=== PATIENT | female | born 1935 | race Caucasian/White ===

== ENCOUNTER → 2016-09-05 | Outpatient (REF) | payer MEDICARE, OTHER, MEDICAID ==
[~2016-09-05] MED LIST: ALPR0.25 PO; ATEN25TA PO; ATIV1TAB10 PO; ATIV1TAB7 PO; BETA0.12 EX; CARD360C PO; CENTTAB PO; DILT60TA PO; DULC10SU2 PR; HYDR25TAB PO; LANO0.1211 PO; LASI40TA PO; MICR10CA PO; OMEP10CASR PO; PRAD150C PO; SERT-141 PO; TYLE325T5 PO; ZOLO100T PO; [UNRECOGNIZED DRUG - OTHER] PO; mylicon PO
[2016-09-05 09:28] LABS: BASO % 0.7 % (0.0-1.0); EOS # 0.2 K/mm3 (0.0-0.50); EOS % 3.5 % (0.0-3.0); LARGE UNSTAINED CELL # 0.1 K/mm3 (0.0-0.4); LARGE UNSTAINED CELL % 2.1 % (0.0-4.0); LYMPH # 1.3 K/mm3 (1.5-4.5); LYMPH % 22.4 % (24.0-44.0); MEAN CORPUSCULAR HEMOGLOBIN 30.4 pg (27.0-33.0); MEAN CORPUSCULAR HGB CONC 32.5 g/dl (32.0-36.5); MEAN CORPUSCULAR VOLUME 93.6 fl (80.0-96.0); MONO # 0.4 K/mm3 (0.0-0.8); MONO % 7.1 % (0.0-5.0); NEUTROPHILS # 3.8 K/mm3 (1.8-7.7); NEUTROPHILS % 64.1 % (36.0-66.0); PLATELET COUNT, AUTOMATED 238 k/mm3 (150-450); RED CELL DISTRIBUTION WIDTH 12.3 % (11.5-14.5); WHITE BLOOD COUNT 5.8 K/mm3 (4.0-10.0)
[2016-09-05 09:51] LABS: ANION GAP 8 MEQ/L (8-16); BLOOD UREA NITROGEN 23 MG/DL (7-18); CALCIUM LEVEL 8.9 MG/DL (8.8-10.2); CARBON DIOXIDE LEVEL 31 MEQ/L (21-32); CHLORIDE LEVEL 95 MEQ/L (98-107); CREATININE FOR GFR 0.84 MG/DL (0.55-1.02); GLOMERULAR FILTRATION RATE > 60.0 (>32); GLUCOSE, FASTING 123 MG/DL (83-110); POTASSIUM SERUM 4.1 MEQ/L (3.5-5.1); SODIUM LEVEL 134 MEQ/L (136-145)
--- NOTE | 2016-09-05 17:06 | REP ---
Clinical: Shortness of breath . Comparison: 09/07/2014 . Findings: The mediastinum and cardiac silhouette are stable and within normal limits for portable technique. The lung beach are clear without acute consolidation, effusion, or pneumothorax. Incidental note is made of azygos fissure. Skeletal structures are intact. Impression: No acute cardiopulmonary process. Signed by Brennan Logan MD 09/05/2016 04:53 P
== END ==
LOC: SKLAB8 08:00
PROVIDERS: ATTEND Family Medicine
DX: R06.02 Shortness of breath (principal)

== ENCOUNTER → 2016-11-19 | Outpatient (CLI) | payer MEDICARE, OTHER, MEDICAID ==
[~2016-11-19] MED LIST changes: -SERT-141 PO; +SERT50TA PO
--- NOTE | 2016-11-19 15:40 | PFTRPT ---
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 The patient was unable to maintain a pant frequency of 60 breaths per minute during the lung volume measurements. The patient was unable to maintain a pant frequency of 60 to 90 breaths per minute during the airway resistance measurement; therefore, maneuvers were not reported. Several attempts were made. The patient was unable to perform DLCO maneuvers, as well. Unable to keep seal on mouthpiece for DLCO maneuver. The patient was given two puffs of albuterol for postbronchodilator. ORDERING PROVIDER: Cl Sorto M.D. DATE OF SERVICE: 11/19/16 The patient was unable to do the box maneuvers or diffusion capacity measurement. SPIROMETRY: Pre and post bronchodilator study of excellent technical quality. The forced vital capacity is severely reduced. The FEV1 is out of proportion. The obstructive index is, therefore, reduced. FLOW VOLUME LOOP: The expiratory limb of the flow volume loop is consistent with significant flow rate reductions. Very favorable bronchodilator response is identified. LUNG VOLUMES: The slow vital capacity is generally in proportion. DIFFUSION CAPACITY: As noted above, the patient was unable to perform maneuvers necessary for measurement of diffusion capacity. AIRWAY MECHANICS: Airways resistance and conductance were unable to be measured. IMPRESSION: Significant underlying obstructive ventilatory defect with a significant bronchodilator response. Air trapping is suspected. A full study had been recommended, but the patient was unable to perform the required maneuvers. Clinical correlation will be necessary. MTDD
== END ==
LOC: M CARPUL 14:46
PROVIDERS: ATTEND Family Medicine
DX: R06.2 Wheezing (principal)

== ENCOUNTER → 2017-04-30 | Outpatient (REF) | payer MEDICARE, OTHER, MEDICAID ==
[2017-04-30 09:28] LABS: BASO % 0.5 % (0.0-1.0); EOS # 0.3 10^3/uL (0.0-0.50); EOS % 5.3 % (0.0-3.0); IMMATURE GRANULOCYTE % 0.2 % (0-0); LYMPH # 1.4 10^3/uL (1.5-4.5); LYMPH % 24.1 % (24.0-44.0); MEAN CORPUSCULAR HGB CONC 32.3 g/dl (32.0-36.5); MEAN CORPUSCULAR VOLUME 95.8 fl (80.0-96.0); MONO # 0.5 10^3/uL (0.0-0.8); NEUTROPHILS # 3.4 10^3/uL (1.8-7.7); NEUTROPHILS % 60.9 % (36.0-66.0); PLATELET COUNT, AUTOMATED 224 10^3/uL (150-450); RED CELL DISTRIBUTION WIDTH 12.1 % (11.5-14.5); WHITE BLOOD COUNT 5.7 10^3/uL (4.0-10.0)
[2017-04-30 10:16] LABS: ALBUMIN 3.4 GM/DL (3.2-5.2); ALBUMIN/GLOBULIN RATIO 0.87 (1.00-1.93); ALKALINE PHOSPHATASE 145 U/L (45-117); ALT/SGPT 18 U/L (12-78); ANION GAP 6 MEQ/L (8-16); AST/SGOT 13 U/L (15-37); BILIRUBIN,TOTAL 0.6 MG/DL (0.2-1.0); BLOOD UREA NITROGEN 26 MG/DL (7-18); CALCIUM LEVEL 8.8 MG/DL (8.8-10.2); CARBON DIOXIDE LEVEL 32 MEQ/L (21-32); CHLORIDE LEVEL 99 MEQ/L (98-107); GLOMERULAR FILTRATION RATE > 60.0 (>32); GLUCOSE, FASTING 118 MG/DL (83-110); POTASSIUM SERUM 4.2 MEQ/L (3.5-5.1); SODIUM LEVEL 137 MEQ/L (136-145); TOTAL PROTEIN 7.3 GM/DL (6.4-8.2)
== END ==
LOC: SKLAB7 07:00
PROVIDERS: ATTEND Family Medicine
DX: R60.9 Edema, unspecified (principal); F32.9 Major depressive disorder, single episode, unspecified

== ENCOUNTER → 2017-06-10 | Outpatient (REF) | payer MEDICARE, OTHER, MEDICAID ==
--- NOTE | 2017-06-10 10:15 | REP ---
Clinical: Pain. Fall. Technique: AP, lateral, bilateral oblique and sunrise views of the left knee. Comparison: 02/03/2013. Findings: Advanced tricompartmental osteoarthritic degenerative changes are again noted. Prepatellar soft tissue swelling is suggested. A small suprapatellar effusion cannot be excluded. No acute fracture or dislocation. Impression: Swelling and advanced tricompartmental osteoarthritic degenerative changes. No acute fracture or dislocation. Signed by Brennan Logan MD 06/10/2017 10:06 A
== END ==
LOC: SKLAB7 08:34
PROVIDERS: ATTEND Family Medicine
DX: M25.562 Pain in left knee (principal); W19.XXXA Unspecified fall, initial encounter; X58.XXXA Exposure to other specified factors, initial encounter; Y93.9 Activity, unspecified; Y92.9 Unspecified place or not applicable; Y99.8 Other external cause status

== ENCOUNTER → 2017-07-23 | Outpatient (REF) | payer MEDICARE, OTHER, MEDICAID ==
[2017-07-23 14:00] LABS: BASO % 0.3 % (0.0-1.0); EOS % 0.1 % (0.0-3.0); HEMATOCRIT 41.7 % (36.0-47.0); HEMOGLOBIN 13.4 g/dl (12.0-16.0); IMMATURE GRANULOCYTE # 0.1 10^3/uL (0-0); IMMATURE GRANULOCYTE % 0.5 % (0-0); LYMPH # 1.1 10^3/uL (1.5-4.5); LYMPH % 10.8 % (24.0-44.0); MEAN CORPUSCULAR HGB CONC 32.1 g/dl (32.0-36.5); MEAN CORPUSCULAR VOLUME 96.5 fl (80.0-96.0); MONO # 0.8 10^3/uL (0.0-0.8); MONO % 7.7 % (0.0-5.0); NEUTROPHILS # 8.3 10^3/uL (1.8-7.7); NEUTROPHILS % 80.6 % (36.0-66.0); PLATELET COUNT, AUTOMATED 221 10^3/uL (150-450); RED BLOOD COUNT 4.32 10^6/uL (4.00-5.40); WHITE BLOOD COUNT 10.3 10^3/uL (4.0-10.0)
[2017-07-23 14:20] LABS: ANION GAP 8 MEQ/L (8-16); BLOOD UREA NITROGEN 28 MG/DL (7-18); CARBON DIOXIDE LEVEL 31 MEQ/L (21-32); CHLORIDE LEVEL 97 MEQ/L (98-107); CREATININE FOR GFR 0.86 MG/DL (0.55-1.02); GLOMERULAR FILTRATION RATE > 60.0 (>32); GLUCOSE, FASTING 170 MG/DL (83-110); POTASSIUM SERUM 3.8 MEQ/L (3.5-5.1); SODIUM LEVEL 136 MEQ/L (136-145)
== END ==
LOC: SKLAB7 13:24
DX: R05 Cough (principal)
CPT/HCPCS: 71046

== ENCOUNTER → 2017-07-29 | Outpatient (REF) | payer MEDICARE, OTHER, MEDICAID | LOC: SKLAB7 11:07 | DX: R05 Cough (principal); R09.89 Other specified symptoms and signs involving the circulatory and respiratory systems | CPT/HCPCS: 87205 ==

== ENCOUNTER → 2017-10-29 | Outpatient (REF) | payer MEDICARE, OTHER, MEDICAID | LOC: SKLAB7 15:13 | DX: E03.9 Hypothyroidism, unspecified (principal) | CPT/HCPCS: 84443 ==

== ENCOUNTER → 2017-11-25 | Outpatient (REF) | payer MEDICARE, OTHER, MEDICAID | LOC: SKLAB7 11:13 | DX: M19.012 Primary osteoarthritis, left shoulder (principal) | CPT/HCPCS: 73030 ==

== ENCOUNTER 2018-01-20 08:00 | Outpatient (REF) | payer MEDICARE, OTHER, MEDICAID ==
[2018-01-22 08:06] LABS: HEMATOCRIT 43.2 % (36.0-47.0); HEMOGLOBIN 14.3 g/dl (12.0-15.5); MEAN CORPUSCULAR HEMOGLOBIN 31.3 pg (27.0-33.0); MEAN CORPUSCULAR HGB CONC 33.1 g/dl (32.0-36.5); MEAN CORPUSCULAR VOLUME 94.5 fl (80.0-96.0); PLATELET COUNT, AUTOMATED 186 10^3/uL (150-450); RED BLOOD COUNT 4.57 10^6/uL (4.00-5.40); RED CELL DISTRIBUTION WIDTH 12.2 % (11.5-14.5); WHITE BLOOD COUNT 9.7 10^3/uL (4.0-10.0)
== END 2018-01-22 ==
LOC: SKLAB7 08:00
DX: Z01.818 Encounter for other preprocedural examination (principal)
CPT/HCPCS: 36415

== ENCOUNTER → 2018-01-20 | Outpatient (REF) | payer MEDICARE, OTHER, MEDICAID ==
[2018-01-20 08:07] LABS: BASO % 0.3 % (0.0-1.0); EOS # 0.1 10^3/uL (0.0-0.50); EOS % 1.2 % (0.0-3.0); HEMATOCRIT 49.7 % (36.0-47.0); HEMOGLOBIN 16.4 g/dl (12.0-15.5); IMMATURE GRANULOCYTE % 0.5 % (0-3.0); LYMPH # 1.5 10^3/uL (1.5-4.5); LYMPH % 14.4 % (24.0-44.0); MEAN CORPUSCULAR HEMOGLOBIN 30.9 pg (27.0-33.0); MEAN CORPUSCULAR VOLUME 93.8 fl (80.0-96.0); MONO # 0.9 10^3/uL (0.0-0.8); MONO % 8.8 % (0.0-5.0); NEUTROPHILS # 7.8 10^3/uL (1.8-7.7); NEUTROPHILS % 74.8 % (36.0-66.0); PLATELET COUNT, AUTOMATED 236 10^3/uL (150-450); RED CELL DISTRIBUTION WIDTH 12.1 % (11.5-14.5); WHITE BLOOD COUNT 10.5 10^3/uL (4.0-10.0)
[2018-01-20 08:33] LABS: ALBUMIN 3.5 GM/DL (3.2-5.2); ALKALINE PHOSPHATASE 122 U/L (45-117); ALT/SGPT 23 U/L (12-78); ANION GAP 5 MEQ/L (8-16); AST/SGOT 13 U/L (7-37); BILIRUBIN,TOTAL 0.7 MG/DL (0.2-1.0); BLOOD UREA NITROGEN 30 MG/DL (7-18); CARBON DIOXIDE LEVEL 34 MEQ/L (21-32); CHLORIDE LEVEL 100 MEQ/L (98-107); CREATININE FOR GFR 0.85 MG/DL (0.55-1.30); GLOMERULAR FILTRATION RATE > 60.0 (>32); GLUCOSE, FASTING 90 MG/DL (70-100); POTASSIUM SERUM 4.2 MEQ/L (3.5-5.1); SODIUM LEVEL 139 MEQ/L (136-145); TOTAL PROTEIN 7.4 GM/DL (6.4-8.2)
== END ==
LOC: SKLAB7 08:00
DX: Z01.812 Encounter for preprocedural laboratory examination (principal); H26.9 Unspecified cataract; Z79.899 Other long term (current) drug therapy
CPT/HCPCS: 84443

== ENCOUNTER 2018-01-28 07:17 | Day surgery (SDC) | payer MEDICARE, OTHER, MEDICAID ==
[2018-01-28] MEDS: PHENYLEPHRINE 2.5% OPHTH SOL 2ML OS (07:58)
[2018-01-28] MEDS: TROPICAMIDE 1% OPHTH SOLN 2ML OS (07:58)
[2018-01-28] MEDS: PROPARACAINE 0.5% OPHTH SOL 15ML OS (07:58)
[2018-01-28] MEDS ORDERED: MIDAZOLAM INJ 2 MG/2 ML VIAL (J2250) As Ordered (08:28)
[2018-01-28] MEDS ORDERED: fentaNYL 100 MCG/2 ML INJECTION (J3010) As Ordered (08:28)
[2018-01-28] MEDS ORDERED: LABETALOL HCL 100 MG/20 ML VIAL As Ordered (09:00)
[2018-01-28] MEDS: DUOVISC (0.50ML VISCOAT/0.55ML PROVISC) OPHTH KIT As Ordered (09:03)
[2018-01-28] MEDS: BALANCED SALT IRRIGATION SOLUTION 500ML BAG (FOR OR EYE MACHINE) As Ordered (09:03)
[2018-01-28] MEDS: POVIDONE-IODINE 5% OPHTH PREP SOL 30ML As Ordered (09:03)
[2018-01-28] MEDS: LIDOCAINE 0.75%/EPINEPHRINE 0.025% IN BSS 1ML SYR INTRACAMERAL (OR ONLY) As Ordered (09:04)
[2018-01-28] MEDS: CEFUROXIME 1MG/0.1ML INTRACAMERAL INJ As Ordered (09:04)
== END 2018-01-28 10:13 | disposition home or self-care (01) ==
LOC: M SDC 07:17
DX: H25.12 Age-related nuclear cataract, left eye (principal); I48.2 Chronic atrial fibrillation; I25.10 Atherosclerotic heart disease of native coronary artery without angina pectoris; I10 Essential (primary) hypertension; R60.0 Localized edema; K21.9 Gastro-esophageal reflux disease without esophagitis; M15.9 Polyosteoarthritis, unspecified; F41.9 Anxiety disorder, unspecified; F32.9 Major depressive disorder, single episode, unspecified; F03.90 Unspecified dementia, unspecified severity, without behavioral disturbance, psychotic disturbance, mood disturbance, and anxiety; J44.9 Chronic obstructive pulmonary disease, unspecified; R06.02 Shortness of breath; Z88.1 Allergy status to other antibiotic agents; Z88.8 Allergy status to other drugs, medicaments and biological substances; Z79.899 Other long term (current) drug therapy; Z79.82 Long term (current) use of aspirin; Z86.12 Personal history of poliomyelitis; Z87.891 Personal history of nicotine dependence
CPT/HCPCS: 66984

== ENCOUNTER 2018-02-04 08:16 | Day surgery (SDC) | payer MEDICARE, OTHER, MEDICAID ==
[~2018-02-04 08:16] MED LIST changes: -ALPR0.25 PO; -ATEN25TA PO; -ATIV1TAB10 PO; -ATIV1TAB7 PO; -BETA0.12 EX; -CARD360C PO; -CENTTAB PO; -DILT60TA PO; -DULC10SU2 PR; -HYDR25TAB PO; -LANO0.1211 PO; -LASI40TA PO; -MICR10CA PO; +MIDAZOLAM INJ 2 MG/2 ML VIAL (J2250) As Ordered; -OMEP10CASR PO; -PRAD150C PO; -SERT50TA PO; -TYLE325T5 PO; -ZOLO100T PO; -[UNRECOGNIZED DRUG - OTHER] PO; +fentaNYL 100 MCG/2 ML INJECTION (J3010) As Ordered; -mylicon PO
[2018-02-04] MEDS: PHENYLEPHRINE 2.5% OPHTH SOL 2ML OD (09:05)
[2018-02-04] MEDS: TROPICAMIDE 1% OPHTH SOLN 2ML OD (09:05)
[2018-02-04] MEDS: PROPARACAINE 0.5% OPHTH SOL 15ML OD (09:11)
[2018-02-04] MEDS: OFLOXACIN 0.3 % (OCUFLOX) OPTH SOL 5ML OD (09:35)
[2018-02-04] MEDS: DUOVISC (0.50ML VISCOAT/0.55ML PROVISC) OPHTH KIT As Ordered (10:42)
[2018-02-04] MEDS: LIDOCAINE 0.75%/EPINEPHRINE 0.025% IN BSS 1ML SYR INTRACAMERAL (OR ONLY) As Ordered (10:42)
[2018-02-04] MEDS: POVIDONE-IODINE 5% OPHTH PREP SOL 30ML As Ordered (10:42)
[2018-02-04] MEDS: CEFUROXIME 1MG/0.1ML INTRACAMERAL INJ As Ordered (10:42)
[2018-02-04] MEDS: BALANCED SALT IRRIGATION SOLUTION 500ML BAG (FOR OR EYE MACHINE) As Ordered (10:42)
== END 2018-02-04 11:40 | disposition home or self-care (01) ==
LOC: M SDC 08:16
DX: H25.11 Age-related nuclear cataract, right eye (principal); J44.9 Chronic obstructive pulmonary disease, unspecified; I10 Essential (primary) hypertension; I25.10 Atherosclerotic heart disease of native coronary artery without angina pectoris; F32.9 Major depressive disorder, single episode, unspecified; F41.9 Anxiety disorder, unspecified; K21.9 Gastro-esophageal reflux disease without esophagitis; Z87.891 Personal history of nicotine dependence; Z79.82 Long term (current) use of aspirin; Z79.899 Other long term (current) drug therapy; Z79.52 Long term (current) use of systemic steroids
CPT/HCPCS: 66984

== ENCOUNTER → 2018-02-16 | Outpatient (REF) | payer MEDICARE, OTHER, MEDICAID ==
[2018-02-16 12:26] LABS: ANION GAP 8 MEQ/L (8-16); BLOOD UREA NITROGEN 19 MG/DL (7-18); CALCIUM LEVEL 8.7 MG/DL (8.8-10.2); CARBON DIOXIDE LEVEL 35 MEQ/L (21-32); CHLORIDE LEVEL 97 MEQ/L (98-107); CREATININE FOR GFR 0.65 MG/DL (0.55-1.30); GLOMERULAR FILTRATION RATE > 60.0 (>32); GLUCOSE, FASTING 97 MG/DL (70-100); NT-PRO BNP 1725 PG/ML (<450); POTASSIUM SERUM 3.8 MEQ/L (3.5-5.1); SODIUM LEVEL 140 MEQ/L (136-145)
== END ==
LOC: SKLAB7 07:00
DX: R60.9 Edema, unspecified (principal)
CPT/HCPCS: 80048

== ENCOUNTER → 2018-02-24 | Outpatient (REF) | payer MEDICARE, OTHER, MEDICAID ==
[2018-02-24 07:33] LABS: ANION GAP 3 MEQ/L (8-16); BLOOD UREA NITROGEN 22 MG/DL (7-18); CALCIUM LEVEL 8.4 MG/DL (8.8-10.2); CARBON DIOXIDE LEVEL 41 MEQ/L (21-32); CHLORIDE LEVEL 97 MEQ/L (98-107); CREATININE FOR GFR 0.75 MG/DL (0.55-1.30); GLOMERULAR FILTRATION RATE > 60.0 (>32); GLUCOSE, FASTING 83 MG/DL (70-100); SODIUM LEVEL 141 MEQ/L (136-145)
== END ==
LOC: SKLAB7 12:39
DX: R60.9 Edema, unspecified (principal)
CPT/HCPCS: 80048

== ENCOUNTER → 2018-03-25 | Outpatient (REF) | payer MEDICARE, OTHER, MEDICAID | LOC: SKLAB7 23:47 | DX: H10.9 Unspecified conjunctivitis (principal) | CPT/HCPCS: 87070 ==

== ENCOUNTER → 2018-04-29 | Outpatient (REF) | payer MEDICARE, OTHER, MEDICAID | LOC: SKLAB7 14:34 | DX: R60.9 Edema, unspecified (principal); I25.10 Atherosclerotic heart disease of native coronary artery without angina pectoris | CPT/HCPCS: 84443 ==

== ENCOUNTER 2018-06-05 08:22 | Inpatient (IN) | payer MEDICARE, OTHER, MEDICAID ==
[2018-06-05] MEDS: FUROSEMIDE 80 MG TAB PO (09:00)
[2018-06-05] MEDS: predniSONE 2.5 MG TAB PO (09:00)
[2018-06-05] MEDS: ASPIRIN 81 MG ENTERIC TAB PO (09:00)
[2018-06-05] MEDS: NS 500 ML IV (09:54)
[2018-06-05 09:55] LABS: BASO % 0.3 % (0.0-1.0); EOS # 0.2 10^3/uL (0.0-0.50); EOS % 2.5 % (0.0-3.0); HEMATOCRIT 39.9 % (36.0-47.0); HEMOGLOBIN 13.1 g/dl (12.0-15.5); IMMATURE GRANULOCYTE % 0.2 % (0-3.0); LYMPH # 1.1 10^3/uL (1.5-4.5); LYMPH % 12.1 % (24.0-44.0); MEAN CORPUSCULAR HEMOGLOBIN 31.6 pg (27.0-33.0); MEAN CORPUSCULAR HGB CONC 32.8 g/dl (32.0-36.5); MEAN CORPUSCULAR VOLUME 96.4 fl (80.0-96.0); MONO # 0.9 10^3/uL (0.0-0.8); MONO % 10.2 % (0.0-5.0); NEUTROPHILS # 6.7 10^3/uL (1.8-7.7); NEUTROPHILS % 74.7 % (36.0-66.0); PLATELET COUNT, AUTOMATED 190 10^3/uL (150-450); RED BLOOD COUNT 4.14 10^6/uL (4.00-5.40); RED CELL DISTRIBUTION WIDTH 12.1 % (11.5-14.5); WHITE BLOOD COUNT 8.9 10^3/uL (4.0-10.0)
[2018-06-05 10:25] LABS: ANION GAP 5 MEQ/L (8-16); BLOOD UREA NITROGEN 23 MG/DL (7-18); CALCIUM LEVEL 8.6 MG/DL (8.8-10.2); CARBON DIOXIDE LEVEL 35 MEQ/L (21-32); CHLORIDE LEVEL 103 MEQ/L (98-107); CK-MB VALUE MASS < 1.0 NG/ML (<3.6); CPK CREATINE PHOSPHOKINASE 26 U/L (26-192); CREATININE FOR GFR 0.82 MG/DL (0.55-1.30); GLOMERULAR FILTRATION RATE > 60.0 (>32); GLUCOSE, FASTING 93 MG/DL (70-100); MB/CK RELATIVE INDEX 3.85 (< OR =4); POTASSIUM SERUM 3.3 MEQ/L (3.5-5.1); SODIUM LEVEL 143 MEQ/L (136-145); TROPONIN I < 0.02 NG/ML (< 0.10)
[2018-06-05 10:59] LABS: AMORPHOUS SEDIMENT RFX SMALL (NEGATIVE); KETONE, URINE AUTO RFX NEGATIVE (NEGATIVE); MUCUS, URINE RFX SMALL (NEGATIVE); NITRITE, URINE AUTO RFX NEGATIVE (NEGATIVE); RBC, URINE AUTO RFX 48 /HPF (0-3); SPECIFIC GRAVITY UR AUTO RFX 1.016 (1.002-1.035); SQUAM EPITHELIAL CELL UR AURFX 0 /HPF (0-6)
[2018-06-05 11:04] LABS: LEUKOCYTE ESTERASE UR AUTO RFX 3+ (NEGATIVE); WBC, URINE AUTO RFX TNTC /HPF (0-3)
[2018-06-05] MEDS: diltiaZEM **CD** 180 MG CAP PO ×2 (11:48→20:35)
[2018-06-05] MEDS ORDERED: BISACODYL 10 MG SUPP PR (16:15)
[2018-06-05] MEDS ORDERED: IPRATROPIUM 0.5MG/ALBUTEROL 2.5MG INH SOL UD 3ML (DUONEB)(J7620) INH (16:15)
[2018-06-05] MEDS ORDERED: SIMETHICONE 80 MG CHEW TAB PO (16:15)
[2018-06-05] MEDS: METOPROLOL 5 MG/5 ML VIAL IV (16:22)
[2018-06-05] MEDS: POTASSIUM CHLORIDE 10 MEQ SR TABLET PO (16:22)
[2018-06-05] MEDS: FOSFOMYCIN TROMETHAMINE 3 GM POWDER PACKET (MONUROL) PO (16:22)
[2018-06-05] MEDS: IPRATROPIUM 0.5MG/ALBUTEROL 2.5MG INH SOL UD 3ML (DUONEB)(J7620) NEB (20:01)
[2018-06-05] MEDS: LORazepam 0.5 MG TAB PO (20:35)
[2018-06-05] MEDS: QUEtiapine FUMARATE 25 MG TAB PO (20:35)
[2018-06-05] MEDS: ACETAMINOPHEN TAB 650MG DOSE (2X325MG) PO (20:36)
[2018-06-06 05:10] LABS: BASO % 0.5 % (0.0-1.0); EOS # 0.3 10^3/uL (0.0-0.50); HEMATOCRIT 38.7 % (36.0-47.0); HEMOGLOBIN 12.8 g/dl (12.0-15.5); IMMATURE GRANULOCYTE % 0.3 % (0-3.0); LYMPH # 1.6 10^3/uL (1.5-4.5); LYMPH % 25.6 % (24.0-44.0); MEAN CORPUSCULAR HEMOGLOBIN 31.2 pg (27.0-33.0); MEAN CORPUSCULAR HGB CONC 33.1 g/dl (32.0-36.5); MEAN CORPUSCULAR VOLUME 94.4 fl (80.0-96.0); MONO # 0.8 10^3/uL (0.0-0.8); MONO % 12.4 % (0.0-5.0); NEUTROPHILS # 3.6 10^3/uL (1.8-7.7); NEUTROPHILS % 56.2 % (36.0-66.0); PLATELET COUNT, AUTOMATED 186 10^3/uL (150-450); RED CELL DISTRIBUTION WIDTH 12.1 % (11.5-14.5); WHITE BLOOD COUNT 6.4 10^3/uL (4.0-10.0)
[2018-06-06 05:30] LABS: ALBUMIN 2.9 GM/DL (3.2-5.2); ANION GAP 6 MEQ/L (8-16); BLOOD UREA NITROGEN 24 MG/DL (7-18); CALCIUM LEVEL 8.8 MG/DL (8.8-10.2); CARBON DIOXIDE LEVEL 31 MEQ/L (21-32); CHLORIDE LEVEL 104 MEQ/L (98-107); CREATININE FOR GFR 0.72 MG/DL (0.55-1.30); GLOMERULAR FILTRATION RATE > 60.0 (>32); GLUCOSE, FASTING 80 MG/DL (70-100); MAGNESIUM LEVEL 2.2 MG/DL (1.8-2.4); PHOSPHORUS LEVEL 3.3 MG/DL (2.5-4.9); POTASSIUM SERUM 3.8 MEQ/L (3.5-5.1); SODIUM LEVEL 141 MEQ/L (136-145)
[2018-06-06] MEDS: IPRATROPIUM 0.5MG/ALBUTEROL 2.5MG INH SOL UD 3ML (DUONEB)(J7620) NEB ×2 (08:15→19:41)
[2018-06-06] MEDS: predniSONE 2.5 MG TAB PO (09:33)
[2018-06-06] MEDS: SERTRALINE HCL 50 MG TAB PO (09:33)
[2018-06-06] MEDS: FAMOTIDINE 20 MG TAB PO (09:33)
[2018-06-06] MEDS: diltiaZEM **CD** 180 MG CAP PO (09:33)
[2018-06-06] MEDS: ASPIRIN 81 MG ENTERIC TAB PO (09:33)
[2018-06-06] MEDS: ENOXAPARIN 40 MG/0.4 ML SYRINGE (J1650) SC (09:33)
[2018-06-06] MEDS: FUROSEMIDE 80 MG TAB PO (09:33)
[2018-06-06] MEDS: ACETAMINOPHEN TAB 650MG DOSE (2X325MG) PO ×2 (09:34→20:00)
[2018-06-06] MEDS: QUEtiapine FUMARATE 25 MG TAB PO (20:00)
[2018-06-06] MEDS: LORazepam 0.5 MG TAB PO (20:00)
[2018-06-06] MEDS: METOPROLOL TART 12.5 MG PER 1/2 TAB PO (22:59)
[2018-06-07 05:30] LABS: BASO % 0.5 % (0.0-1.0); EOS # 0.3 10^3/uL (0.0-0.50); EOS % 5.2 % (0.0-3.0); HEMATOCRIT 36.2 % (36.0-47.0); HEMOGLOBIN 11.9 g/dl (12.0-15.5); IMMATURE GRANULOCYTE % 0.2 % (0-3.0); LYMPH # 1.7 10^3/uL (1.5-4.5); LYMPH % 30.4 % (24.0-44.0); MEAN CORPUSCULAR HEMOGLOBIN 31.1 pg (27.0-33.0); MEAN CORPUSCULAR HGB CONC 32.9 g/dl (32.0-36.5); MEAN CORPUSCULAR VOLUME 94.5 fl (80.0-96.0); MONO # 0.6 10^3/uL (0.0-0.8); NEUTROPHILS % 52.7 % (36.0-66.0); PLATELET COUNT, AUTOMATED 189 10^3/uL (150-450); RED BLOOD COUNT 3.83 10^6/uL (4.00-5.40); RED CELL DISTRIBUTION WIDTH 12.2 % (11.5-14.5); WHITE BLOOD COUNT 5.6 10^3/uL (4.0-10.0)
[2018-06-07 05:52] LABS: ALBUMIN 2.6 GM/DL (3.2-5.2); ANION GAP 6 MEQ/L (8-16); BLOOD UREA NITROGEN 30 MG/DL (7-18); CALCIUM LEVEL 8.3 MG/DL (8.8-10.2); CARBON DIOXIDE LEVEL 31 MEQ/L (21-32); CHLORIDE LEVEL 105 MEQ/L (98-107); CREATININE FOR GFR 0.92 MG/DL (0.55-1.30); GLOMERULAR FILTRATION RATE > 60.0 (>32); GLUCOSE, FASTING 94 MG/DL (70-100); PHOSPHORUS LEVEL 4.2 MG/DL (2.5-4.9); POTASSIUM SERUM 3.6 MEQ/L (3.5-5.1); SODIUM LEVEL 142 MEQ/L (136-145)
[2018-06-07] MEDS: IPRATROPIUM 0.5MG/ALBUTEROL 2.5MG INH SOL UD 3ML (DUONEB)(J7620) NEB ×2 (08:08→20:21)
[2018-06-07] MEDS: ENOXAPARIN 40 MG/0.4 ML SYRINGE (J1650) SC (08:52)
[2018-06-07] MEDS: predniSONE 2.5 MG TAB PO (08:52)
[2018-06-07] MEDS: ASPIRIN 81 MG ENTERIC TAB PO (08:53)
[2018-06-07] MEDS: ACETAMINOPHEN TAB 650MG DOSE (2X325MG) PO ×2 (08:53→20:05)
[2018-06-07] MEDS: SERTRALINE HCL 50 MG TAB PO (08:53)
[2018-06-07] MEDS: FUROSEMIDE 80 MG TAB PO (08:53)
[2018-06-07] MEDS: FAMOTIDINE 20 MG TAB PO (08:53)
[2018-06-07] MEDS ORDERED: SLF 3 ML SYR IV (11:45)
[2018-06-07] MEDS: SLF 3 ML SYR IV ×2 (14:32→20:05)
[2018-06-07] MEDS: LORazepam 0.5 MG TAB PO (20:05)
[2018-06-07] MEDS: QUEtiapine FUMARATE 25 MG TAB PO (20:05)
[2018-06-08] MEDS: SLF 3 ML SYR IV ×3 (05:46→20:43)
[2018-06-08 05:57] LABS: BASO % 0.6 % (0.0-1.0); EOS # 0.4 10^3/uL (0.0-0.50); EOS % 6.6 % (0.0-3.0); HEMATOCRIT 34.3 % (36.0-47.0); HEMOGLOBIN 11.4 g/dl (12.0-15.5); IMMATURE GRANULOCYTE % 0.3 % (0-3.0); LYMPH # 1.8 10^3/uL (1.5-4.5); LYMPH % 29.1 % (24.0-44.0); MEAN CORPUSCULAR HEMOGLOBIN 31.4 pg (27.0-33.0); MEAN CORPUSCULAR HGB CONC 33.2 g/dl (32.0-36.5); MEAN CORPUSCULAR VOLUME 94.5 fl (80.0-96.0); MONO # 0.7 10^3/uL (0.0-0.8); NEUTROPHILS # 3.3 10^3/uL (1.8-7.7); NEUTROPHILS % 52.4 % (36.0-66.0); PLATELET COUNT, AUTOMATED 191 10^3/uL (150-450); RED BLOOD COUNT 3.63 10^6/uL (4.00-5.40); RED CELL DISTRIBUTION WIDTH 12.2 % (11.5-14.5); WHITE BLOOD COUNT 6.2 10^3/uL (4.0-10.0)
[2018-06-08 06:24] LABS: ALBUMIN 2.6 GM/DL (3.2-5.2); ANION GAP 7 MEQ/L (8-16); BLOOD UREA NITROGEN 30 MG/DL (7-18); CALCIUM LEVEL 8.2 MG/DL (8.8-10.2); CARBON DIOXIDE LEVEL 30 MEQ/L (21-32); CHLORIDE LEVEL 104 MEQ/L (98-107); CREATININE FOR GFR 0.83 MG/DL (0.55-1.30); GLOMERULAR FILTRATION RATE > 60.0 (>32); GLUCOSE, FASTING 89 MG/DL (70-100); PHOSPHORUS LEVEL 3.9 MG/DL (2.5-4.9); SODIUM LEVEL 141 MEQ/L (136-145)
[2018-06-08] MEDS: FAMOTIDINE 20 MG TAB PO (07:59)
[2018-06-08] MEDS: IPRATROPIUM 0.5MG/ALBUTEROL 2.5MG INH SOL UD 3ML (DUONEB)(J7620) NEB ×2 (08:13→20:00)
[2018-06-08] MEDS: FUROSEMIDE 80 MG TAB PO (08:29)
[2018-06-08] MEDS: SERTRALINE HCL 50 MG TAB PO (08:29)
[2018-06-08] MEDS: ASPIRIN 81 MG ENTERIC TAB PO (08:30)
[2018-06-08] MEDS: ACETAMINOPHEN TAB 650MG DOSE (2X325MG) PO ×3 (08:32→20:43)
[2018-06-08] MEDS: predniSONE 2.5 MG TAB PO (08:32)
[2018-06-08] MEDS: ENOXAPARIN 40 MG/0.4 ML SYRINGE (J1650) SC (08:33)
[2018-06-08] MEDS: QUEtiapine FUMARATE 25 MG TAB PO (20:43)
[2018-06-08] MEDS: LORazepam 0.5 MG TAB PO (20:43)
[2018-06-09] MEDS: SLF 3 ML SYR IV ×3 (05:06→20:37)
[2018-06-09 06:36] LABS: BASO % 0.7 % (0.0-1.0); EOS # 0.5 10^3/uL (0.0-0.50); EOS % 8.6 % (0.0-3.0); HEMATOCRIT 37.3 % (36.0-47.0); HEMOGLOBIN 12.4 g/dl (12.0-15.5); IMMATURE GRANULOCYTE % 0.2 % (0-3.0); LYMPH # 1.7 10^3/uL (1.5-4.5); LYMPH % 28.8 % (24.0-44.0); MEAN CORPUSCULAR HEMOGLOBIN 31.5 pg (27.0-33.0); MEAN CORPUSCULAR HGB CONC 33.2 g/dl (32.0-36.5); MEAN CORPUSCULAR VOLUME 94.7 fl (80.0-96.0); MONO # 0.6 10^3/uL (0.0-0.8); MONO % 10.1 % (0.0-5.0); NEUTROPHILS % 51.6 % (36.0-66.0); PLATELET COUNT, AUTOMATED 210 10^3/uL (150-450); RED BLOOD COUNT 3.94 10^6/uL (4.00-5.40); WHITE BLOOD COUNT 5.8 10^3/uL (4.0-10.0)
[2018-06-09 07:00] LABS: ALBUMIN 2.8 GM/DL (3.2-5.2); ANION GAP 6 MEQ/L (8-16); BLOOD UREA NITROGEN 31 MG/DL (7-18); CALCIUM LEVEL 8.8 MG/DL (8.8-10.2); CARBON DIOXIDE LEVEL 31 MEQ/L (21-32); CHLORIDE LEVEL 102 MEQ/L (98-107); CREATININE FOR GFR 0.74 MG/DL (0.55-1.30); GLOMERULAR FILTRATION RATE > 60.0 (>32); GLUCOSE, FASTING 91 MG/DL (70-100); MAGNESIUM LEVEL 2.3 MG/DL (1.8-2.4); PHOSPHORUS LEVEL 3.6 MG/DL (2.5-4.9); POTASSIUM SERUM 3.8 MEQ/L (3.5-5.1); SODIUM LEVEL 139 MEQ/L (136-145)
[2018-06-09] MEDS: ENOXAPARIN 40 MG/0.4 ML SYRINGE (J1650) SC (08:09)
[2018-06-09] MEDS: SERTRALINE HCL 50 MG TAB PO (08:09)
[2018-06-09] MEDS: FAMOTIDINE 20 MG TAB PO (08:09)
[2018-06-09] MEDS: ACETAMINOPHEN TAB 650MG DOSE (2X325MG) PO ×2 (08:10→20:36)
[2018-06-09] MEDS: FUROSEMIDE 80 MG TAB PO (08:10)
[2018-06-09] MEDS: predniSONE 2.5 MG TAB PO (08:10)
[2018-06-09] MEDS: ASPIRIN 81 MG ENTERIC TAB PO (08:10)
[2018-06-09] MEDS: IPRATROPIUM 0.5MG/ALBUTEROL 2.5MG INH SOL UD 3ML (DUONEB)(J7620) NEB ×2 (08:33→20:40)
[2018-06-09] MEDS: DIGOXIN 0.125 MG TAB PO (11:41)
[2018-06-09] MEDS: CEPHALEXIN 500 MG CAP PO ×2 (11:42→20:37)
[2018-06-09] MEDS: QUEtiapine FUMARATE 25 MG TAB PO (20:36)
[2018-06-09] MEDS: LORazepam 0.5 MG TAB PO (20:37)
[2018-06-10] MEDS: SLF 3 ML SYR IV (05:22)
[2018-06-10 06:11] LABS: BASO % 0.5 % (0.0-1.0); EOS # 0.4 10^3/uL (0.0-0.50); EOS % 6.1 % (0.0-3.0); HEMATOCRIT 36.3 % (36.0-47.0); HEMOGLOBIN 11.9 g/dl (12.0-15.5); IMMATURE GRANULOCYTE % 0.2 % (0-3.0); LYMPH # 1.3 10^3/uL (1.5-4.5); LYMPH % 19.8 % (24.0-44.0); MEAN CORPUSCULAR HEMOGLOBIN 31.2 pg (27.0-33.0); MEAN CORPUSCULAR HGB CONC 32.8 g/dl (32.0-36.5); MEAN CORPUSCULAR VOLUME 95.3 fl (80.0-96.0); MONO # 0.8 10^3/uL (0.0-0.8); MONO % 12.1 % (0.0-5.0); NEUTROPHILS % 61.3 % (36.0-66.0); PLATELET COUNT, AUTOMATED 185 10^3/uL (150-450); RED BLOOD COUNT 3.81 10^6/uL (4.00-5.40); WHITE BLOOD COUNT 6.6 10^3/uL (4.0-10.0)
[2018-06-10 06:44] LABS: ALBUMIN 2.7 GM/DL (3.2-5.2); ANION GAP 7 MEQ/L (8-16); BLOOD UREA NITROGEN 38 MG/DL (7-18); CALCIUM LEVEL 8.4 MG/DL (8.8-10.2); CARBON DIOXIDE LEVEL 29 MEQ/L (21-32); CHLORIDE LEVEL 102 MEQ/L (98-107); CREATININE FOR GFR 0.86 MG/DL (0.55-1.30); GLOMERULAR FILTRATION RATE > 60.0 (>32); GLUCOSE, FASTING 91 MG/DL (70-100); MAGNESIUM LEVEL 2.3 MG/DL (1.8-2.4); PHOSPHORUS LEVEL 3.7 MG/DL (2.5-4.9); POTASSIUM SERUM 4.2 MEQ/L (3.5-5.1); SODIUM LEVEL 138 MEQ/L (136-145)
[2018-06-10] MEDS: IPRATROPIUM 0.5MG/ALBUTEROL 2.5MG INH SOL UD 3ML (DUONEB)(J7620) NEB (07:10)
[2018-06-10] MEDS: CEPHALEXIN 500 MG CAP PO (08:45)
[2018-06-10] MEDS: ENOXAPARIN 40 MG/0.4 ML SYRINGE (J1650) SC (08:45)
[2018-06-10] MEDS: FAMOTIDINE 20 MG TAB PO (08:45)
[2018-06-10] MEDS: predniSONE 2.5 MG TAB PO (08:45)
[2018-06-10] MEDS: FUROSEMIDE 80 MG TAB PO (08:46)
[2018-06-10] MEDS: SERTRALINE HCL 50 MG TAB PO (08:46)
[2018-06-10] MEDS: ASPIRIN 81 MG ENTERIC TAB PO (08:46)
[2018-06-10] MEDS: DIGOXIN 0.125 MG TAB PO (08:46)
[2018-06-10] MEDS: ACETAMINOPHEN TAB 650MG DOSE (2X325MG) PO (08:47)
== END 2018-06-10 12:16 | DRG 309 ==
LOC: M ED 08:22 → M ED INP 15:50 → M PCU 17:09
DX: I48.2 Chronic atrial fibrillation (principal); N39.0 Urinary tract infection, site not specified; F03.90 Unspecified dementia, unspecified severity, without behavioral disturbance, psychotic disturbance, mood disturbance, and anxiety; I11.0 Hypertensive heart disease with heart failure; I50.9 Heart failure, unspecified; F32.9 Major depressive disorder, single episode, unspecified; E78.5 Hyperlipidemia, unspecified; M19.90 Unspecified osteoarthritis, unspecified site; K21.9 Gastro-esophageal reflux disease without esophagitis; M25.512 Pain in left shoulder; J44.9 Chronic obstructive pulmonary disease, unspecified; Z88.8 Allergy status to other drugs, medicaments and biological substances; Z79.82 Long term (current) use of aspirin; Z79.52 Long term (current) use of systemic steroids; Z79.899 Other long term (current) drug therapy; Z88.1 Allergy status to other antibiotic agents; B96.4 Proteus (mirabilis) (morganii) as the cause of diseases classified elsewhere; S05.12XA Contusion of eyeball and orbital tissues, left eye, initial encounter; W18.11XA Fall from or off toilet without subsequent striking against object, initial encounter; Y92.121 Bathroom in nursing home as the place of occurrence of the external cause

== ENCOUNTER → 2018-06-11 | Outpatient (REF) | payer MEDICARE, OTHER, MEDICAID | LOC: SKLAB7 09:38 | DX: S99.912A Unspecified injury of left ankle, initial encounter (principal); W19.XXXA Unspecified fall, initial encounter; Y92.129 Unspecified place in nursing home as the place of occurrence of the external cause; Y93.9 Activity, unspecified; Y99.9 Unspecified external cause status | CPT/HCPCS: 73610 ==

== ENCOUNTER → 2018-06-17 | Outpatient (REF) | payer MEDICAID, MEDICARE, OTHER ==
[~2018-06-17] MED LIST changes: +ALPR0.25 PO; +ASPI1TAB PO; +ASPI81TA24 PO; +ATEN25TA PO; +ATIV1TAB10 PO; +ATIV1TAB7 PO; +BETA0.12 EX; +CARD120C3 PO; +CARD360C PO; +CENTTAB PO; +CEPH500C PO; +DIGO0.12 PO; +DILT180C74 PO; +DILT60TA PO; +DULC10SU2 PR; +FAMO20TA PO; +FEVE650S3 PR; +FLEEENE4 PR; +FURO80TA2 PO; +HYDR25TAB PO; +IPRA0.00 INH; +IPRA0.00 NEB; +LANO0.1211 PO; +LASI40TA9 PO; +LORA0.5T11 PO; +MICR10CA PO; -MIDAZOLAM INJ 2 MG/2 ML VIAL (J2250) As Ordered; +OMEP10CASR PO; +PRAD150C PO; +PRED25TA PO; +PRED5PAK2 PO; +SERO1TAB3 PO; +SERT50TA PO; +SIME80TA PO; +TYLE325T5 PO; +WAL-100S PO; +ZOLO100T PO; +[UNRECOGNIZED DRUG - OTHER] PO; -fentaNYL 100 MCG/2 ML INJECTION (J3010) As Ordered; +mylicon PO
== END ==
LOC: SKLAB7 08:00
PROVIDERS: ATTEND Family Medicine
DX: I48.91 Unspecified atrial fibrillation (principal); Z79.899 Other long term (current) drug therapy

== ENCOUNTER → 2018-06-24 | Outpatient (REF) | payer MEDICAID, MEDICARE, OTHER | LOC: SKLAB7 08:47 | PROVIDERS: ATTEND Family Medicine | DX: I48.91 Unspecified atrial fibrillation (principal); Z79.899 Other long term (current) drug therapy ==

== ENCOUNTER → 2018-07-14 | Outpatient (REF) | payer MEDICARE, MEDICAID, OTHER ==
--- NOTE | 2018-07-14 15:21 | REP ---
Chest one-view HISTORY: Cough Comparison: 07/23/2017 The lungs are clear. The heart is normal in size. The pulmonary vasculature is normal in appearance. Impression: No acute disease. Electronically Signed by Noe Romero MD 07/14/2018 03:13 P
[2018-07-14 17:07] LABS: BLOOD UREA NITROGEN 21 MG/DL (7-18); CALCIUM LEVEL 8.8 MG/DL (8.8-10.2); CARBON DIOXIDE LEVEL 33 MEQ/L (21-32); CHLORIDE LEVEL 99 MEQ/L (98-107); CREATININE FOR GFR 0.89 MG/DL (0.55-1.30); GLOMERULAR FILTRATION RATE > 60.0 (>32); GLUCOSE, FASTING 106 MG/DL (70-100); NT-PRO BNP 1850 PG/ML (<450); POTASSIUM SERUM 4.6 MEQ/L (3.5-5.1); SODIUM LEVEL 138 MEQ/L (136-145)
[2018-07-14 17:34] LABS: HEMATOCRIT 39.6 % (36.0-47.0); HEMOGLOBIN 13.1 g/dl (12.0-15.5); MEAN CORPUSCULAR HEMOGLOBIN 31.3 pg (27.0-33.0); MEAN CORPUSCULAR HGB CONC 33.1 g/dl (32.0-36.5); MEAN CORPUSCULAR VOLUME 94.7 fl (80.0-96.0); PLATELET COUNT, AUTOMATED 203 10^3/uL (150-450); RED BLOOD COUNT 4.18 10^6/uL (4.00-5.40); WHITE BLOOD COUNT 6.2 10^3/uL (4.0-10.0)
== END ==
LOC: SKLAB7 14:22
PROVIDERS: ATTEND Family Medicine
DX: I50.9 Heart failure, unspecified (principal); R05 Cough; R06.02 Shortness of breath

== ENCOUNTER → 2018-07-22 | Outpatient (REF) | payer MEDICAID, MEDICARE, OTHER ==
[2018-07-22 08:22] LABS: BLOOD UREA NITROGEN 29 MG/DL (7-18); CARBON DIOXIDE LEVEL 33 MEQ/L (21-32); CHLORIDE LEVEL 98 MEQ/L (98-107); CREATININE FOR GFR 0.89 MG/DL (0.55-1.30); GLOMERULAR FILTRATION RATE > 60.0 (>32); GLUCOSE, FASTING 89 MG/DL (70-100); NT-PRO BNP 1987 PG/ML (<450); POTASSIUM SERUM 3.4 MEQ/L (3.5-5.1); SODIUM LEVEL 138 MEQ/L (136-145)
== END ==
LOC: SKLAB7 08:00
PROVIDERS: ATTEND Family Medicine
DX: I50.9 Heart failure, unspecified (principal)

== ENCOUNTER → 2018-08-05 | Outpatient (REF) | payer MEDICARE, OTHER, MEDICAID ==
[2018-08-05 08:53] LABS: BLOOD UREA NITROGEN 25 MG/DL (7-18); CALCIUM LEVEL 8.8 MG/DL (8.8-10.2); CARBON DIOXIDE LEVEL 32 MEQ/L (21-32); CHLORIDE LEVEL 98 MEQ/L (98-107); CREATININE FOR GFR 0.86 MG/DL (0.55-1.30); GLOMERULAR FILTRATION RATE > 60.0 (>32); GLUCOSE, FASTING 109 MG/DL (70-100); POTASSIUM SERUM 3.7 MEQ/L (3.5-5.1); SODIUM LEVEL 139 MEQ/L (136-145)
== END ==
LOC: SKLAB7 08:00
PROVIDERS: ATTEND Family Medicine
DX: I50.9 Heart failure, unspecified (principal)

== ENCOUNTER → 2018-08-19 | Outpatient (REF) | payer MEDICARE, OTHER, MEDICAID ==
[2018-08-19 08:37] LABS: CREATININE FOR GFR 0.98 MG/DL (0.55-1.30)
[2018-08-19 08:38] LABS: CALCIUM LEVEL 9.1 MG/DL (8.8-10.2); GLOMERULAR FILTRATION RATE 57.7 (>32); POTASSIUM SERUM 3.8 MEQ/L (3.5-5.1)
== END ==
LOC: SKLAB7 07:00
PROVIDERS: ATTEND Family Medicine
DX: I50.9 Heart failure, unspecified (principal)

== ENCOUNTER → 2018-09-30 | Outpatient (REF) | payer MEDICARE, OTHER, MEDICAID | LOC: SKLAB7 08:41 | PROVIDERS: ATTEND Family Medicine | DX: I48.91 Unspecified atrial fibrillation (principal); Z51.81 Encounter for therapeutic drug level monitoring; Z79.899 Other long term (current) drug therapy ==

== ENCOUNTER → 2018-10-20 | Outpatient (REF) | payer MEDICARE, OTHER, MEDICAID ==
[~2018-10-20] MED LIST changes: -ASPI1TAB PO; +ASPI81TA26 PO; -DILT180C74 PO; +DILT1CAP3 PO; +HYDR-2541 PO; -HYDR25TAB PO; +LANO0.12 PO; -LANO0.1211 PO; -PRAD150C PO; +PRAD150C6 PO; +SERT-141 PO; -SERT50TA PO
== END ==
LOC: SKLAB7 08:36
PROVIDERS: ATTEND Family Medicine
DX: R05 Cough (principal); Z20.828 Contact with and (suspected) exposure to other viral communicable diseases

== ENCOUNTER → 2018-11-25 | Outpatient (REF) | payer MEDICARE, OTHER, MEDICAID ==
[2018-11-25 07:59] LABS: BASO # 0.1 10^3/uL (0.0-0.2); BASO % 0.6 % (0.0-1.0); EOS # 0.3 10^3/uL (0.0-0.50); EOS % 3.3 % (0.0-3.0); HEMATOCRIT 39.4 % (36.0-47.0); HEMOGLOBIN 12.8 g/dl (12.0-15.5); LYMPH # 1.8 10^3/uL (1.5-4.5); LYMPH % 20.2 % (24.0-44.0); MEAN CORPUSCULAR HEMOGLOBIN 31.6 pg (27.0-33.0); MEAN CORPUSCULAR HGB CONC 32.5 g/dl (32.0-36.5); MEAN CORPUSCULAR VOLUME 97.3 fl (80.0-96.0); MONO # 0.8 10^3/uL (0.0-0.8); MONO % 9.5 % (0.0-5.0); NEUTROPHILS # 5.9 10^3/uL (1.8-7.7); NEUTROPHILS % 66.2 % (36.0-66.0); PLATELET COUNT, AUTOMATED 205 10^3/uL (150-450); RED BLOOD COUNT 4.05 10^6/uL (4.00-5.40); WHITE BLOOD COUNT 8.9 10^3/uL (4.0-10.0)
== END ==
LOC: SKLAB7 08:19
PROVIDERS: ATTEND Family Medicine
DX: I48.91 Unspecified atrial fibrillation (principal); I10 Essential (primary) hypertension

== ENCOUNTER → 2018-12-13 | Outpatient (REF) | payer MEDICARE, OTHER, MEDICAID ==
--- NOTE | 2018-12-13 13:58 | REP ---
REASON: History of COPD with exacerbation. COMPARISON: Multiple, the latest 07/14/2018, also portable. CHEST PORTABLE: FINDINGS: The technique utilized in obtaining the radiograph has magnified the cardiac silhouette and accentuated the interstitial markings. The superior mediastinal structures are midline. The cardiac silhouette is unremarkable in size, shape, and position. The diaphragmatic surfaces of the lungs are regular, and the costophrenic angles are clear. The pulmonary beach are clear. The imaged osseous structures are intact. IMPRESSION: There is no acute cardiopulmonary disease. No change from the prior exam. Electronically Signed by Luc Rodriguez DO 12/13/2018 02:00 P
== END ==
LOC: SKLAB7 11:32
PROVIDERS: ATTEND Family Medicine
DX: J44.1 Chronic obstructive pulmonary disease with (acute) exacerbation (principal)

== ENCOUNTER → 2018-12-19 | Outpatient (REF) | payer MEDICARE, OTHER, MEDICAID | LOC: SKLAB7 12:38 | PROVIDERS: ATTEND Family Medicine | DX: R05 Cough (principal) ==

== ENCOUNTER → 2019-02-09 | Outpatient (REF) | payer MEDICARE, OTHER, MEDICAID ==
--- NOTE | 2019-02-09 11:15 | REP ---
Clinical: Cough and COPD. Technique: PA and lateral. Comparison: 12/13/2018. Findings: Lateral view best demonstrates right middle lobe and right lower lobe infiltrates with possible small pleural reaction/effusion. Left hemithorax is clear. The cardiac silhouette is stable and mild cardiomegaly is again suggested. No pneumothorax. Skeletal structures are intact. Impression: Right middle lobe/right lower lobe infiltrates and small associated pleural effusion/reaction. Electronically Signed by Brennan Logan MD 02/09/2019 11:06 A
[2019-02-09 13:22] LABS: CALCIUM LEVEL 9.1 MG/DL (8.8-10.2); CREATININE FOR GFR 1.07 MG/DL (0.55-1.30); GLOMERULAR FILTRATION RATE 52.1 (>32); POTASSIUM SERUM 3.2 MEQ/L (3.5-5.1)
== END ==
LOC: SKLAB7 10:39
PROVIDERS: ATTEND Family Medicine
DX: I50.9 Heart failure, unspecified (principal); R05 Cough; J44.9 Chronic obstructive pulmonary disease, unspecified

== ENCOUNTER → 2019-02-14 | Outpatient (REF) | payer MEDICARE, OTHER, MEDICAID ==
[2019-02-14 06:47] LABS: CALCIUM LEVEL 9.1 MG/DL (8.8-10.2); CREATININE FOR GFR 1.07 MG/DL (0.55-1.30); GLOMERULAR FILTRATION RATE 52.1 (>32)
== END ==
LOC: SKLAB7 07:00
PROVIDERS: ATTEND Family Medicine
DX: I50.9 Heart failure, unspecified (principal)

== ENCOUNTER → 2019-03-03 | Outpatient (REF) | payer MEDICARE, OTHER, MEDICAID ==
[2019-03-03 08:39] LABS: BLOOD UREA NITROGEN 26 MG/DL (7-18); CALCIUM LEVEL 8.4 MG/DL (8.8-10.2); CARBON DIOXIDE LEVEL 31 MEQ/L (21-32); CHLORIDE LEVEL 104 MEQ/L (98-107); CREATININE FOR GFR 0.86 MG/DL (0.55-1.30); GLOMERULAR FILTRATION RATE > 60.0 (>32); GLUCOSE, FASTING 79 MG/DL (70-100); POTASSIUM SERUM 3.6 MEQ/L (3.5-5.1); SODIUM LEVEL 142 MEQ/L (136-145)
== END ==
LOC: SKLAB7 07:00
PROVIDERS: ATTEND Family Medicine
DX: I50.9 Heart failure, unspecified (principal)

== ENCOUNTER → 2019-03-17 | Outpatient (REF) | payer MEDICARE, OTHER, MEDICAID ==
[~2019-03-17] MED LIST changes: +ACET1TAB55 PO; +ALBU83IN NEB; +BENZ200C70 PO; +BREO1INH INH; +CARD240C5 PO; -DIGO0.12 PO; +DIGO0.123 PO; +DILT30TA PO; +ENEMENE PR; +FURO40TA2 PO; -LORA0.5T11 PO; +LORA0.5T5 PO; +METO1TAB87 PO; +MILKSUS3 PO; +MULTCAP PO; +POTA10TA16 PO; +PRED10TA2 PO; +XARE15TA PO
[2019-03-17 09:23] LABS: CREATININE FOR GFR 1.05 MG/DL (0.55-1.30); GLOMERULAR FILTRATION RATE 53.3 (>32); POTASSIUM SERUM 3.7 MEQ/L (3.5-5.1)
== END ==
LOC: SKLAB7 14:30
PROVIDERS: ATTEND Family Medicine
DX: I50.9 Heart failure, unspecified (principal)

== ENCOUNTER → 2019-03-31 | Outpatient (REF) | payer MEDICARE, OTHER, MEDICAID | LOC: SKLAB7 07:00 | PROVIDERS: ATTEND Family Medicine | DX: I48.91 Unspecified atrial fibrillation (principal) ==

== ENCOUNTER → 2019-06-11 | Outpatient (CLI) | payer MEDICARE, OTHER, MEDICAID ==
[~2019-06-11] MED LIST changes: -ACET1TAB55 PO; -ALBU83IN NEB; -BENZ200C70 PO; -BREO1INH INH; -CARD240C5 PO; +DIGO0.12 PO; -DIGO0.123 PO; -DILT30TA PO; -ENEMENE PR; -FURO40TA2 PO; +LORA0.5T11 PO; -LORA0.5T5 PO; -METO1TAB87 PO; -MILKSUS3 PO; -MULTCAP PO; -POTA10TA16 PO; -PRED10TA2 PO; -XARE15TA PO
--- NOTE | 2019-06-11 18:15 | REP ---
Clinical: Cough. Comparison: 02/09/2019. Findings: Right lower lobe opacity suggests moderate consolidation and moderate effusion. Left hemithorax is relatively clear. Cardiomegaly suggested. No pneumothorax. Skeletal structures stable. Impression: Moderate right pleural effusion and right lower lobe consolidation Electronically Signed by Brennan Logan MD 06/11/2019 06:07 P
== END ==
LOC: SKLAB7 17:06
PROVIDERS: ATTEND Family Medicine
DX: J18.1 Lobar pneumonia, unspecified organism (principal); J90 Pleural effusion, not elsewhere classified

== ENCOUNTER 2019-06-25 23:02 | Inpatient (IN) | payer MEDICARE, OTHER, MEDICAID ==
[~2019-06-25] VITALS: Ht 152.4 cm; Wt 77.0 kg
[~2019-06-25 23:02] MED LIST changes: -ACET1TAB55 PO; -ALBU83IN NEB; -BENZ200C70 PO; -BREO1INH INH; -CARD240C5 PO; -ENEMENE PR; -FURO40TA2 PO; -MILKSUS3 PO; -MULTCAP PO; -POTA10TA16 PO; -PRED10TA2 PO
[2019-06-25] MEDS ORDERED: NS 500 ML IV ONE (23:30)
[2019-06-26] VITALS (20 sets, daily range): BP systolic 86–126; BP diastolic 47–69
[2019-06-26 00:09] LABS: ALBUMIN 2.5 GM/DL (3.2-5.2); ALT/SGPT 21 U/L (12-78); BILIRUBIN,TOTAL 0.7 MG/DL (0.2-1.0); BLOOD UREA NITROGEN 58 MG/DL (7-18); CALCIUM LEVEL 8.8 MG/DL (8.8-10.2); CARBON DIOXIDE LEVEL 28 MEQ/L (21-32); CHLORIDE LEVEL 99 MEQ/L (98-107); CK-MB VALUE MASS < 1.0 NG/ML (<3.6); CPK CREATINE PHOSPHOKINASE 18 U/L (26-192); CREATININE FOR GFR 2.23 MG/DL (0.55-1.30); GLOMERULAR FILTRATION RATE 22.3 (>32); GLUCOSE, FASTING 175 MG/DL (70-100); MB/CK RELATIVE INDEX 5.56 (< OR =4); POTASSIUM SERUM 4.6 MEQ/L (3.5-5.1); SODIUM LEVEL 137 MEQ/L (136-145); TOTAL PROTEIN 6.1 GM/DL (6.4-8.2); TROPONIN I < 0.02 NG/ML (< 0.10)
--- NOTE | 2019-06-26 00:09 | REPVR ---
PROCEDURE INFORMATION: Exam: CT Head Without Contrast Exam date and time: 06/25/2019 11:34 PM Age: 83 years old Clinical history: Injury or trauma; Fall; Initial encounter; Blunt trauma (contusions or hematomas); Additional info: Fall/trauma TECHNIQUE: Imaging protocol: Computed tomography of the head without contrast. Radiation optimization: All CT scans at this facility use at least one of these dose optimization techniques: automated exposure control; mA and/or kV adjustment per patient size (includes targeted exams where dose is matched to clinical indication); or iterative reconstruction. COMPARISON: CT Head without contrast 06/05/2018 9:24 AM FINDINGS: Brain: There is diffuse cortical atrophy and hypoattenuation of the deep white matter. No acute hemorrhage. Ventricles: Unremarkable. No ventriculomegaly. Bones/joints: Unremarkable. No acute fracture. Sinuses: Unremarkable as visualized. No acute sinusitis. Mastoid air cells: Unremarkable as visualized. No mastoid effusion. Soft tissues: Unremarkable. IMPRESSION: No acute intracranial process. Diffuse cortical atrophy and chronic deep white matter small vessel disease. Electronically signed by: Jarred Short On 06/26/2019 00:08:53 AM
--- NOTE | 2019-06-26 00:11 | REPVR ---
PROCEDURE INFORMATION: Exam: CT Cervical Spine Without Contrast Exam date and time: 06/25/2019 11:34 PM Age: 83 years old Clinical history: Injury or trauma; Fall; Initial encounter; Blunt trauma; Additional info: Fall/trauma TECHNIQUE: Imaging protocol: Computed tomography images of the cervical spine without contrast. Radiation optimization: All CT scans at this facility use at least one of these dose optimization techniques: automated exposure control; mA and/or kV adjustment per patient size (includes targeted exams where dose is matched to clinical indication); or iterative reconstruction. COMPARISON: CT Spine,cervical w/o contrast 06/05/2018 9:24 AM FINDINGS: Vertebrae: There is spondyloarthropathy. There is no acute fracture or dislocation. Discs/Spinal canal/Neural foramina: There are degenerative disc changes. Soft tissues: Unremarkable. Lungs: The lung apices are without an acute process or mass. IMPRESSION: No acute process or fracture. There is spondyloarthropathy and degenerative disc disease. Electronically signed by: Jarred Short On 06/26/2019 00:11:28 AM
[2019-06-26] MEDS ORDERED: METOPROLOL 5 MG/5 ML VIAL IV STA (00:12)
[2019-06-26 00:14] LABS: MEAN CORPUSCULAR HEMOGLOBIN 30.4 pg (27.0-33.0); MEAN CORPUSCULAR HGB CONC 32.5 g/dl (32.0-36.5); MEAN CORPUSCULAR VOLUME 93.7 fl (80.0-96.0); PLATELET COUNT, AUTOMATED 106 10^3/uL (150-450); RED BLOOD COUNT 4.27 10^6/uL (4.00-5.40); WHITE BLOOD COUNT 21.3 10^3/uL (4.0-10.0)
--- NOTE | 2019-06-26 00:17 | REPVR ---
PROCEDURE INFORMATION: Exam: CT Chest Without Contrast Exam date and time: 06/25/2019 11:34 PM Age: 83 years old Clinical history: Injury or trauma; Fall; Initial encounter; Blunt trauma (contusions or hematomas); Additional info: Fall/trauma TECHNIQUE: Imaging protocol: Computed tomography of the chest without contrast. 3D rendering: MIP reconstructed images were created and reviewed. Radiation optimization: All CT scans at this facility use at least one of these dose optimization techniques: automated exposure control; mA and/or kV adjustment per patient size (includes targeted exams where dose is matched to clinical indication); or iterative reconstruction. COMPARISON: CT Chest without contrast 09/07/2014 9:59 PM FINDINGS: Lungs: There is atelectasis involving the medial basilar segment of the right upper lobe No masses. Pleural space: No pneumothorax. No pleural effusion. Heart: No cardiomegaly. No pericardial effusion. Aorta: No aortic aneurysm. Lymph nodes: No enlarged lymph nodes. Bones/joints: No acute fracture or dislocation. Soft tissues: Unremarkable. IMPRESSION: 1. There is discoid atelectasis involving the right upper lobe medial basal segment. Consider clinical correlation to exclude superimposed infiltrate. 2. There is otherwise no evidence of thoracic trauma or an acute cardiopulmonary process. Electronically signed by: Jarred hSort On 06/26/2019 00:17:00 AM
[2019-06-26] MEDS ORDERED: cefTRIAXone SOD 1 GM in D5W MINI-BAG PLUS 50 ML IV ONE (00:30)
[2019-06-26] MEDS ORDERED: NS 500 ML IV ONE ×2 (00:30→05:00)
--- NOTE | 2019-06-26 00:35 | HPEPDOC ---
[facility] [place] Medical History & Physical Date of Admission Jun 26, 2019 Date of Service: Jun 26, 2019 Primary Care Physician: Cl Sorto M.D. Attending Physician: Preston Flor MD History and Physical TIME OF SERVICE: 1250 CHIEF COMPLAINT: Confused HISTORY OF PRESENT ILLNESS: This is an 83-year-old female was sent from [facility] because she was noted to be confused; she had a fall twice yesterday and at around 2100, she was noted to be confused and rambling. Currently, the patient is complaining of feeling very tired, remembers falling and hitting her head, but she denies having any pain. REVIEW OF SYSTEMS: 12 point review of systems negative except as listed in HPI PAST MEDICAL/ SURGICAL HISTORY: Dementia Depression Chronic atrial fibrillation Chronic diastolic congestive heart failure Chronic HTN Osteoarthritis GERD COPD History of B12 deficiency Status post cataract surgery SOCIAL HISTORY: Lives at [facility] FAMILY HISTORY: n/a ALLERGIES: Please see below HOME MEDICATIONS: Please see below. PHYSICAL EXAMINATION: VITAL SIGNS: Please see below GEN: well nourished / well developed/ appears ill INTEGUMENT: not flushed/ not jaundice HEENT: normocephalic / atraumatic / lips acyanotic /mucus membranes dry CVS: RRR/NMRG/ radial and dorsalis pedis pulses intact LUNGS: lungs are clear to auscultation bilaterally on room air ABDOMEN: bowel sounds are present / the abdomen is tympanic on percussion, soft & not tender with palpation NEURO: CN 2-12 are grossly intact / speech is not dysarthric PSYCH: keeps falling asleep during the history, but she is alert and oriented to person place and time & and is able to name the city's where several of her family members live LABORATORY DATA: See below. IMAGING: CT head " IMPRESSION: No acute intracranial process. Diffuse cortical atrophy and chronic deep white matter small vessel disease. " CT cervical spine "IMPRESSION: No acute process or fracture. There is spondyloarthropathy and degenerative disc disease. " CT chest " IMPRESSION: 1. There is discoid atelectasis involving the right upper lobe medial basal segment. Consider clinical correlation to exclude superimposed infiltrate. 2. There is otherwise no evidence of thoracic trauma or an acute cardiopulmonary process." MICROBIOLOGY: Please see below. ASSESSMENT: Ms. Moe is an 83-year-old with a past with history of atrial fibrillation, chronic hypertension, chronic diastolic congestive heart failure, depression, dementia, & COPD who will be admitted for management of Sepsis, rapid A. fib likely secondary to pneumonia and SHERRY. PLAN: 1. Atrial Fibrillation With RVR Rapid A. fib was likely triggered by pneumonia Echo Report from 2015 was reviewed. There were no mentions of mitral v alvulopathy Trop, TSH, K, Ca are within normal limits. CT is negative for PE Plan: ICU / telemetry / her rate is not better controlled despite receiving metoprolol & her BP is trending down therefore will give a loading dose of digoxin /resume home doses of digoxin and Cardizem in the morning / dc ASA and start Heparin drip for AC (can't start a NOAC now bc of impaired renal function) / f/u BNP 2. Sepsis secondary to Community acquired right sided Pneumonia She appears acutely ill/toxic SIRS criteria include Temp >101 / HR >90 / WBC >12 She also has nondiabetic hyperglycemia. Per Sepsis protocol she received Rocephin & IVF in the ER; the lactic acid is within normal limits CURB 65 score to determine if pt should be admitted = 3 points = severe risk = 14% 30 day mortality appropriate for in pt admission w possible ICU Shorr Score to identify pts at risk for MRSA PNA = medium risk for MRSA Plan: continuous pulse ox & supplemental O2/ f/u sputum cx, MRSA, legionella & blood cx / continue with ceftriaxone and add azithromycin and vancomycin / IVF / Tessalon pearls / Acetaminophen PRN for fever / target MAP 65 to 70 / f/u Is and Os with target UOP of at least 0.5 ml/kg/H / target serum glucose 140-180 while acutely ill / code status is DNR, DNI 3. Multifactorial encephalopathy Likely 2/2 Pneumonia and hypoperfusion of the brain in the setting of rapid A FIB She also has pre-existing dementia, which puts her at risk for delirium when she has an acute infection Plan: Frequent neuro checks / hold famotidine, lorazepam, Seroquel 4. SHERRY Likely due to prerenal azotemia (dehydration) Baseline Cr 1.05 --> current Cr 2.23 UA did not show hyaline casts CK was within normal limits Plan: Is/Os, / f/u ulytes for FENa or FEUrea, IVF / if renal function does not improve, the daytime team may consider ordering a renal ultrasound 5. Asymptomatic UTI The patient denied having abdominal pain and was not tender with palpation of the abdomen. UA was reviewed Plan: Follow up urine culture/is ready and antibiotics for pneumonia, which would cover any organisms growing in her bladder 6. Chronic diastolic congestive heart failure 2/2 Chronic HTN She is clinically euvolemic. Plan: will resume Diltia some, but hold Lasix because of the SHERRY and her blood pressure trending downwards 7. COPD Stable. She is not wheezing. Plan: Continue home meds which include DuoNeb's 3 times a day, Breo Ellipta, with albuterol when necessary and prednisone 8. Depression. Plan: Continue sertraline She doesn't need DVT prophylaxis because we'll start Xarelto for A. fib. Disposition will likely return back to [facility] after more than 2 midnight stay Vital Signs Vital Signs Date Time Temp Pulse Resp B/P (MAP) Pulse Ox O2 Delivery O2 Flow Rate FiO2 06/26/19 00:16 128 142/58 Laboratory Data Labs 24H Laboratory Tests 2 06/25/19 23:31: Nucleated Red Blood Cells % (auto) 0.0, Anion Gap 10, Glomerular Filtration Rate 22.3L, Calcium Level 8.8, Total Bilirubin 0.7, Aspartate Amino Transf (AST/SGOT) 16, Alanine Aminotransferase (ALT/SGPT) 21, Alkaline Phosphatase 108, Total Creatine Kinase 18L, Creatine Kinase MB < 1.0, Creatine Kinase MB Relative Index 5.56H, Troponin I < 0.02, Total Protein 6.1L, Albumin 2.5L, Albumin/Globulin Ratio 0.69L, Thyroid Stimulating Hormone (TSH) 1.440 06/25/19 23:32: Lactic Acid Level 2.0 06/25/19 23:50: Urine Color YELLOW, Urine Appearance HAZY, Urine pH 5.0, Urine Specific [place] 1.010, Urine Protein 1+H, Urine Glucose (UA) NEGATIVE, Urine Ketones NEGATIVE, Urine Blood 2+H, Urine Nitrite POSITIVEH, Urine Bilirubin NEGATIVE, Urine Urobilinogen 0.2, Urine Leukocyte Esterase 3+H, Urine WBC (Auto) 139H, Urine RBC (Auto) 29H, Urine Hyaline Casts (Auto) 0, Urine Bacteria (Auto) 1+H, Urine Squamous Epithelial Cells 0, Urine Sperm (Auto) CBC/BMP Laboratory Tests 06/25/19 23:31 Microbiology Microbiology 06/25/19 Urine Culture, Received Pending 06/25/19 Blood Culture, Received Pending Home Medications Scheduled Aspirin (Aspirin EC) 81 Mg Tab, 81 MG PO DAILY Digoxin (Digoxin) 125 Mcg Tablet, 125 MCG PO Q2D Diltiazem Hcl (Cardizem Cd) 240 Mg Cap.er.24h, 240 MG PO DAILY Famotidine (Famotidine) 20 Mg Tab, 20 MG PO DAILY Fluticasone/Vilanterol (Breo Ellipta 100-25 Mcg INH) 1 Each Blst.w.dev, 1 PUFF INH DAILY Furosemide (Furosemide) 80 Mg Tab, 80 MG PO DAILY Furosemide (Furosemide) 40 Mg Tablet, 40 MG PO DAILY 1400 Ipratropium/Albuterol Sulfate (Iprat-Albut 0.5-3(2.5) mg/3 ml) 1 Shayna Shayna, 1 VIAL NEB QID Lorazepam (Lorazepam) 0.5 Mg Tab, 0.5 MG PO BID Multivitamin (Multivitamins) 1 Each Capsule, 1 CAP PO DAILY Potassium Chloride (Potassium Chloride) 10 Meq Tab.er.prt, 40 MEQ PO DAILY Prednisone (Prednisone) 10 Mg Tablet, 10 MG PO DAILY Quetiapine Fumarate (Seroquel) 25 Mg Tab, 12.5 MG PO QHS Sertraline Hcl (Zoloft) 100 Mg Tab, 150 MG PO DAILY Scheduled PRN Acetaminophen (Feverall) 650 Mg Sup, 650 MG IN Q4H PRN for PAIN / FEVER Acetaminophen (Acetaminophen) 325 Mg Tablet, 650 MG PO Q4H PRN for PAIN / FEVER Albuterol Sulf (Albuterol Sulfate) 2.5 Mg/3 Ml Vial.neb, 1 VIAL NEB Q4H PRN for SOB/WHEEZING Benzonatate (Benzonatate) 200 Mg Capsule, 200 MG PO Q6H PRN for COUGH Bisacodyl (Dulcolax) 10 Mg Sup, 10 MG IN DAILY PRN for CONSTIPATION Guaifenesin (Adult Wal-Tussin) 100 Mg/5 Ml Syp, 10 ML PO Q6H PRN for COUGH Magnesium Hydroxide (Milk of Magnesia) 400 Mg/5 Ml Oral.susp, 10 ML PO DAILY PRN for CONSTIPATION Simethicone (Simethicone) 80 Mg Chew, 40 MG PO QID PRN for GAS PAIN Sodium Phosphate,Estill-Dibasic (Enema) 133 Ml Enema, 1 DEBBIE IN DAILY PRN for CONSTIPATION Allergies Coded Allergies: ciprofloxacin (Verified Allergy, Unknown, UNKNOWN, 06/25/19) haloperidol (Verified Allergy, Unknown, UNKNOWN, 06/25/19) propoxyphene (Verified Allergy, Unknown, UNKNOWN, 06/25/19) A-FIB/CHADSVASC A-FIB History Current/History of A-Fib/PAF?: Yes Current PO Anticoag Therapy: Yes Age/Risk Factor Scoring CHADSVASC: CHADSVASC Response (Comments) Value Age Risk Factor Age >/= 75 years old 2 Gender Risk Factor Female 1 Hx of CHF Yes 1 Hx of HTN Yes 1 Hx of Stroke/TIA/or VTE No 0 Hx of Diabetes No 0 Total 5 BRAIN TY MD Jun 26, 2019 00:35
[2019-06-26 00:39] LABS: LYMPHOCYTES 3 % (16-44); NEUTROPHILS 93 % (28-66); PLATELET ESTIMATE NORMAL (NORMAL)
[2019-06-26] MEDS ORDERED: MOM 30ML SUSPENSION UDC PO PRN (00:45)
[2019-06-26] MEDS ORDERED: MAALOX 30 ML SUSP *UDC PO PRN (00:45)
[2019-06-26 01:13] LABS: MAGNESIUM LEVEL 2.5 MG/DL (1.8-2.4); PHOSPHORUS LEVEL 3.5 MG/DL (2.5-4.9)
[2019-06-26] MEDS ORDERED: ALBU83IN NEB (02:05)
[2019-06-26] MEDS ORDERED: DIGO0.123 PO (02:05)
[2019-06-26] MEDS ORDERED: BENZ200C70 PO (02:05)
[2019-06-26] MEDS ORDERED: POTA10TA16 PO (02:05)
[2019-06-26] MEDS ORDERED: PRED10TA2 PO (02:05)
[2019-06-26] MEDS ORDERED: ACET1TAB55 PO (02:05)
[2019-06-26] MEDS ORDERED: MULTCAP PO (02:05)
[2019-06-26] MEDS ORDERED: ENEMENE PR (02:05)
[2019-06-26] MEDS ORDERED: FURO40TA2 PO (02:05)
[2019-06-26] MEDS ORDERED: CARD240C5 PO (02:05)
[2019-06-26] MEDS ORDERED: BREO1INH INH (02:05)
[2019-06-26] MEDS ORDERED: MILKSUS3 PO (02:05)
[2019-06-26] MEDS: ACETAMINOPHEN TAB 650MG DOSE (2X325MG) PO PRN ×2 (02:44→20:05)
[2019-06-26] MEDS ORDERED: VANCOMYCIN HCL 1,000 MG, VIAL MATE ADAPTER 1 EACH in D5W 250 ML IV SCH (02:45)
[2019-06-26] MEDS ORDERED: DIGOXIN INJ 0.5 MG/2 ML AMP (J1160) IV ONE (02:45)
[2019-06-26] MEDS ORDERED: BISACODYL 10 MG SUPP PR PRN (03:00)
[2019-06-26] MEDS ORDERED: ALBUTEROL SULFATE 2.5 MG/0.5 ML INH NEB SOLN NEB PRN (03:00)
[2019-06-26 03:11] LABS: NT-PRO BNP 3506 PG/ML (<450)
[2019-06-26] MEDS: NS 1,000 ML IV SCH ×2 (03:27→20:06)
[2019-06-26] MEDS ORDERED: VANCOMYCIN HCL 1,000 MG, VIAL MATE ADAPTER 1 EACH in D5W 250 ML IV ONE (03:30)
[2019-06-26] MEDS ORDERED: HEPARIN DRIP 25,000 UNITS in IV 1 EA IV SCH (04:42)
[2019-06-26] MEDS ORDERED: HEPARIN SOD (PORCINE) 5000 UNITS/ML VIAL IV PRN (04:45)
[2019-06-26] MEDS ORDERED: VANCOMYCIN INTERMITTENT/PULSE DOSING BY CLINICAL PHARMACIST PER DOSING PROTOCOL XX SCH (04:45)
[2019-06-26] MEDS ORDERED: AZITHROMYCIN INJ 500 MG, VIAL MATE ADAPTER 1 EACH in D5W 250 ML IV SCH (05:00)
[2019-06-26 05:06] LABS: HEMOGLOBIN 11.7 g/dl (12.0-15.5); MEAN CORPUSCULAR HEMOGLOBIN 30.3 pg (27.0-33.0); MEAN CORPUSCULAR HGB CONC 32.5 g/dl (32.0-36.5); MEAN CORPUSCULAR VOLUME 93.3 fl (80.0-96.0); RED BLOOD COUNT 3.86 10^6/uL (4.00-5.40)
[2019-06-26 05:22] LABS: PLATELET COUNT, AUTOMATED 91 10^3/uL (150-450)
[2019-06-26 05:26] LABS: CALCIUM LEVEL 8.5 MG/DL (8.8-10.2); CREATININE FOR GFR 2.02 MG/DL (0.55-1.30); MAGNESIUM LEVEL 2.2 MG/DL (1.8-2.4); POTASSIUM SERUM 4.6 MEQ/L (3.5-5.1)
[2019-06-26 06:13] LABS: INR 1.37; PROTHROMBIN TIME 16.6 SECONDS (11.8-14.0)
[2019-06-26 06:14] LABS: PARTIAL THROMBOPLASTIN TIME 34.3 SECONDS (25.0-38.4)
--- NOTE | 2019-06-26 06:41 | PHACANCOPD ---
PHARMACY VANCOMYCIN DOSING Pt Demographics Demographics Patient Age:83 , Weight:81.300 , Gender: female Adjusted Body Weight Date: 06/26/19, Adjusted Body Weight: [60.2] Kg Vancomycin Vancomycin indication: CAP Vancomycin Target Ranges: 15-20 mcg/ml Vancomycin Load Y/N: No Load Dose Date Time Vancomycin Load Dose: Date: Time: Vancomycin Dose Date: 06/26/19. Current Vancomycin Dose: [1GM@0330] Intermittent Dosing?: Yes Labs Micro Microbiology 06/26/19 Blood Culture, Received Pending 06/25/19 Urine Culture, Received Pending 06/25/19 Blood Culture, Received Pending Creatinine Clearance Date:06/26/19. Creatinine Clearance: [~16]. Assessment and Plan Maintaining Current Dose?: Yes Reason for dose change: No Dose Change Pharmacist Note Pharmacist Note Date: 06/26/19. Pharmacist note:[id number] ,ASYMPTOMATIC UTI,CAP/SEPSIS,SCR=2.23,CRCL=16,MRSA PCR ORDERED,TX WITH AZITHROMYCIN 500MG IV Q24H,CEFTRIAXONE1 GM Q12H,AND PHARMACY DOSED VANCOMYCIN. UNTIL RENAL FUNCTION IMPPROVES, WE WILL DOSE VANCOMYCIN INTERMITTENTLY WITH DAILY RANDOM LEVELS TO ASSESS THERAPEUTIC LEVELS. Vancomycin 1 gm administered in ED@0330, then will draw random 06/27@0500.,and will appraise random level and MRSA PCR-will continue to follow and will make changes as needed MARII FARAH PHARMACY Jun 26, 2019 06:41
[2019-06-26] MEDS: IPRATROPIUM 0.5MG/ALBUTEROL 2.5MG INH SOL UD 3ML (DUONEB)(J7620) NEB SCH ×4 (07:47→20:26)
[2019-06-26] MEDS: SERTRALINE HCL 50 MG TAB PO SCH (08:27)
[2019-06-26] MEDS: POTASSIUM CHLORIDE 10 MEQ SR TABLET PO SCH (08:28)
[2019-06-26] MEDS: DOCUSATE SODIUM 100 MG CAP PO SCH ×2 (08:28→20:06)
[2019-06-26] MEDS: predniSONE 10 MG TAB PO SCH (08:28)
[2019-06-26] MEDS ORDERED: FUROSEMIDE 40 MG TAB PO SCH (09:00)
[2019-06-26] MEDS: ASPIRIN 81 MG ENTERIC TAB PO SCH (09:00)
[2019-06-26] MEDS ORDERED: FUROSEMIDE 80 MG TAB PO SCH (09:00)
--- NOTE | 2019-06-26 10:15 | REP ---
Portable chest x-ray: Single view. History: Pneumonia. Comparison study: June 11 2019. February 09, 2019 prior radiograph is also reviewed. Findings: An azygos lobe is again noted. Monitoring electrodes and oxygen delivery tubing is seen. Heart is mildly enlarged unchanged. There is slight blunting of the right lateral pleural angle. Right hemidiaphragm is less elevated than on the most recent prior study. No new infiltrate is seen. Pulmonary vasculature is somewhat cephalized. Impression: No infiltrate seen. Very slight pleural angle blunting on the right. Azygos lobe. Electronically Signed by Fransico Ovalle MD 06/26/2019 10:06 A
[2019-06-26] MEDS: CEFEPIME HCL 1 GM in D5W MINI-BAG PLUS 50 ML IV SCH ×2 (11:30→21:37)
[2019-06-26] MEDS ORDERED: cefTRIAXone SOD 1 GM in D5W MINI-BAG PLUS 50 ML IV SCH (12:00)
[2019-06-26] MEDS: RIVAROXABAN 15 MG TAB (XARELTO) PO SCH (17:22)
[2019-06-26] MEDS ORDERED: RIVAROXABAN 20 MG TAB (XARELTO) PO SCH (18:00)
--- NOTE | 2019-06-26 19:43 | ECGEPIP ---
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
[2019-06-26] MEDS ORDERED: ANALGESIC BALM CRM 120 GM TOP PRN (22:00)
[2019-06-27] VITALS (11 sets, daily range): BP systolic 104–149; BP diastolic 55–96
[2019-06-27 04:29] LABS: HEMATOCRIT 35.1 % (36.0-47.0); HEMOGLOBIN 11.1 g/dl (12.0-15.5); MEAN CORPUSCULAR HEMOGLOBIN 30.3 pg (27.0-33.0); MEAN CORPUSCULAR HGB CONC 31.6 g/dl (32.0-36.5); MEAN CORPUSCULAR VOLUME 95.9 fl (80.0-96.0); RED BLOOD COUNT 3.66 10^6/uL (4.00-5.40); WHITE BLOOD COUNT 13.2 10^3/uL (4.0-10.0)
[2019-06-27 04:30] LABS: PLATELET COUNT, AUTOMATED 75 10^3/uL (150-450)
[2019-06-27 04:52] LABS: CALCIUM LEVEL 8.4 MG/DL (8.8-10.2); CREATININE FOR GFR 1.6 MG/DL (0.55-1.30); GLOMERULAR FILTRATION RATE 32.8 (>32); MAGNESIUM LEVEL 2.2 MG/DL (1.8-2.4); POTASSIUM SERUM 4.2 MEQ/L (3.5-5.1); VANCOMYCIN RANDOM 9.5 UG/ML
--- NOTE | 2019-06-27 05:44 | PHACANCOPD ---
PHARMACY VANCOMYCIN DOSING Pt Demographics Demographics Patient Age:83 , Weight:81.300 , Gender: female Adjusted Body Weight Date: 06/26/19, Adjusted Body Weight: [60.2] Kg Vancomycin Vancomycin indication: CAP Vancomycin Target Ranges: 15-20 mcg/ml Vancomycin Load Y/N: No Load Dose Date Time Vancomycin Load Dose: Date: Time: Vancomycin Dose Date: 06/26/19. Current Vancomycin Dose: [1GM@0330] Intermittent Dosing?: No Labs Micro Microbiology 06/26/19 Blood Culture - Preliminary, Resulted 06/25/19 Urine Culture, Received Pending 06/25/19 Blood Culture - Preliminary, Resulted Creatinine Clearance Date:06/27/19. Creatinine Clearance: [25.2].CALCULATED Date:06/26/19. Creatinine Clearance: [~16]. Assessment and Plan Maintaining Current Dose?: No Reason for dose change: Trough too low Pharmacist Note Pharmacist Note Date: 06/27/19. Pharmacist note:MRSA PCR SCREEN -cancelled by ,random Vancomycin this AM=9.5,scr is improved-1.6 this am CRCL=25.2-Will d/c intermittent Vanco dosing and change to scheduled regimen of 750mg IV Q24H@08- will schedule trough level for tomorrow am Date: 06/26/19. Pharmacist note:[id number] ,ASYMPTOMATIC UTI,CAP/SEPSIS,SCR=2.23,CRCL=16,MRSA PCR ORDERED,TX WITH AZITHROMYCIN 500MG IV Q24H,CEFTRIAXONE1 GM Q12H,AND PHARMACY DOSED VANCOMYCIN. UNTIL RENAL FUNCTION IMPPROVES, WE WILL DOSE VANCOMYCIN INTERMITTENTLY WITH DAILY RANDOM LEVELS TO ASSESS THERAPEUTIC LEVELS. Vancomycin 1 gm administered in ED@0330, then will draw random 06/27@0500.,and will appraise random level and MRSA PCR-will continue to follow and will make changes as needed MARII FARAH PHARMACY Jun 27, 2019 05:44
[2019-06-27] MEDS: IPRATROPIUM 0.5MG/ALBUTEROL 2.5MG INH SOL UD 3ML (DUONEB)(J7620) NEB SCH ×4 (07:42→19:42)
[2019-06-27] MEDS ORDERED: VANCOMYCIN HCL 750 MG, VIAL MATE ADAPTER 1 EACH in D5W 250 ML IV SCH (08:00)
[2019-06-27] MEDS: SERTRALINE HCL 50 MG TAB PO SCH (08:25)
[2019-06-27] MEDS: POTASSIUM CHLORIDE 10 MEQ SR TABLET PO SCH (08:25)
[2019-06-27] MEDS: ASPIRIN 81 MG ENTERIC TAB PO SCH (08:25)
[2019-06-27] MEDS: predniSONE 10 MG TAB PO SCH (08:26)
[2019-06-27] MEDS: ANALGESIC BALM CRM 120 GM TOP SCH ×4 (08:26→20:03)
[2019-06-27] MEDS: DOCUSATE SODIUM 100 MG CAP PO SCH (08:26)
[2019-06-27] MEDS ORDERED: DIGOXIN 0.125 MG TAB PO SCH (09:00)
[2019-06-27] MEDS: CEFEPIME HCL 1 GM in D5W MINI-BAG PLUS 50 ML IV SCH ×2 (09:52→21:09)
[2019-06-27 15:06] LABS: ABG BASE EXCESS -1.9 (-2.0-2.0); ABG HCO3 21.6 MEQ/L (22.0-26.0); ABG O2 SATURATION 96.5 % (95.0-99.0); ABG PARTIAL PRESSURE CO2 33.1 mmHg (35.0-45.0); ABG PARTIAL PRESSURE O2 81.1 mmHg (75.0-100.0); ABG STANDARD HCO3 22.9 MEQ/L (22.0-26.0); ABG TOTAL CO2 22.6 MEQ/L (23.0-31.0); ABG pH (ARTERIAL) 7.433 UNITS (7.350-7.450)
[2019-06-27 15:31] LABS: ALBUMIN 1.9 GM/DL (3.2-5.2); ALT/SGPT 27 U/L (12-78); BLOOD UREA NITROGEN 44 MG/DL (7-18); CALCIUM LEVEL 8.9 MG/DL (8.8-10.2); CARBON DIOXIDE LEVEL 26 MEQ/L (21-32); CHLORIDE LEVEL 105 MEQ/L (98-107); CK-MB VALUE MASS < 1.0 NG/ML (<3.6); CPK CREATINE PHOSPHOKINASE 51 U/L (26-192); CREATININE FOR GFR 1.49 MG/DL (0.55-1.30); GLOMERULAR FILTRATION RATE 35.6 (>32); GLUCOSE, FASTING 139 MG/DL (70-100); MB/CK RELATIVE INDEX 1.96 (< OR =4); POTASSIUM SERUM 5.4 MEQ/L (3.5-5.1); SODIUM LEVEL 136 MEQ/L (136-145); TOTAL PROTEIN 6.8 GM/DL (6.4-8.2); TROPONIN I < 0.02 NG/ML (< 0.10)
[2019-06-27] MEDS ORDERED: SOD POLYSTYRENE SULFONATE SUSP 15 GM/60 ML UD PO ONE (16:15)
--- NOTE | 2019-06-27 18:55 | IPNPDOC ---
Date Seen The patient was seen on 06/27/19. Progress Note Addendum to progress note: Acute encephalopathy due to pneumonia / Acute delirium: -pt was found to be hallucinating, and asking for her "mommy" and "daddy", disoriented and thinking she is at home, unable to eat on her own. -repeat workup included normal arterial blood gas with no evidence of hypercarbia, respiratory acidosis, and normal ammonia level. -she is optimized on iv abx for treatment of pneumonia, and on chronic ac for afib making cva unlikely. -avoid sedatives, opioids. VS, I&O, 24H, Fishbone Vital Signs/I&O Vital Signs Date Time Temp Pulse Resp B/P (MAP) Pulse Ox O2 Delivery O2 Flow Rate FiO2 06/27/19 16:01 98.0 97 20 111/58 (75) 94 Room Air 06/26/19 08:00 1.0 I&O- Last 24 Hours up to 6 AM 06/27/19 06:00 Intake Total 4435 ml Output Total 1870 ml Balance 2565 ml Laboratory Data 24H LABS Laboratory Tests 2 06/27/19 04:10: Nucleated Red Blood Cells % (auto) 0.0, Anion Gap 6L, Glomerular Filtration Rate 32.8, Calcium Level 8.4L, Magnesium Level 2.2, Random Vancomycin Level 9.5 06/27/19 09:55: Methicillin-Resist S.aureus DNA PCR DETECTEDH 06/27/19 14:52: Anion Gap 5L, Glomerular Filtration Rate 35.6, Calcium Level 8.9, Total Bilirubin 1.0, Aspartate Amino Transf (AST/SGOT) 36, Alanine Aminotransferase (ALT/SGPT) 27, Alkaline Phosphatase 87, Ammonia 28, Total Creatine Kinase 51#, Creatine Kinase MB < 1.0, Creatine Kinase MB Relative Index 1.96, Troponin I < 0.02, Total Protein 6.8, Albumin 1.9#L, Albumin/Globulin Ratio 0.39L 06/27/19 14:55: Blood Gas Bicarbonate Standard 22.9, Arterial Blood pH 7.433, Arterial Blood Partial Pressure CO2 33.1L, Arterial Blood Partial Pressure O2 81.1, Arterial Blood Total CO2 22.6L, Arterial Blood HCO3 21.6L, Arterial Blood Base Excess - 1.9, Arterial Blood Oxygen Saturation 96.5 CBC/BMP Laboratory Tests 06/27/19 04:10 06/27/19 14:52 Microbiology Microbiology 06/26/19 Blood Culture - Preliminary, Resulted 06/25/19 Urine Culture, Received Pending 06/25/19 Blood Culture - Preliminary, Resulted ANNIE PIRES MD Jun 27, 2019 18:55
--- NOTE | 2019-06-27 19:09 | REPVR ---
PROCEDURE INFORMATION: Exam: MR Head Without Contrast Exam date and time: 06/27/2019 6:42 PM Age: 83 years old Clinical history: Altered mental status/memory loss; Confusion or disorientation; Additional info: AMS afib R/O CVA TECHNIQUE: Imaging protocol: MR of the head without contrast. COMPARISON: MRI-Brain without Contrast 10/21/2014 11:29 AM FINDINGS: Limitations: Motion artifact degrades the images. Brain: No acute infarct. Bilateral cataract surgery. Mild chronic microvascular ischemic changes. Ventricles: Normal. No ventriculomegaly. Bones/joints: Unremarkable. Soft tissues: Unremarkable. Sinuses: Normal as visualized. No acute sinusitis. Mastoid air cells: Normal as visualized. No mastoid effusion. Orbits: See Brain Finding. Other findings: No hemorrhage. IMPRESSION: No acute intracranial abnormality. Mild chronic microvascular ischemic changes. Electronically signed by: Pasquale Gibson On 06/27/2019 19:09:08 PM
[2019-06-27] MEDS: RIVAROXABAN 15 MG TAB (XARELTO) PO SCH (20:02)
[2019-06-27 23:54] LABS: CALCIUM LEVEL 7.9 MG/DL (8.8-10.2); CREATININE FOR GFR 1.38 MG/DL (0.55-1.30); GLOMERULAR FILTRATION RATE 38.9 (>32); POTASSIUM SERUM 4.5 MEQ/L (3.5-5.1)
[2019-06-28] VITALS (12 sets, daily range): BP systolic 130–150; BP diastolic 69–93
[2019-06-28] MEDS: NYSTATIN 100,000 UNITS/GM TOPICAL PWD 15 GM TOP SCH ×3 (02:12→21:09)
[2019-06-28 05:40] LABS: HEMATOCRIT 37.3 % (36.0-47.0); HEMOGLOBIN 12.3 g/dl (12.0-15.5); MEAN CORPUSCULAR HEMOGLOBIN 30.7 pg (27.0-33.0); PLATELET COUNT, AUTOMATED 121 10^3/uL (150-450); RED BLOOD COUNT 4.01 10^6/uL (4.00-5.40); WHITE BLOOD COUNT 15.8 10^3/uL (4.0-10.0)
[2019-06-28 06:12] LABS: CALCIUM LEVEL 8.6 MG/DL (8.8-10.2); CREATININE FOR GFR 1.31 MG/DL (0.55-1.30); GLOMERULAR FILTRATION RATE 41.3 (>32); MAGNESIUM LEVEL 2.3 MG/DL (1.8-2.4); POTASSIUM SERUM 3.8 MEQ/L (3.5-5.1)
[2019-06-28] MEDS: IPRATROPIUM 0.5MG/ALBUTEROL 2.5MG INH SOL UD 3ML (DUONEB)(J7620) NEB SCH ×4 (07:52→19:52)
[2019-06-28] MEDS: POTASSIUM CHLORIDE 10 MEQ SR TABLET PO SCH (08:40)
[2019-06-28] MEDS: ASPIRIN 81 MG ENTERIC TAB PO SCH (09:00)
[2019-06-28] MEDS: SERTRALINE HCL 50 MG TAB PO SCH (09:00)
[2019-06-28] MEDS: DIGOXIN 0.125 MG TAB PO SCH (09:00)
[2019-06-28] MEDS: predniSONE 10 MG TAB PO SCH (09:00)
[2019-06-28] MEDS: BREO ELLIPTA INH SCH (09:00)
--- NOTE | 2019-06-28 09:53 | IPN ---
DATE: 06/28/2019 Sheree was seen in PCU. She is agitated taking swings at the nursing staff. They are concerned she is not taking her by mouth meds today. She denies any chest pain. She does feel shortness of breath and generally "weak" VITAL SIGNS: 135/78, pulse 112, 140 atrial fib when I saw her, afebrile at 98.2. GENERAL APPEARANCE: Frail, elderly primarily mumbling. HEENT: Unremarkable. LUNGS: Essentially clear. HEART: Regular rate and rhythm tachycardiac. ABDOMEN: Soft and nontender. No peripheral edema. LABS: White count 15, hemoglobin 12, platelets 121, sodium 142, potassium 3.8, BUN 41, creatinine 1.3, potassium 5.4, blood cultures suggest gram negative rods, and blood cultures are , urine culture grew out e-coli. IMPRESSION: 1. Metabolic encephalopathy. Probably from urinary tract infections, suspected bacteremia. She does have some baseline dementia. 2. Atrial fibrillation. Rapid ventricular response. I will increase the dose of diltiazem. We will increase the Digoxin to a daily dose and get a Dig level in a few days. 3. Hyperkalemia. We will stop her supplemental potassium. 4.Atrial fibrillation. Rapid ventricular response of chronic tropin agents suggested as above. Continue her Xarelto. 5. Dementia. Continue her Zoloft 150 mg daily. 6. ? Pneumonia. No convincing evidence of this on CT or chest x-ray. 7. E-coli UTI. Change her antibiotics from cefepime to Rocephin 2 grams IV daily.
[2019-06-28] MEDS ORDERED: DIGOXIN INJ 0.5 MG/2 ML AMP (J1160) IV STA (10:17)
[2019-06-28] MEDS: cefTRIAXone SOD 2 GM in D5W MINI-BAG PLUS 50 ML IV SCH (10:26)
[2019-06-28] MEDS: ANALGESIC BALM CRM 120 GM TOP SCH ×4 (10:27→21:09)
--- NOTE | 2019-06-28 16:05 | IPN ---
DATE: 06/27/2019 This morning, the patient complains of left leg pain since she had fallen. CT of the head and cervical spine was negative. Rates this as 4 out of 10 while lying supine and worse when she tries to ambulate. Shortness of breath is improved, still with cough productive of white sputum. Afebrile. No chills at home. Telemetry shows a rate of 107 to 116. PHYSICAL EXAMINATION: VITAL SIGNS: Temperature 99, pulse 116, respiratory rate 18, blood pressure 115/72 on room air. GENERAL: Awake, alert, oriented times three. Answering questions appropriately. No icterus. No jaundice. Dry mucous membranes. HEART: S1, S2. Irregularly irregular. LUNGS: Diminished but clear to auscultation. ABDOMEN: Soft, nontender, nondistended. Positive bowel sounds. EXTREMITIES: No cyanosis, clubbing. Skin is pink in color and warm to touch. LABORATORY DATA: White count 13.2, hemoglobin 11, hematocrit 35, platelet count 75, previous platelet count of 106 on admission. IMAGING STUDIES: Chest CT on 06/25/2019 showed atelectasis right upper lobe, cannot exclude superimposed infiltrate, no evidence of thoracic trauma or acute cardiopulmonary process. CURRENT MEDICATIONS: - digoxin - vancomycin - Xarelto - cefepime - Colace - aspirin - potassium - prednisone - sertraline - Breo Ellipta - diltiazem - Combivent - albuterol - Dulcolax - acetaminophen - milk of magnesia - Mylanta ASSESSMENT AND PLAN: This is an 83-year-old female who has a history of dementia, depression, chronic atrial fibrillation, diastolic dysfunction, hypertension, osteoarthritis, reflux, chronic obstructive pulmonary disease (COPD), B12 deficiency, who presented to the emergency room with complaints of fall and confusion. CT of the head was negative. The patient is currently being treated for the following issues: 1. Atrial fibrillation with rapid ventricular response. Most likely triggered by respiratory infection. CT of the head was negative for acute bleed. She is continued on rate control medications, Cardizem and digoxin. 2. Right upper lobe pneumonia versus atelectasis. Currently on vancomycin and Zosyn with decrease in white count from 21,000 to 13,000, afebrile, still complains of cough productive of white sputum. Blood culture shows gram negative rods. Await final results. Induce sputum if possible. 3. Acute encephalopathy secondary to pneumonia and renal failure. The patient is currently on aspirin and Xarelto. Intravenous fluids. The patient has improvement in renal function currently. 4. Acute on chronic renal failure, status post IV fluids, which were discontinued. 5. Chronic obstructive pulmonary disease (COPD). On chronic prednisone. 6. Chronic diastolic failure. Currently with 2+ pitting edema of the lower extremities. Status post IV fluid resuscitation for sepsis due to pneumonia and renal failure. Monitor for now. DISPOSITION: May transfer to medical/surgical floor.
[2019-06-28] MEDS: RIVAROXABAN 15 MG TAB (XARELTO) PO SCH (17:22)
[2019-06-29] VITALS: BP 130/70
[2019-06-29 04:00] VITALS: BP 138/72
[2019-06-29 05:43] LABS: HEMATOCRIT 41.2 % (36.0-47.0); HEMOGLOBIN 12.9 g/dl (12.0-15.5); MEAN CORPUSCULAR HEMOGLOBIN 30.1 pg (27.0-33.0); MEAN CORPUSCULAR HGB CONC 31.3 g/dl (32.0-36.5); PLATELET COUNT, AUTOMATED 140 10^3/uL (150-450); RED BLOOD COUNT 4.29 10^6/uL (4.00-5.40); WHITE BLOOD COUNT 14.3 10^3/uL (4.0-10.0)
[2019-06-29 05:57] LABS: CALCIUM LEVEL 8.4 MG/DL (8.8-10.2); CREATININE FOR GFR 1.26 MG/DL (0.55-1.30); GLOMERULAR FILTRATION RATE 43.2 (>32); MAGNESIUM LEVEL 2.3 MG/DL (1.8-2.4); POTASSIUM SERUM 3.2 MEQ/L (3.5-5.1)
[2019-06-29] MEDS: BREO ELLIPTA INH SCH (07:21)
[2019-06-29] MEDS: IPRATROPIUM 0.5MG/ALBUTEROL 2.5MG INH SOL UD 3ML (DUONEB)(J7620) NEB SCH ×6 (07:23→20:20)
[2019-06-29 08:00] VITALS: BP 123/72
[2019-06-29] MEDS: SERTRALINE HCL 50 MG TAB PO SCH (08:35)
[2019-06-29] MEDS: predniSONE 10 MG TAB PO SCH (08:35)
[2019-06-29] MEDS: ASPIRIN 81 MG ENTERIC TAB PO SCH (08:35)
[2019-06-29] MEDS: DIGOXIN 0.125 MG TAB PO SCH (08:35)
[2019-06-29] MEDS: NYSTATIN 100,000 UNITS/GM TOPICAL PWD 15 GM TOP SCH ×2 (08:47→21:54)
[2019-06-29] MEDS: ANALGESIC BALM CRM 120 GM TOP SCH ×4 (08:48→21:52)
[2019-06-29] MEDS: cefTRIAXone SOD 2 GM in D5W MINI-BAG PLUS 50 ML IV SCH (10:03)
[2019-06-29] MEDS ORDERED: POTASSIUM CHLORIDE 10 MEQ SR TABLET PO ONE (10:30)
--- NOTE | 2019-06-29 11:11 | IPN ---
DATE OF SERVICE: 06/29/2019 Sheree is seen in intensive care unit (ICU). Mental status has improved. She is cooperative. No longer striking out, and she is taking her medications without difficulty. Her heart rate has come under better control with augmented doses of her medications. PHYSICAL EXAMINATION: 123/78, pulse between 100 and 110. Afebrile. General appearance: Alert. Answers questions, although she has dementia, and the answers are not appropriate. No jugular venous distention (JVD). Lungs: Decreased breath sounds, clear. Heart: Regular rate and rhythm. ABDOMEN: Soft and nontender. No peripheral edema. Moves arms and legs with equal strength. LABORATORIES: Sodium 148, potassium 3.2. White count is 14.3. Blood cultures ended up growing Escherichia (E.) coli. The same sensitivities as the urine culture. IMPRESSION: 1. Metabolic encephalopathy secondary to E. coli urinary tract infection (UTI) and bacteremia. Improved with changing to Rocephin. 2. Atrial fibrillation. Rate is controlled. She has responded to the augmented dose of diltiazem and digoxin. Digoxin level ordered for a few days from now. 3. Hypokalemia. She was hyperkalemic previously. Now, she is hypokalemic. Supplemental potassium has been ordered. 4. Hypernatremia. Need to ensure she has adequate fluid intake. 5. Dementia. Stable and behavior has improved. The patient is stable for transfer to floor.
[2019-06-29 12:00] VITALS: BP 134/71
[2019-06-29 17:15] VITALS: BP 145/84
[2019-06-29] MEDS: RIVAROXABAN 15 MG TAB (XARELTO) PO SCH (18:08)
[2019-06-29 22:00] VITALS: BP 143/86
[2019-06-30 02:00] VITALS: BP 137/87
[2019-06-30 06:07] LABS: HEMATOCRIT 41.2 % (36.0-47.0); HEMOGLOBIN 12.8 g/dl (12.0-15.5); MEAN CORPUSCULAR HEMOGLOBIN 29.8 pg (27.0-33.0); MEAN CORPUSCULAR HGB CONC 31.1 g/dl (32.0-36.5); PLATELET COUNT, AUTOMATED 196 10^3/uL (150-450); RED BLOOD COUNT 4.29 10^6/uL (4.00-5.40); WHITE BLOOD COUNT 13.8 10^3/uL (4.0-10.0)
[2019-06-30 06:34] LABS: CALCIUM LEVEL 8.7 MG/DL (8.8-10.2); CREATININE FOR GFR 1.24 MG/DL (0.55-1.30); MAGNESIUM LEVEL 2.6 MG/DL (1.8-2.4); POTASSIUM SERUM 3.4 MEQ/L (3.5-5.1)
[2019-06-30] MEDS: IPRATROPIUM 0.5MG/ALBUTEROL 2.5MG INH SOL UD 3ML (DUONEB)(J7620) NEB SCH ×4 (08:00→20:07)
[2019-06-30] MEDS: BREO ELLIPTA INH SCH (08:16)
[2019-06-30] MEDS: cefTRIAXone SOD 2 GM in D5W MINI-BAG PLUS 50 ML IV SCH (09:04)
[2019-06-30] MEDS: NYSTATIN 100,000 UNITS/GM TOPICAL PWD 15 GM TOP SCH ×2 (09:05→22:04)
[2019-06-30] MEDS: ANALGESIC BALM CRM 120 GM TOP SCH ×4 (09:05→22:05)
[2019-06-30] MEDS: SERTRALINE HCL 50 MG TAB PO SCH (09:06)
[2019-06-30] MEDS: ASPIRIN 81 MG ENTERIC TAB PO SCH (09:07)
[2019-06-30] MEDS: DIGOXIN 0.125 MG TAB PO SCH (09:07)
[2019-06-30] MEDS: predniSONE 10 MG TAB PO SCH (09:08)
[2019-06-30 10:00] VITALS: BP 142/89
[2019-06-30] MEDS: CEPHALEXIN 500 MG CAP PO SCH ×2 (10:37→22:04)
--- NOTE | 2019-06-30 10:37 | IPN ---
DATE: 06/30/2019 Sheree is about ready for discharge. She has become hypernatremic. Her oral intake has not been good. She is also on Rocephin which can lead to a bit of a salt load as well. PHYSICAL EXAMINATION: VITAL SIGNS: Stable. She is resting comfortably, alert, conversant. LUNGS: Clear. HEART: Regular rate and rhythm. ABDOMEN: Soft, nontender. Baseline mental status. LABORATORY DATA: Sodium is 152. IMPRESSION: 1. Hypernatremia. We will push free water today. If sodium is better, she could be discharged tomorrow. 2. Acute kidney injury secondary to sepsis on admission. Renal function is back to baseline. 3. Escherichia (E) coli urinary tract infection/bacteremia. Change to oral cephalexin today. The Rocephin could be contributing to the hypernatremia.
[2019-06-30 14:00] VITALS: BP 137/81
--- NOTE | 2019-06-30 14:46 | IPN ---
DATE: 06/30/2019 Nursing staff called. Sheree was having tachycardic with atrial fibrillation with rapid ventricular response. We ordered an EKG. I have reviewed it. It showed rapid atrial fibrillation, nonspecific changes are probably a digoxin effect. IMPRESSION: Atrial fibrillation with rapid ventricular response. PLAN: Can add a low-dose beta shraddha to her diltiazem 90 mg every six hours and Lanoxin. Blood pressure looks like it will hold this. We will use a very low-dose of beta shraddha in order to prevent precipitating heart block.
[2019-06-30] MEDS: METOPROLOL TART 12.5 MG PER 1/2 TAB PO SCH ×2 (14:50→22:04)
[2019-06-30] MEDS: RIVAROXABAN 15 MG TAB (XARELTO) PO SCH (17:32)
[2019-06-30 22:00] VITALS: BP 135/81
[2019-07-01 02:00] VITALS: BP 130/57
[2019-07-01] MEDS: METOPROLOL TART 12.5 MG PER 1/2 TAB PO SCH ×3 (05:34→21:47)
[2019-07-01 06:00] VITALS: BP 127/58
[2019-07-01 06:09] LABS: HEMATOCRIT 42.4 % (36.0-47.0); HEMOGLOBIN 12.7 g/dl (12.0-15.5); PLATELET COUNT, AUTOMATED 226 10^3/uL (150-450); RED BLOOD COUNT 4.24 10^6/uL (4.00-5.40)
[2019-07-01 06:45] LABS: CALCIUM LEVEL 8.6 MG/DL (8.8-10.2); CREATININE FOR GFR 1.23 MG/DL (0.55-1.30); DIGOXIN LEVEL 1.4 NG/ML (0.5-2.0); GLOMERULAR FILTRATION RATE 44.4 (>32); MAGNESIUM LEVEL 2.5 MG/DL (1.8-2.4); POTASSIUM SERUM 3.5 MEQ/L (3.5-5.1)
--- NOTE | 2019-07-01 07:00 | ECGEPIP ---
[facility] Test Date: 2019-06-30 Pat Name: CORI LONG Department: Room: [place] [address] Gender: Female Platinum Smith: RF : 1935 Requested By: Preston Flor Order Number: [id number] Reading MD: Guicho Michael Measurements Intervals [place] Rate: 112 P: UT: 0 QRS: 3 QRSD: 83 T: 207 QT: 277 QTc: 378 Interpretive Statements Baseline artifact Underlying atrial fibrillation with somewhat rapid ventricular response Somewhat low voltage with slow precordial R-wave progression Body habitus versus pulmonary disease Diffuse ST/T-wave abnormalities Repolarization abnormalities slightly more prominent than 06/25/19 Clinical correlation advised. Electronically Signed on 07-01-2019 7:00:35 EST by Guicho Michael
[2019-07-01] MEDS: BREO ELLIPTA INH SCH (07:39)
[2019-07-01] MEDS: IPRATROPIUM 0.5MG/ALBUTEROL 2.5MG INH SOL UD 3ML (DUONEB)(J7620) NEB SCH ×4 (07:40→19:57)
[2019-07-01] MEDS: SERTRALINE HCL 50 MG TAB PO SCH (08:53)
[2019-07-01] MEDS: NYSTATIN 100,000 UNITS/GM TOPICAL PWD 15 GM TOP SCH ×2 (08:53→21:49)
[2019-07-01] MEDS: predniSONE 10 MG TAB PO SCH (08:53)
[2019-07-01] MEDS: CEPHALEXIN 500 MG CAP PO SCH ×2 (08:53→21:42)
[2019-07-01] MEDS: DIGOXIN 0.125 MG TAB PO SCH (08:53)
[2019-07-01] MEDS: ASPIRIN 81 MG ENTERIC TAB PO SCH (08:53)
[2019-07-01] MEDS: ANALGESIC BALM CRM 120 GM TOP SCH ×4 (08:54→21:48)
--- NOTE | 2019-07-01 11:05 | IPN ---
DATE: 07/01/2019 Sheree feels well and despite two liters of oral intake of fluids, she is more hypernatremic than yesterday. Denies any shortness of breath. Her heart rate responded nicely to low dose beta shraddha. She has maintained a good blood pressure with it also. PHYSICAL EXAMINATION: Blood pressure 127/58, pulse 84. General appearance: Alert and conversant. No distress. Mucous membranes are moist. Skin turgor are normal. Lungs clear. Heart regular rate and rhythm. Abdomen soft and nontender. Trace peripheral edema. LABS: Sodium 156, potassium 3.5, BUN 47, creatinine 1.23, glucose 124. White count 14, hemoglobin 12.7 and platelets 266, digoxin level 1.4. IMPRESSION: 1. Atrial fibrillation with rapid ventricular response. Her rates responded nicely to low dose beta shraddha in addition to the diltiazem and digoxin. Digoxin level is therapeutic. 2. Hypernatremia: We have pushed free water. Will continue to do so. I have ordered urine osmolarity and sodium. I asked nursing staff to be sure that her pureed diet includes low salt. 3 E Coli urinary tract infection: The UTI could have lead to some renal injury causing the loss of free water. She is now on oral antibiotics, cephalexin. 4. Acute kidney injury secondary to sepsis on admission. Renal function is back to baseline. Again this could be contributing to the sodium abnormalities as well.
[2019-07-01 12:35] LABS: OSMOLALITY URINE 493 MOSM/KG (500-800)
[2019-07-01 12:48] LABS: SODIUM,RANDOM URINE 35 MEQ/L
[2019-07-01 14:00] VITALS: BP 121/74
[2019-07-01] MEDS: RIVAROXABAN 15 MG TAB (XARELTO) PO SCH (17:17)
[2019-07-01 18:00] VITALS: BP 121/64
[2019-07-01 22:00] VITALS: BP 148/70
[2019-07-02 02:00] VITALS: BP 128/78
[2019-07-02 06:00] VITALS: BP 131/81
[2019-07-02 06:08] LABS: HEMATOCRIT 38.6 % (36.0-47.0); HEMOGLOBIN 11.5 g/dl (12.0-15.5); MEAN CORPUSCULAR HEMOGLOBIN 29.7 pg (27.0-33.0); MEAN CORPUSCULAR HGB CONC 29.8 g/dl (32.0-36.5); MEAN CORPUSCULAR VOLUME 99.7 fl (80.0-96.0); PLATELET COUNT, AUTOMATED 228 10^3/uL (150-450); RED BLOOD COUNT 3.87 10^6/uL (4.00-5.40); WHITE BLOOD COUNT 12.4 10^3/uL (4.0-10.0)
[2019-07-02 06:27] LABS: CALCIUM LEVEL 8.2 MG/DL (8.8-10.2); CREATININE FOR GFR 1.1 MG/DL (0.55-1.30); GLOMERULAR FILTRATION RATE 50.5 (>32); MAGNESIUM LEVEL 2.3 MG/DL (1.8-2.4); POTASSIUM SERUM 3.5 MEQ/L (3.5-5.1)
[2019-07-02] MEDS: METOPROLOL TART 12.5 MG PER 1/2 TAB PO SCH ×3 (06:39→21:32)
[2019-07-02] MEDS: BREO ELLIPTA INH SCH (08:01)
[2019-07-02] MEDS: IPRATROPIUM 0.5MG/ALBUTEROL 2.5MG INH SOL UD 3ML (DUONEB)(J7620) NEB SCH ×4 (08:01→19:19)
[2019-07-02] MEDS ORDERED: METO1TAB87 PO (08:52)
[2019-07-02] MEDS ORDERED: XARE15TA PO (08:52)
[2019-07-02] MEDS ORDERED: DIGO0.123 PO (08:52)
[2019-07-02] MEDS ORDERED: CEPH500C PO (08:52)
[2019-07-02] MEDS ORDERED: DILT30TA PO (08:52)
[2019-07-02] MEDS: CEPHALEXIN 500 MG CAP PO SCH ×2 (09:08→21:30)
[2019-07-02] MEDS: predniSONE 10 MG TAB PO SCH (09:08)
[2019-07-02] MEDS: ASPIRIN 81 MG ENTERIC TAB PO SCH (09:09)
[2019-07-02] MEDS: SERTRALINE HCL 50 MG TAB PO SCH (09:09)
[2019-07-02] MEDS: DIGOXIN 0.125 MG TAB PO SCH (09:10)
[2019-07-02] MEDS: NYSTATIN 100,000 UNITS/GM TOPICAL PWD 15 GM TOP SCH ×2 (09:10→21:30)
[2019-07-02] MEDS: ANALGESIC BALM CRM 120 GM TOP SCH ×4 (09:10→21:30)
[2019-07-02 10:00] VITALS: BP 130/80
--- NOTE | 2019-07-02 11:04 | DSES ---
DATE OF ADMISSION: 06/26/2019 DATE OF DISCHARGE: PRINCIPAL DIAGNOSIS: Metabolic encephalopathy secondary to Escherichia (E) coli urinary tract infection (UTI). SECONDARY DIAGNOSES: 1. Atrial fibrillation with rapid ventricular response. 2. Hypokalemia. 3. Hypernatremia. 4. Dementia. HISTORY: The patient was admitted to the hospitalist service with confusion. He was felt initially to have pneumonia. I assumed her care after a few days of the hospitalization and at that point it became apparent that she had an E coli UTI with E coli bacteremia. She was treated with IV Rocephin and then was converted to Keflex. She developed no fever or recurrence of infectious symptoms on oral antibiotic. She was on the medical floor, but she developed atrial fibrillation with rapid ventricular response. She was transferred to a monitored bed. We adjusted her medications and her heart rate came under good control with a therapeutic digoxin level. No signs of toxicity. She became hypernatremic. Workup was done and she responded with improved sodium to pushing free water. On date of dictation, sodium is 152, potassium 3.5, BUN 39, creatinine 1.1, glucose 105, white count 12.4, down from 21,000 on admission. Hemoglobin 11.5, platelets 228. She did have methicillin resistant Staphylococcus aureus (MRSA) isolated on the nasal swab. Blood and urine cultures were positive for E coli with sensitivities as listed. She had a MRI of the brain done on admission that showed small vessel disease. DISPOSITION: At this point, she is stable for [facility] on Thursday, which is apparently the day of planned discharge. Activity is as tolerated. She is on a pureed diet. Dr. Sorto is her physician at [facility]. I would recommend a low salt diet, pushing water. She also will need a BMP early next week to keep an eye on her sodium. MEDICATIONS: - Tylenol as needed - albuterol via nebulizer as needed - aspirin 81 mg daily - digoxin 0.125 mg daily - diltiazem 90 mg every 6 hours - famotidine 20 mg daily - Breo Ellipta 100/25 inhalation daily - DuoNeb as needed - milk of magnesia as needed - prednisone 10 mg daily - Seroquel 12.5 mg at night - simethicone as needed - Fleet enema as needed - Keflex 500 mg twice a day for 5 more days - metoprolol 12.5 mg every 8 hours - Xarelto 15 mg daily Anticipate discharge on 07/04/2019
[2019-07-02 14:00] VITALS: BP 121/70
[2019-07-02 18:00] VITALS: BP 138/74
[2019-07-02] MEDS: RIVAROXABAN 15 MG TAB (XARELTO) PO SCH (18:05)
[2019-07-02 22:00] VITALS: BP 146/76
[2019-07-03 02:00] VITALS: BP 144/72
[2019-07-03] MEDS: METOPROLOL TART 12.5 MG PER 1/2 TAB PO SCH ×3 (05:50→20:16)
[2019-07-03 06:00] VITALS: BP 140/78
[2019-07-03] MEDS: BREO ELLIPTA INH SCH (07:15)
[2019-07-03] MEDS: IPRATROPIUM 0.5MG/ALBUTEROL 2.5MG INH SOL UD 3ML (DUONEB)(J7620) NEB SCH ×4 (07:15→20:43)
[2019-07-03] MEDS: CEPHALEXIN 500 MG CAP PO SCH ×2 (09:48→20:16)
[2019-07-03] MEDS: ASPIRIN 81 MG ENTERIC TAB PO SCH (09:48)
[2019-07-03] MEDS: ANALGESIC BALM CRM 120 GM TOP SCH ×4 (09:48→20:15)
[2019-07-03] MEDS: predniSONE 10 MG TAB PO SCH (09:54)
[2019-07-03] MEDS: DIGOXIN 0.125 MG TAB PO SCH (09:54)
[2019-07-03] MEDS: NYSTATIN 100,000 UNITS/GM TOPICAL PWD 15 GM TOP SCH ×2 (09:55→20:14)
[2019-07-03] MEDS: SERTRALINE HCL 50 MG TAB PO SCH (09:55)
[2019-07-03] MEDS: RIVAROXABAN 15 MG TAB (XARELTO) PO SCH (18:11)
[2019-07-03] MEDS: ACETAMINOPHEN TAB 650MG DOSE (2X325MG) PO PRN (20:16)
[2019-07-04 06:00] VITALS: BP 123/67
[2019-07-04 06:21] VITALS: BP 123/67
[2019-07-04] MEDS: METOPROLOL TART 12.5 MG PER 1/2 TAB PO SCH (06:21)
[2019-07-04 07:01] LABS: HEMATOCRIT 36.2 % (36.0-47.0); HEMOGLOBIN 11.5 g/dl (12.0-15.5); MEAN CORPUSCULAR HEMOGLOBIN 30.2 pg (27.0-33.0); MEAN CORPUSCULAR HGB CONC 31.8 g/dl (32.0-36.5); PLATELET COUNT, AUTOMATED 286 10^3/uL (150-450); RED BLOOD COUNT 3.81 10^6/uL (4.00-5.40); WHITE BLOOD COUNT 13.5 10^3/uL (4.0-10.0)
[2019-07-04 07:23] LABS: BLOOD UREA NITROGEN 28 MG/DL (7-18); CALCIUM LEVEL 8.1 MG/DL (8.8-10.2); CARBON DIOXIDE LEVEL 26 MEQ/L (21-32); CHLORIDE LEVEL 112 MEQ/L (98-107); GLOMERULAR FILTRATION RATE > 60.0 (>32); GLUCOSE, FASTING 87 MG/DL (70-100); POTASSIUM SERUM 3.5 MEQ/L (3.5-5.1); SODIUM LEVEL 144 MEQ/L (136-145)
[2019-07-04] MEDS: IPRATROPIUM 0.5MG/ALBUTEROL 2.5MG INH SOL UD 3ML (DUONEB)(J7620) NEB SCH (08:18)
[2019-07-04] MEDS: SERTRALINE HCL 50 MG TAB PO SCH (08:22)
[2019-07-04] MEDS: CEPHALEXIN 500 MG CAP PO SCH (08:23)
[2019-07-04] MEDS: DIGOXIN 0.125 MG TAB PO SCH (08:23)
[2019-07-04] MEDS: predniSONE 10 MG TAB PO SCH (08:23)
[2019-07-04] MEDS: ASPIRIN 81 MG ENTERIC TAB PO SCH (08:23)
[2019-07-04] MEDS: ANALGESIC BALM CRM 120 GM TOP SCH (08:24)
[2019-07-04] MEDS: NYSTATIN 100,000 UNITS/GM TOPICAL PWD 15 GM TOP SCH (08:25)
== END 2019-07-04 11:27 | DRG 871 ==
LOC: M ED 23:02 → M ED INP 06-26 00:32 → M ICU 06-26 03:02 → M MSPAV 06-29 17:09
PROVIDERS: ADMIT Internal Medicine; ATTEND Family Medicine
DX: A41.9 Sepsis, unspecified organism (principal); G93.41 Metabolic encephalopathy; N39.0 Urinary tract infection, site not specified; I48.20 Chronic atrial fibrillation, unspecified; I50.32 Chronic diastolic (congestive) heart failure; E87.0 Hyperosmolality and hypernatremia; N17.9 Acute kidney failure, unspecified; E87.6 Hypokalemia; F03.90 Unspecified dementia, unspecified severity, without behavioral disturbance, psychotic disturbance, mood disturbance, and anxiety; B96.29 Other Escherichia coli [E. coli] as the cause of diseases classified elsewhere; Z79.82 Long term (current) use of aspirin; Z79.899 Other long term (current) drug therapy; J44.9 Chronic obstructive pulmonary disease, unspecified; M19.90 Unspecified osteoarthritis, unspecified site; I11.0 Hypertensive heart disease with heart failure; K21.9 Gastro-esophageal reflux disease without esophagitis; E53.8 Deficiency of other specified B group vitamins; F32.9 Major depressive disorder, single episode, unspecified; Z79.52 Long term (current) use of systemic steroids; Z88.8 Allergy status to other drugs, medicaments and biological substances; E87.5 Hyperkalemia

== ENCOUNTER → 2019-06-25 | Outpatient (REF) | payer MEDICARE, OTHER, MEDICAID ==
[~2019-06-25] MED LIST changes: +ACET1TAB55 PO; +ALBU83IN NEB; +BENZ200C70 PO; +BREO1INH INH; +CARD240C5 PO; -DIGO0.12 PO; +DIGO0.123 PO; +ENEMENE PR; +FURO40TA2 PO; +MILKSUS3 PO; +MULTCAP PO; +POTA10TA16 PO; +PRED10TA2 PO
--- NOTE | 2019-06-25 21:43 | ECGEPIP ---
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
== END ==
LOC: M EKG 08:43
PROVIDERS: ATTEND Family Medicine
DX: R03.0 Elevated blood-pressure reading, without diagnosis of hypertension (principal)

== ENCOUNTER → 2019-07-05 | Outpatient (REF) ==
[~2019-07-05] MED LIST changes: +ACET1TAB55 PO; +ALBU83IN NEB; +BENZ200C70 PO; +BREO1INH INH; +CARD240C5 PO; +DILT30TA PO; +ENEMENE PR; +FURO40TA2 PO; +METO1TAB87 PO; +MILKSUS3 PO; +MULTCAP PO; +POTA10TA16 PO; +PRED10TA2 PO; +XARE15TA PO
== END ==
LOC: SKLAB7 14:07
PROVIDERS: ATTEND Family Medicine
DX: A49.02 Methicillin resistant Staphylococcus aureus infection, unspecified site (principal)

== ENCOUNTER → 2019-07-07 | Outpatient (REF) | payer MEDICARE, OTHER, MEDICAID ==
[2019-07-07 09:51] LABS: CALCIUM LEVEL 8.3 MG/DL (8.8-10.2); CREATININE FOR GFR 1.03 MG/DL (0.55-1.30); GLOMERULAR FILTRATION RATE 54.5 (>32); POTASSIUM SERUM 3.5 MEQ/L (3.5-5.1)
== END ==
LOC: SKLAB7 03:48
PROVIDERS: ATTEND Family Medicine
DX: I48.91 Unspecified atrial fibrillation (principal)

== ENCOUNTER → 2019-07-11 | Outpatient (REF) ==
[2019-07-11 08:05] LABS: HEMATOCRIT 33.9 % (36.0-47.0); HEMOGLOBIN 10.7 g/dl (12.0-15.5); MEAN CORPUSCULAR HEMOGLOBIN 30.1 pg (27.0-33.0); MEAN CORPUSCULAR HGB CONC 31.6 g/dl (32.0-36.5); MEAN CORPUSCULAR VOLUME 95.2 fl (80.0-96.0); PLATELET COUNT, AUTOMATED 242 10^3/uL (150-450); RED BLOOD COUNT 3.56 10^6/uL (4.00-5.40); WHITE BLOOD COUNT 10.1 10^3/uL (4.0-10.0)
== END ==
LOC: SKLAB3 06:56 → SKLAB7 06:56
PROVIDERS: ATTEND Family Medicine
DX: N39.0 Urinary tract infection, site not specified (principal)

== ENCOUNTER → 2019-07-14 | Outpatient (REF) ==
[~2019-07-14] MED LIST changes: -LORA0.5T11 PO; +LORA0.5T5 PO
[2019-07-14 10:12] LABS: CALCIUM LEVEL 8.3 MG/DL (8.8-10.2); CREATININE FOR GFR 1.04 MG/DL (0.55-1.30); DIGOXIN LEVEL 1.2 NG/ML (0.5-2.0); GLOMERULAR FILTRATION RATE 53.7 (>32); POTASSIUM SERUM 3.2 MEQ/L (3.5-5.1)
== END ==
LOC: SKLAB7 07:00
PROVIDERS: ATTEND Family Medicine
DX: I48.91 Unspecified atrial fibrillation (principal)

== ENCOUNTER → 2019-07-18 | Outpatient (REF) ==
[~2019-07-18] MED LIST changes: +LORA0.5T11 PO; -LORA0.5T5 PO
[2019-07-18 10:28] LABS: HEMATOCRIT 33.6 % (36.0-47.0); HEMOGLOBIN 10.6 g/dl (12.0-15.5); MEAN CORPUSCULAR HEMOGLOBIN 30.5 pg (27.0-33.0); MEAN CORPUSCULAR HGB CONC 31.5 g/dl (32.0-36.5); MEAN CORPUSCULAR VOLUME 96.8 fl (80.0-96.0); PLATELET COUNT, AUTOMATED 179 10^3/uL (150-450); RED BLOOD COUNT 3.47 10^6/uL (4.00-5.40)
== END ==
LOC: SKLAB7 07:21
PROVIDERS: ATTEND Family Medicine
DX: D64.9 Anemia, unspecified (principal)

== ENCOUNTER → 2019-07-19 | Outpatient (REF) ==
[~2019-07-19] MED LIST changes: -LORA0.5T11 PO; +LORA0.5T5 PO
[2019-07-19 07:02] LABS: CREATININE FOR GFR 0.98 MG/DL (0.55-1.30); GLOMERULAR FILTRATION RATE 57.6 (>32); POTASSIUM SERUM 3.2 MEQ/L (3.5-5.1)
== END ==
LOC: SKLAB7 10:41
PROVIDERS: ATTEND Family Medicine
DX: I50.9 Heart failure, unspecified (principal)

== ENCOUNTER → 2019-07-25 | Outpatient (REF) ==
[2019-07-25 08:48] LABS: CALCIUM LEVEL 8.4 MG/DL (8.8-10.2); CREATININE FOR GFR 1.27 MG/DL (0.55-1.30); GLOMERULAR FILTRATION RATE 42.7 (>32); POTASSIUM SERUM 4.1 MEQ/L (3.5-5.1)
== END ==
LOC: SKLAB7 07:00
PROVIDERS: ATTEND Family Medicine
DX: I50.9 Heart failure, unspecified (principal)

== ENCOUNTER → 2019-08-01 | Outpatient (REF) ==
[2019-08-01 08:57] LABS: CALCIUM LEVEL 7.9 MG/DL (8.8-10.2); CREATININE FOR GFR 1.15 MG/DL (0.55-1.30); DIGOXIN LEVEL 1.6 NG/ML (0.5-2.0); GLOMERULAR FILTRATION RATE 47.9 (>32); POTASSIUM SERUM 4.3 MEQ/L (3.5-5.1)
== END ==
LOC: SKLAB7 07:00
PROVIDERS: ATTEND Family Medicine
DX: I50.9 Heart failure, unspecified (principal)

== ENCOUNTER → 2019-08-05 | Outpatient (REF) | payer MEDICARE, OTHER, MEDICAID | LOC: SKLAB7 08-04 23:44 | PROVIDERS: ATTEND Family Medicine | DX: Z86.14 Personal history of Methicillin resistant Staphylococcus aureus infection (principal) ==

== ENCOUNTER → 2019-08-05 | Outpatient (REF) | payer MEDICARE, OTHER, MEDICAID | LOC: SKLAB7 10:47 | PROVIDERS: ATTEND Family Medicine | DX: Z86.14 Personal history of Methicillin resistant Staphylococcus aureus infection (principal) ==

== ENCOUNTER → 2019-08-12 | Outpatient (REF) | payer MEDICARE, OTHER, MEDICAID | LOC: SKLAB7 11:35 | PROVIDERS: ATTEND Family Medicine | DX: Z22.322 Carrier or suspected carrier of Methicillin resistant Staphylococcus aureus (principal) ==

== ENCOUNTER → 2019-08-19 | Outpatient (REF) | payer MEDICARE, OTHER, MEDICAID | LOC: SKLAB7 13:46 | PROVIDERS: ATTEND Family Medicine | DX: Z22.322 Carrier or suspected carrier of Methicillin resistant Staphylococcus aureus (principal) ==

== ENCOUNTER → 2019-09-15 | Outpatient (REF) | payer MEDICARE, OTHER, MEDICAID ==
[2019-09-15 09:21] LABS: CALCIUM LEVEL 9.1 MG/DL (8.8-10.2); CREATININE FOR GFR 1.34 MG/DL (0.55-1.30); DIGOXIN LEVEL 1.2 NG/ML (0.5-2.0); GLOMERULAR FILTRATION RATE 40.1 (>32); POTASSIUM SERUM 4.1 MEQ/L (3.5-5.1)
== END ==
LOC: SKLAB7 07:00
PROVIDERS: ATTEND Family Medicine
DX: I48.91 Unspecified atrial fibrillation (principal); I50.9 Heart failure, unspecified

== ENCOUNTER → 2019-09-29 | Outpatient (REF) | payer MEDICARE, OTHER, MEDICAID | LOC: SKLAB7 07:14 | PROVIDERS: ATTEND Family Medicine | DX: R50.9 Fever, unspecified (principal) ==

== ENCOUNTER → 2019-09-29 | Outpatient (REF) | payer MEDICARE, OTHER, MEDICAID ==
[2019-09-29 08:58] LABS: HEMATOCRIT 36.8 % (36.0-47.0); HEMOGLOBIN 11.3 g/dl (12.0-15.5); MEAN CORPUSCULAR HEMOGLOBIN 28.8 pg (27.0-33.0); MEAN CORPUSCULAR HGB CONC 30.7 g/dl (32.0-36.5); MEAN CORPUSCULAR VOLUME 93.9 fl (80.0-96.0); PLATELET COUNT, AUTOMATED 234 10^3/uL (150-450); RED BLOOD COUNT 3.92 10^6/uL (4.00-5.40); WHITE BLOOD COUNT 29.9 10^3/uL (4.0-10.0)
[2019-09-29 09:27] LABS: CREATININE FOR GFR 1.31 MG/DL (0.55-1.30); GLOMERULAR FILTRATION RATE 41.2 (>32); POTASSIUM SERUM 4.2 MEQ/L (3.5-5.1)
--- NOTE | 2019-09-29 15:42 | REP ---
CHEST, PORTABLE: AP portable view of the chest is performed and compared to a prior study of 06/26/2019. There appears to be some minimal atelectasis or infiltrate along the right diaphragm. Otherwise no new infiltrate is seen bilaterally. The heart is enlarged. The mediastinal silhouette is unremarkable and unchanged. Azygos lobe is again noted superiorly on the right. Right hemidiaphragm is mildly elevated, unchanged. IMPRESSION: Suspect very mild atelectasis or infiltrate along the right hemidiaphragm. Cardiomegaly. Electronically Signed by Francois Cardenas MD 09/29/2019 05:43 P
== END ==
LOC: SKLAB7 04:29
PROVIDERS: ATTEND Family Medicine
DX: R50.9 Fever, unspecified (principal); I51.7 Cardiomegaly

== ENCOUNTER → 2019-10-01 | Outpatient (REF) | payer MEDICARE, OTHER, MEDICAID | LOC: SKLAB7 13:34 | PROVIDERS: ATTEND Family Medicine | DX: R50.9 Fever, unspecified (principal) ==

== ENCOUNTER → 2019-10-04 | Outpatient (REF) | payer MEDICARE, OTHER, MEDICAID ==
[2019-10-04 07:10] LABS: BASO % 0.1 % (0.0-1.0); EOS % 0.1 % (0.0-3.0); HEMATOCRIT 30.8 % (36.0-47.0); HEMOGLOBIN 9.5 g/dl (12.0-15.5); LYMPH # 1.4 10^3/uL (1.5-5.0); LYMPH % 8.9 % (24.0-44.0); MEAN CORPUSCULAR HEMOGLOBIN 28.2 pg (27.0-33.0); MEAN CORPUSCULAR HGB CONC 30.8 g/dl (32.0-36.5); MEAN CORPUSCULAR VOLUME 91.4 fl (80.0-96.0); MONO # 0.8 10^3/uL (0.0-0.8); MONO % 5.3 % (0.0-5.0); NEUTROPHILS # 12.8 10^3/uL (1.5-8.5); NEUTROPHILS % 84.5 % (36.0-66.0); PLATELET COUNT, AUTOMATED 274 10^3/uL (150-450); RED BLOOD COUNT 3.37 10^6/uL (4.00-5.40); WHITE BLOOD COUNT 15.2 10^3/uL (4.0-10.0)
[2019-10-04 07:37] LABS: CALCIUM LEVEL 8.7 MG/DL (8.8-10.2); CREATININE FOR GFR 1.29 MG/DL (0.55-1.30); GLOMERULAR FILTRATION RATE 41.9 (>32); POTASSIUM SERUM 3.8 MEQ/L (3.5-5.1)
== END ==
LOC: SKLAB7 07:00
PROVIDERS: ATTEND Family Medicine
DX: I50.9 Heart failure, unspecified (principal); D64.9 Anemia, unspecified

== ENCOUNTER → 2019-11-08 | Outpatient (REF) | payer MEDICARE, OTHER, MEDICAID ==
[2019-11-08 08:23] LABS: CALCIUM LEVEL 8.8 MG/DL (8.8-10.2); CREATININE FOR GFR 1.12 MG/DL (0.55-1.30); DIGOXIN LEVEL 1.1 NG/ML (0.5-2.0); GLOMERULAR FILTRATION RATE 49.3 (>32)
== END ==
LOC: SKLAB7 10:07
PROVIDERS: ATTEND Family Medicine
DX: I48.91 Unspecified atrial fibrillation (principal)

== ENCOUNTER → 2019-11-24 | Outpatient (REF) | LOC: SKLAB7 09:00 | PROVIDERS: ATTEND Internal Medicine | DX: Z03.818 Encounter for observation for suspected exposure to other biological agents ruled out (principal) ==

== ENCOUNTER → 2019-12-28 | Outpatient (REF) | payer MEDICARE, OTHER, MEDICAID | LOC: SKLAB7 10:36 | PROVIDERS: ATTEND Family Medicine | DX: I48.91 Unspecified atrial fibrillation (principal); R60.9 Edema, unspecified; I25.10 Atherosclerotic heart disease of native coronary artery without angina pectoris ==

== ENCOUNTER → 2019-12-29 | Outpatient (REF) | payer MEDICARE, OTHER, MEDICAID ==
[2019-12-29 09:47] LABS: BASO % 0.4 % (0.0-1.0); EOS # 0.1 10^3/uL (0.0-0.5); EOS % 1.3 % (0.0-3.0); HEMATOCRIT 38.7 % (36.0-47.0); HEMOGLOBIN 11.7 g/dl (12.0-15.5); LYMPH # 1.7 10^3/uL (1.5-5.0); LYMPH % 16.9 % (24.0-44.0); MEAN CORPUSCULAR HEMOGLOBIN 26.5 pg (27.0-33.0); MEAN CORPUSCULAR HGB CONC 30.2 g/dl (32.0-36.5); MEAN CORPUSCULAR VOLUME 87.6 fl (80.0-96.0); MONO # 0.8 10^3/uL (0.0-0.8); NEUTROPHILS # 7.3 10^3/uL (1.5-8.5); NEUTROPHILS % 72.8 % (36.0-66.0); PLATELET COUNT, AUTOMATED 232 10^3/uL (150-450); RED BLOOD COUNT 4.42 10^6/uL (4.00-5.40); WHITE BLOOD COUNT 10.1 10^3/uL (4.0-10.0)
[2019-12-29 10:35] LABS: CREATININE FOR GFR 1.16 MG/DL (0.55-1.30); DIGOXIN LEVEL 0.8 NG/ML (0.5-2.0); GLOMERULAR FILTRATION RATE 47.4 (>32); POTASSIUM SERUM 3.9 MEQ/L (3.5-5.1)
== END ==
LOC: SKLAB7 07:00
PROVIDERS: ATTEND Family Medicine
DX: I48.91 Unspecified atrial fibrillation (principal); I10 Essential (primary) hypertension

== ENCOUNTER → 2020-01-26 | Outpatient (REF) | payer MEDICARE, OTHER, MEDICAID ==
[2020-01-26 11:05] LABS: CREATININE FOR GFR 1.14 MG/DL (0.55-1.30); DIGOXIN LEVEL 0.9 NG/ML (0.5-2.0); GLOMERULAR FILTRATION RATE 48.3 (>32); POTASSIUM SERUM 3.5 MEQ/L (3.5-5.1)
== END ==
LOC: SKLAB7 07:00
DX: I48.91 Unspecified atrial fibrillation (principal); D64.9 Anemia, unspecified

== ENCOUNTER → 2020-02-22 | Outpatient (REF) | payer MEDICARE, OTHER, MEDICAID | LOC: CANPREREF → SKLAB7 18:00 | DX: N93.9 Abnormal uterine and vaginal bleeding, unspecified (principal); Z79.899 Other long term (current) drug therapy ==

== ENCOUNTER → 2020-02-22 | Outpatient (REF) | payer MEDICARE, OTHER, MEDICAID | LOC: CANPREREF → SKLAB7 06:00 | DX: N93.9 Abnormal uterine and vaginal bleeding, unspecified (principal) ==

== ENCOUNTER → 2020-02-22 | Outpatient (REF) | payer MEDICARE, OTHER, MEDICAID ==
[2020-05-01 14:29] LABS: APPEARANCE, URINE CLEAR (CLEAR); BACTERIA, URINE AUTO 1+ (NEGATIVE); BILIRUBIN, URINE AUTO NEGATIVE (NEGATIVE); BLOOD, URINE BLOOD 1+ (NEGATIVE); COLOR, URINE YELLOW (YELLOW); GLUCOSE, URINE (UA) AUTO NEGATIVE (NEGATIVE); KETONE, URINE AUTO NEGATIVE (NEGATIVE); LEUKOCYTE ESTERASE, URINE AUTO NEGATIVE (NEGATIVE); NITRITE, URINE AUTO NEGATIVE (NEGATIVE); PROTEIN, URINE AUTO NEGATIVE (NEGATIVE); RBC, URINE AUTO 10 /HPF (0-3); SPECIFIC GRAVITY URINE AUTO 1.008 (1.002-1.035); SQUAMOUS EPITHELIAL CELL UR AU 0 /HPF (0-6); UROBILINOGEN, URINE AUTO 0.2 mg/dL (0.0-2.0); WBC, URINE AUTO 1 /HPF (0-3)
== END ==
LOC: SKLAB7 11:00
PROVIDERS: ATTEND Internal Medicine Nephrology
DX: N93.9 Abnormal uterine and vaginal bleeding, unspecified (principal); Z79.899 Other long term (current) drug therapy

== ENCOUNTER → 2020-02-22 | Outpatient (REF) | payer MEDICARE, OTHER, MEDICAID ==
[2020-05-19 12:41] LABS: ALBUMIN 3.1 GM/DL (3.2-5.2); BILIRUBIN,TOTAL 0.4 MG/DL (0.2-1.0); CALCIUM LEVEL 8.7 MG/DL (8.8-10.2); CREATININE FOR GFR 1.22 MG/DL (0.55-1.30); GLOMERULAR FILTRATION RATE 44.7 (>32); POTASSIUM SERUM 4.4 MEQ/L (3.5-5.1); TOTAL PROTEIN 6.6 GM/DL (6.4-8.2)
== END ==
LOC: SKLAB7 07:00
DX: N93.9 Abnormal uterine and vaginal bleeding, unspecified (principal); Z79.899 Other long term (current) drug therapy

== ENCOUNTER → 2020-02-22 | Outpatient (REF) | payer MEDICARE, OTHER, MEDICAID | LOC: CANPREREF → SKLAB7 12:00 | DX: N93.9 Abnormal uterine and vaginal bleeding, unspecified (principal) ==

== ENCOUNTER → 2020-02-23 | Outpatient (REF) | payer MEDICARE, OTHER, MEDICAID ==
[2020-05-05 10:38] LABS: HEMOGLOBIN 11.7 g/dl (12.0-15.5); MEAN CORPUSCULAR HEMOGLOBIN 28.5 pg (27.0-33.0); MEAN CORPUSCULAR HGB CONC 31.6 g/dl (32.0-36.5); MEAN CORPUSCULAR VOLUME 90.2 fl (80.0-96.0); PLATELET COUNT, AUTOMATED 229 10^3/uL (150-450); WHITE BLOOD COUNT 8.5 10^3/uL (4.0-10.0)
[2020-05-19 12:10] LABS: ALBUMIN 3.3 GM/DL (3.2-5.2); BILIRUBIN,TOTAL 0.5 MG/DL (0.2-1.0); CALCIUM LEVEL 8.8 MG/DL (8.8-10.2); CREATININE FOR GFR 1.28 MG/DL (0.55-1.30); GLOMERULAR FILTRATION RATE 42.3 (>32); POTASSIUM SERUM 4.4 MEQ/L (3.5-5.1); TOTAL PROTEIN 6.9 GM/DL (6.4-8.2)
== END ==
LOC: SKLAB7 14:57
DX: N93.9 Abnormal uterine and vaginal bleeding, unspecified (principal); Z79.899 Other long term (current) drug therapy

== ENCOUNTER → 2020-02-28 | Outpatient (REF) | payer MEDICARE, OTHER, MEDICAID ==
[2020-04-23 15:33] LABS: HEMATOCRIT 37.8 % (36.0-47.0); HEMOGLOBIN 11.7 g/dl (12.0-15.5); MEAN CORPUSCULAR HEMOGLOBIN 28.4 pg (27.0-33.0); MEAN CORPUSCULAR VOLUME 91.7 fl (80.0-96.0); PLATELET COUNT, AUTOMATED 231 10^3/uL (150-450); RED BLOOD COUNT 4.12 10^6/uL (4.00-5.40); WHITE BLOOD COUNT 8.4 10^3/uL (4.0-10.0)
== END ==
LOC: SKLAB7 07:00
DX: N93.9 Abnormal uterine and vaginal bleeding, unspecified (principal); Z79.899 Other long term (current) drug therapy

== ENCOUNTER → 2020-02-28 | Outpatient (CLI) | payer MEDICARE, OTHER, MEDICAID | LOC: M RAD 08:09 | PROVIDERS: ATTEND Family Medicine | DX: R58 Hemorrhage, not elsewhere classified (principal) ==

== ENCOUNTER → 2020-02-29 | Outpatient (REF) | payer MEDICARE, OTHER, MEDICAID | LOC: SKLAB7 07:00 | DX: N93.9 Abnormal uterine and vaginal bleeding, unspecified (principal); Z79.899 Other long term (current) drug therapy ==

== ENCOUNTER → 2020-03-09 | Outpatient (REF) | payer MEDICARE, OTHER, MEDICAID ==
[2020-03-09 13:26] LABS: HEMATOCRIT 39.3 % (36.0-47.0); HEMOGLOBIN 12.1 g/dl (12.0-15.5); MEAN CORPUSCULAR HEMOGLOBIN 28.5 pg (27.0-33.0); MEAN CORPUSCULAR HGB CONC 30.8 g/dl (32.0-36.5); MEAN CORPUSCULAR VOLUME 92.5 fl (80.0-96.0); PLATELET COUNT, AUTOMATED 254 10^3/uL (150-450); RED BLOOD COUNT 4.25 10^6/uL (4.00-5.40); WHITE BLOOD COUNT 9.9 10^3/uL (4.0-10.0)
--- NOTE | 2020-03-22 09:45 | SKHPN ---
[facility] Progress Note Date of Service/Time Date: Mar 22, 2020 Time: 07:20 Progress Note SUBJECTIVE: Resident seen by fashion intern and Dr. Farfan on 02/02/2020. SUBJECTIVE: Ms. Moe was seen for continued care today at the [facility]. Per nursing staff, the diltiazem has been held off at certain times due to parameters SBP<110, or HR<80. She has not had any falls. She remains on a diet consisting of regular level 4 for solids, thin liquids or pills and pured assistance as needed. She has a new bruise on her left lateral breast that is un explained. She has a rash under her breasts on which nursing staff has been applying nystatin powder. Pt complains of burping and wanting her antacid pills. Patient is not a candidate for lower-level care due to intermittent breathing problems and diltiazem dose parameters. Her advanced directives indicate no resuscitation, limited medical interventions, no intubation hospitalization if necessary, and no feeding tubes, but she will accept a trial of IV fluids. MOLST form will be reviewed by Dr. Farfan. Medication list was reviewed: DuoNeb 0.5 mg3 mg/3 mL as directed 4 times per day Famotidine 20 mg daily Multivitamin daily Breo Ellipta (fluticasone furoatevilanterol) 78062 micrograms/dose 1 puff inhaled daily. Aspirin 81 mg delayed release daily. Furosemide 80 mg daily Sertraline 150 mg daily. Xarelto 15 mg daily Potassium chloride 40 milliequivalents daily. Acetaminophen 325 mg 2 tablets twice a day Cardizem 90 mg 3 times daily. Systolic blood pressure less than 110. Special instructions or hold if heart rate less than 80. Diclofenac 1% topical 2 times daily, apply to neck and left shoulder. Prednisone 5 mg daily. Tylenol 325 mg 2 tablets every 4 hours acetaminophen suppository 650 mg as needed every 4 hours Dulcolax 10 mg 1 suppository per rectum as needed daily. Enema 197 gram/118 mL, 1 unit per rectum as needed 1 time daily. Milk of magnesia suspension 400 mg/5 mL, 10 mL by mouth as needed Albuterol sulfate 2.5 mg/3 mL one nebulizer as needed every 4 hours. Dimethicone tablet, chewable 80 mg as needed 4 times daily Guaifenesin 100 mg/5 mL: 10 mL by mouth every 6 hours. OBJECTIVE: PHYSICAL EXAMINATION: VITAL SIGNS: Please see below. GENERAL: She appears in no acute distress and was alert and cooperative. HEENT: No facial weakness or rhinorrhea or neck masses appreciated. CARDIOVASCULAR: Irregularly irregular rate and rhythm, rate controlled. No JVD, no murmurs, rubs or gallops. LUNGS: Quiet and clear respirations ABDOMINAL: Soft, nontender EXTREMITIES: Minimal pitting edema in lower extremities, no rigidity appreciated. Low tremor in both hands. ASSESSMENT/PLAN: 1. Vaginal Bleeding: Pt is not currently bleeding. Will continue to monitor.Implications discussed with HCP See anemia below 2. Bruise on right breast: Nursing staff requested to monitor 3. Atrial fibrillation, rate well-controlled. Reduced Diltiazem to 60mg three times daily due to fluctuations in BP, Pt is anticoagulated on Xarelto 15 mg. Discontinued digoxin and digoxin lab levels, Rate controlled on Cardizem. 4. Dementia with paranoia, stable.Paronia not evident today 5. COPD: Decreased Duoneb treatments to three times daily. Continue prednisone 5mg. Continue Breo Ellipta at current dosing. Suspect asthma component after reviewing prior PFTs. 6. CHF: continue furosemide 80 mg daily, suspect right HF with mild pulmonary HTN after reviewing echo done by Dr. Em in 2014. reduce to 40mg today 7. GERD: Pepcid started again at 20mg daily due to return of GI distress (mild upper abdominal pain and burping). Pt wanted to be started on it again. 8. Dementia: /depression continue Zoloft 150 mg. Consider reducton next visit 9. Osteoarthritis, stable. 10. Anemia: pt's CBC is stable. Will continue to monitor CBC [id number] due to intermittent vaginal bleeding.HCP aware of possible frame aligner malignancy conservative Rx for now No intervention cbc q 3 monthes Ck Iron studies 11.Chronic prednisone therapy consider biphosphonate Osteoporosis risk Dr. Farfan was physically present during the encounter and was fully available. All aspects of the patient interview, examination, medical decision- making, and medical care plan. Development were reviewed and improved by the jassi simons preceptor. The faculty preceptor is aware and concurs with the plan as stated in this note and will attest to such by his cosignature. Allergies Coded Allergies: ciprofloxacin (Verified Allergy, Unknown, UNKNOWN, 06/25/19) haloperidol (Verified Allergy, Unknown, UNKNOWN, 06/25/19) propoxyphene (Verified Allergy, Unknown, UNKNOWN, 06/25/19) Jonathan Nam DO Mar 22, 2020 09:45 Bryanna Farfan DO Mar 22, 2020 14:51
--- NOTE | 2020-04-20 11:32 | SKHPN ---
[facility] Progress Note Date of Service/Time Date: Apr 20, 2020 Progress Note SUBJECTIVE: Resident seen by software engineer intern and Dr. Farfan on 04/20/2020. Ms. Moe was seen for continued care today at the [facility]. Per nursing staff, she is doing well on the current Prednisonedosewhich we previously had decreased. She has not had any falls. She remains on a diet consisting of regular level 4 for solids, thin liquids or pills and pured ass istance as needed. Her intertriginous rash under her breasts has improved according to the nursing staff and they continue to apply nystatin powder. She complains of musculoskeletal pain in her left shoulder that decreases her range of motion. Patient is not a candidate for lower-level care due to intermittent breathing problems and cognitive dysfx. Her advanced directives indicate no resuscitation, limited medical interventions, no intubation hospitalization if necessary, and no feeding tubes, but she will accept a trial of IV fluids. MOLST form has been reviewed by Dr. Farfan on 04/20/2020. Medication list was reviewed: DuoNeb 0.5 mg3 mg/3 mL as directed 3 times per day Famotidine 20 mg daily Multivitamin daily Breo Ellipta (fluticasone furoatevilanterol) 96850 micrograms/dose 1 puff inhaled daily. Aspirin 81 mg delayed release daily. Furosemide 40 mg daily Sertraline 150 mg daily. Xarelto 15 mg daily Potassium chloride 40 milliequivalents daily. Acetaminophen 325 mg 2 tablets twice a day Cardizem 60 mg 3 times daily. Special instructions: Hold if systolic blood pressure less than 110 if heart rate less than 80. Diclofenac 1% topical 2 times daily, apply to neck and left shoulder. Prednisone 5 mg daily. Tylenol 325 mg 2 tablets every 4 hours acetaminophen suppository 650 mg as needed every 4 hours Dulcolax 10 mg 1 suppository per rectum as needed daily. Enema 197 gram/118 mL, 1 unit per rectum as needed 1 time daily. Milk of magnesia suspension 400 mg/5 mL, 10 mL by mouth as needed Albuterol sulfate 2.5 mg/3 mL one nebulizer as needed every 4 hours. Dimethicone tablet, chewable 80 mg as needed 4 times daily Guaifenesin 100 mg/5 mL: 10 mL by mouth every 6 hours. OBJECTIVE: PHYSICAL EXAMINATION: VITAL SIGNS: Please see below. GENERAL: She appears in no acute distress and was alert and cooperative. She was pleasant today, an improved status from prior visit when she was complaining. HEENT: No facial weakness or rhinorrhea or neck masses appreciated. CARDIOVASCULAR: Irregularly irregular rate and rhythm, rate controlled. No JVD, no murmurs, rubs or gallops. LUNGS: Quiet and clear respirations ABDOMINAL: Soft, nontender EXTREMITIES: Minimal pitting edema in lower extremities, no rigidity appreciated. LABORATORY DATA: Please see below. IMAGING: Pulmonary Function Test: DATE OF SERVICE: 11/19/16 SPIROMETRY: Pre and post bronchodilator study of excellent technical quality. The forced vital capacity is severely reduced. The FEV1 is out of proportion. The obstructive index is, therefore, reduced. Significant underlying obstructive ventilatory defect with a significant bronchodilator response. Air trapping is suspected. A full study had been recommended, but the patient was unable to perform the required maneuvers. Riky Massey MD 11/19/16 1506 DVT prophylaxis: pt is on Xarelto 15mg daily. ASSESSMENT/PLAN: 1. Vaginal Bleeding: Pt is not currently bleeding. Will continue to monitor. Implications discussed with HCP. See anemia below 2. Atrial fibrillation, rate well-controlled. Continue Diltiazem to 60mg three times daily due to fluctuations in BP, Pt is anticoagulated on Xarelto 15 mg. Okay to administer Xarelto during the day, since nursing staff is overwhelmed during the night. Rate controlled on Cardizem. 4. Dementia with paranoia, stable. Paranoia not evident today 5. COPD: Continue DuoNeb treatments to three times daily. Continue prednisone 5mg. Continue Breo Ellipta at current dosing. Suspect asthma component after reviewing prior PFTs as listed above. 6. CHF: continue furosemide 40 mg daily, reviewed Echocardiogram done by Dr. Em in 2015. Pt's LVEF:70% as of 2015. 7. GERD: Continue Pepcid 20mg daily. 8. Dementia/depression: continue Zoloft 150 mg. Pt's mood is improved during this visit. 9. Osteoarthritis, stable. 10. Anemia: pt's CBC is stable. Will continue to monitor CBC [id number] due to intermittent vaginal bleeding. HCP aware of possible radiology manager malignancy conse rvative Rx for now. 11. Osteoporosis risk: Pt does not have prior fractures listed in chart. However, she is now an osteoporosis risk due to chronic prednisone therapy. Prior to reduction in March, her prednisone dose was 10mg. Doses of higher than 7.5mg have been shown to lead to osteoporosis and linked to fractures. Therefore, alendronate, a bisphosphonate has been ordered. Dr. Farfan was physically present during the encounter and was fully available. All aspects of the patient interview, examination, medical decision- making, and medical care plan. Development were reviewed and improved by the faculty preceptor. The faculty preceptor is aware and concurs with the plan as stated in this note and will attest to such by his cosignature. Allergies Coded Allergies: ciprofloxacin (Verified Allergy, Unknown, UNKNOWN, 06/25/19) haloperidol (Verified Allergy, Unknown, UNKNOWN, 06/25/19) propoxyphene (Verified Allergy, Unknown, UNKNOWN, 06/25/19) Allergies Coded Allergies: ciprofloxacin (Verified Allergy, Unknown, UNKNOWN, 06/25/19) haloperidol (Verified Allergy, Unknown, UNKNOWN, 06/25/19) propoxyphene (Verified Allergy, Unknown, UNKNOWN, 06/25/19) Jonathan Nam DO Apr 20, 2020 11:32 Bryanna Farfan DO Apr 20, 2020 11:52
== END ==
LOC: SKLAB7 03-08 14:33
DX: N93.9 Abnormal uterine and vaginal bleeding, unspecified (principal)

== ENCOUNTER → 2020-05-24 | Outpatient (REF) ==
[2020-05-25 08:16] LABS: INFLUENZA A AMPLIFICATION NEGATIVE (NEGATIVE); INFLUENZA B AMPLIFICATION NEGATIVE (NEGATIVE)
== END ==
LOC: SKLAB7 13:16
DX: Z20.828 Contact with and (suspected) exposure to other viral communicable diseases (principal)

== ENCOUNTER → 2020-05-30 | Outpatient (REF) | payer MEDICARE, OTHER, MEDICAID ==
[~2020-05-30] MED LIST changes: +SIME80CH5 PO; -SIME80TA PO
== END ==
LOC: SKLAB7 05-29 14:47 → EDSTATUS 07-05 15:15
DX: Z20.828 Contact with and (suspected) exposure to other viral communicable diseases (principal)

== ENCOUNTER → 2020-05-31 | Outpatient (REF) | payer MEDICARE, OTHER, MEDICAID ==
[~2020-05-31] MED LIST changes: -SIME80CH5 PO; +SIME80TA PO
[2020-05-31 11:45] LABS: CALCIUM LEVEL 8.4 MG/DL (8.8-10.2); CREATININE FOR GFR 1.11 MG/DL (0.55-1.30); GLOMERULAR FILTRATION RATE 49.9 (>32); POTASSIUM SERUM 4.3 MEQ/L (3.5-5.1)
== END ==
LOC: SKLAB7 07:00
DX: J44.9 Chronic obstructive pulmonary disease, unspecified (principal)

== ENCOUNTER → 2020-06-02 | Outpatient (REF) | payer MEDICARE, OTHER, MEDICAID ==
--- NOTE | 2020-06-02 05:47 | REPVR ---
PROCEDURE INFORMATION: Exam: XR Chest, 1 View Exam date and time: 06/02/2020 5:10 AM Age: 84 years old Clinical indication: Other: Fever cough; Additional info: Fever/cough TECHNIQUE: Imaging protocol: XR of the chest Views: 1 view. COMPARISON: AR Chest, 1 view 09/29/2019 2:47 PM FINDINGS: Lungs: There is bilateral lower lung zones infiltrates and or atelectasis. Pleural space: Unremarkable. No pleural effusion. No pneumothorax. Heart/Mediastinum: The heart is enlarged. Bones/joints: There is significant bilateral, left more than right shoulder joint DJD. Lower thoracic spine osteophytes seen. IMPRESSION: Bilateral lower lung zones infiltrates and/or atelectatic changes. Follow-up to resolution is suggested . Electronically signed by: Reynaldo Wood On 06/02/2020 05:46:43 AM
== END ==
LOC: SKLAB7 04:18
DX: R91.8 Other nonspecific abnormal finding of lung field (principal); R50.9 Fever, unspecified; R05 Cough

== ENCOUNTER → 2020-06-06 | Outpatient (REF) | payer MEDICARE, OTHER, MEDICAID ==
[~2020-06-06] MED LIST changes: +SIME80CH5 PO; -SIME80TA PO
== END ==
LOC: SKLAB7 08:00
PROVIDERS: ATTEND Internal Medicine
DX: Z20.828 Contact with and (suspected) exposure to other viral communicable diseases (principal)

== ENCOUNTER → 2020-06-11 | Outpatient (REF) | payer MEDICARE, OTHER, MEDICAID ==
[~2020-06-11] MED LIST changes: -SIME80CH5 PO; +SIME80TA PO
[2020-06-11 14:48] LABS: HEMATOCRIT 40.5 % (36.0-47.0); HEMOGLOBIN 12.4 g/dl (12.0-15.5); MEAN CORPUSCULAR HEMOGLOBIN 27.9 pg (27.0-33.0); MEAN CORPUSCULAR HGB CONC 30.6 g/dl (32.0-36.5); MEAN CORPUSCULAR VOLUME 91.2 fl (80.0-96.0); PLATELET COUNT, AUTOMATED 354 10^3/uL (150-450); RED BLOOD COUNT 4.44 10^6/uL (4.00-5.40); WHITE BLOOD COUNT 15.1 10^3/uL (4.0-10.0)
[2020-06-11 15:13] LABS: C REACTIVE PROTEIN QUANTITATIV 0.52 MG/DL (0.00-0.30); CALCIUM LEVEL 8.7 MG/DL (8.8-10.2); CREATININE FOR GFR 1.51 MG/DL (0.55-1.30); POTASSIUM SERUM 5.6 MEQ/L (3.5-5.1)
[2020-06-11 15:17] LABS: ERYTHROCYTE SEDIMENTATION RATE 19 mm/hr (0-30)
== END ==
LOC: SKLAB7 13:15
PROVIDERS: ATTEND Internal Medicine Nephrology
DX: R91.8 Other nonspecific abnormal finding of lung field (principal); R05 Cough; R09.81 Nasal congestion

== ENCOUNTER → 2020-06-11 | Outpatient (REF) | payer MEDICARE, OTHER, MEDICAID ==
--- NOTE | 2020-06-11 16:45 | REP ---
INDICATION: COUGH/CONGESTION. COMPARISON: Comparison chest x-ray June 02, 2020.. TECHNIQUE: Portable upright AP radiograph. FINDINGS: An azygos lobe is noted incidentally. The patient is rotated slightly to the left for the current exposure. Previously noted right base infiltrate is no longer apparent. The infiltrate noted previously in the left base is improved as well. No new infiltrate is seen. IMPRESSION: Improvement noted in the left base infiltrate since the June 02, 2020 study. The previously noted right base infiltrate is no longer apparent. No new infiltrate is seen. Azygos lobe. <Electronically signed by Josias Ovalle > 06/11/20 [id number]
== END ==
LOC: SKLAB7 16:16
PROVIDERS: ATTEND Internal Medicine Nephrology
DX: R91.8 Other nonspecific abnormal finding of lung field (principal); R05 Cough; R09.81 Nasal congestion

== ENCOUNTER → 2020-06-13 | Outpatient (REF) | payer MEDICARE, OTHER, MEDICAID ==
[~2020-06-13] MED LIST changes: +SIME80CH5 PO; -SIME80TA PO
== END ==
LOC: SKLAB7 08:00
PROVIDERS: ATTEND Internal Medicine
DX: Z20.828 Contact with and (suspected) exposure to other viral communicable diseases (principal)

== ENCOUNTER → 2020-06-13 | Outpatient (REF) | payer MEDICARE, OTHER, MEDICAID ==
[~2020-06-13] MED LIST changes: -SIME80CH5 PO; +SIME80TA PO
== END ==
LOC: SKLAB7 00:20
DX: R05 Cough (principal); R09.89 Other specified symptoms and signs involving the circulatory and respiratory systems

== ENCOUNTER → 2020-06-16 | Outpatient (REF) | payer MEDICARE, OTHER, MEDICAID ==
[~2020-06-16] MED LIST changes: +SIME80CH5 PO; -SIME80TA PO
== END ==
LOC: SKLAB7 08:00
PROVIDERS: ATTEND Internal Medicine
DX: Z20.828 Contact with and (suspected) exposure to other viral communicable diseases (principal)

== ENCOUNTER → 2020-06-20 | Outpatient (REF) | payer MEDICARE, OTHER, MEDICAID ==
[~2020-06-20] MED LIST changes: -SIME80CH5 PO; +SIME80TA PO
--- NOTE | 2020-06-21 10:53 | SKHPN ---
[facility] Progress Note Date of Service/Time Date: Jun 21, 2020 Progress Note SUBJECTIVE: Resident seen by purchasing internship and Dr. Malhotra on 06/21/2020. Ms. Moe was seen for continued care today at the [facility]. Per nursing staff, she is doing well on the current Prednisone dose of 10mg which we previously had decreased but had to increase after the pneumonia. Nursing staff has not administered additional DUONEB treatments in addition to the treatments already scheduled three times a day. She has not had any falls. She remains on a diet consisting of regular level 4 for solids, thin liquids or pills and pured assistance as needed. Her intertriginous rash under her breasts has improved according to the nursing staff and they have been requested to continue to apply Gold Hernandez powder, while discouraging the patient from wearing her bra. Pt complains of musculoskeletal pain in her left shoulder that decreases her range of motion, consistent with her examination from last month. Patient is not a candidate for lower-level care due to intermittent breathing problems and cognitive dysfxn. Her advanced directives indicate no resuscitation, limited medical interventions, no intubation hospitalization if necessary, and no feeding tubes, but she will accept a trial of IV fluids. MOLST form has been reviewed by Dr. Malhotra on 04/20/2020. Medication list was reviewed: DuoNeb 0.5 mg3 mg/3 mL as directed 3 times per day Famotidine 20 mg daily Multivitamin daily Breo Ellipta (fluticasone furoatevilanterol) 77122 micrograms/dose 1 puff inhaled daily. Aspirin 81 mg delayed release daily. Furosemide 40 mg daily Sertraline 150 mg daily. Xarelto 15 mg daily Potassium chloride 40 milliequivalents daily. Acetaminophen 325 mg 2 tablets twice a day Cardizem 60 mg 3 times daily. Special instructions: Hold if systolic blood pressure less than 110 if heart rate less than 80. Diclofenac 1% topical 2 times daily, apply to neck and left shoulder. Prednisone 10 mg daily. Tylenol 325 mg 2 tablets every 4 hours acetaminophen suppository 650 mg as needed every 4 hours Dulcolax 10 mg 1 suppository per rectum as needed daily. Enema 197 gram/118 mL, 1 unit per rectum as needed 1 time daily. Milk of magnesia suspension 400 mg/5 mL, 10 mL by mouth as needed Albuterol sulfate 2.5 mg/3 mL one nebulizer as needed every 4 hours. Dimethicone tablet, chewable 80 mg as needed 4 times daily Guaifenesin 100 mg/5 mL: 10 mL by mouth every 6 hours. OBJECTIVE: PHYSICAL EXAMINATION: VITAL SIGNS: Please see below. GENERAL: She appears in no acute distress and was alert and cooperative. She was pleasant today and answered medical questions and concerns appropriately today. HEENT: No facial weakness or rhinorrhea or neck masses appreciated. CARDIOVASCULAR: Irregularly irregular rate and rhythm, rate controlled. No JVD, no murmurs, rubs or gallops. LUNGS: Pt has a wet cough during medical interview, but has quiet and clear respirations ABDOMINAL: Soft, nontender EXTREMITIES: Minimal pitting edema in lower extremities, no rigidity appreciated. There is limited range of motion of left shoulder with abduction, unchanged from last exam. LABORATORY DATA: Please see below. IMAGING: Pulmonary Function Test: DATE OF SERVICE: 11/19/16 SPIROMETRY: Pre and post bronchodilator study of excellent technical quality. The forced vital capacity is severely reduced. The FEV1 is out of proportion. The obstructive index is, therefore, reduced. Significant underlying obstructive ventilatory defect with a significant bronchodilator response. Air trapping is suspected. A full study had been recommended, but the patient was unable to perform the required maneuvers. Riky Massey MD 11/19/16 9832 DVT prophylaxis: pt is on Xarelto 15mg daily. ASSESSMENT/PLAN: Upper Respiratory Infection: Pt's lung exam elicits improvement in clearance of respiratory tract. Pt's procalcitonin came back within normal levels, therefore, after antibiotic regimen was complete, we did not need to investigate further to start another antibiotics. Atrial fibrillation, rate well-controlled. Continue Diltiazem to 60mg three times daily due to fluctuations in BP, Pt is anticoagulated on Xarelto 15 mg. Okay to administer Xarelto during the day, since nursing staff is overwhelmed du ring the night. Rate controlled on Cardizem. Dementia with paranoia, stable. Paranoia not evident today. Controlled without psychotropic drug administration. COPD: Pt is coughing today during the medical interview. Physical exam shows that her lungs have cleared. Due to the cough, will continue the increased dose of 10mg prednisone daily. Continue DuoNeb treatments three times daily. Continue Breo Ellipta at current dosing. Suspect asthma component after reviewing prior PFTs as listed above. Diastolic Dysfunction: continue furosemide 40 mg daily, reviewed Echocardiogram done by Dr. Em in 2015. Pt's LVEF:70% as of 2014. GERD: Continue Pepcid 20mg daily. Dementia/depression: continue Zoloft 150 mg. Pt's mood is improved during this visit. Osteoarthritis, stable. Anemia: pt's CBC is stable. Will continue to monitor CBC [id number] due to prior intermittent vaginal bleeding. Pt's son, the HCP is aware of possible chief development officer malignancy, conservative Rx for now. Osteoporosis risk: Pt does not have prior fractures listed in chart. However, she is now an osteoporosis risk due to chronic prednisone therapy. Prior to reduction in March, her prednisone dose was 10mg. Doses of higher than 7.5mg have been shown to lead to osteoporosis and linked to fractures. Therefore, alendronate, a bisphosphonate will be continued. Dr. Malhotra was physically present during the encounter and was fully rafael ilable. All aspects of the patient interview, examination, medical decision- making, and medical care plan. The faculty preceptor is aware and concurs with the plan as stated in this note and will attest to such by his cosignature. Allergies Coded Allergies: ciprofloxacin (Verified Allergy, Unknown, UNKNOWN, 06/25/19) haloperidol (Verified Allergy, Unknown, UNKNOWN, 06/25/19) propoxyphene (Verified Allergy, Unknown, UNKNOWN, 06/25/19) VS, I&O, 24H, Fishbone Laboratory Data Microbiology Microbiology 06/20/20 Coronavirus COVID-19 PCR ([facility]), Received Pending Jonathan Nam DO Jun 21, 2020 10:53
== END ==
LOC: SKLAB7 08:47
DX: Z20.828 Contact with and (suspected) exposure to other viral communicable diseases (principal)

== ENCOUNTER → 2020-06-27 | Outpatient (REF) | payer MEDICARE, OTHER, MEDICAID | LOC: SKLAB7 07:00 | DX: Z20.828 Contact with and (suspected) exposure to other viral communicable diseases (principal) ==

== ENCOUNTER → 2020-07-04 | Outpatient (REF) | payer MEDICARE, OTHER, MEDICAID | LOC: SKLAB7 07:00 | DX: Z20.828 Contact with and (suspected) exposure to other viral communicable diseases (principal) ==

== ENCOUNTER → 2020-07-11 | Outpatient (REF) | payer MEDICARE, OTHER, MEDICAID | LOC: SKLAB7 09:11 | DX: Z20.828 Contact with and (suspected) exposure to other viral communicable diseases (principal) ==

== ENCOUNTER → 2020-07-18 | Outpatient (REF) | payer MEDICARE, OTHER, MEDICAID ==
--- NOTE | 2020-07-17 18:53 | SKHPN ---
[facility] Progress Note Date of Service/Time Date: Jul 17, 2020 Progress Note SUBJECTIVE: Resident seen by internet marketing assistant and Dr. Malhotra on 07/19/2019. Ms. Moe was seen for continued care today at the [facility]. Pt remains stable with no new complaints. Per nursing staff, she is doing well on the current Prednisone dose of 10mg which we previously had decreased but had to increase after the pneumonia. She has not had any falls. She remains on a diet consisting of regular level 4 for solids, thin liquids or pills and pured assistance as needed. Her intertriginous rash under her breasts has improved and order is continued to apply Gold Hernandez powder, while discouraging the patient from wearing her bra. Pt complains of musculoskeletal pain in her left shoulder that decreases her range of motion, consistent with her examination from last month. Pt has had intermittent uterine bleeding in the recent past, but nursing staff and patient have not reported any uterine bleeding for the past month. Patient is not a candidate for lower-level care due to intermittent breathing p roblems and cognitive dysfxn. Her advanced directives indicate no resuscitation, limited medical interventions, no intubation hospitalization if necessary, and no feeding tubes, but she will accept a trial of IV fluids. MOLST form has been reviewed by Dr. Malhotra on 04/20/2020. Medication list was reviewed: DuoNeb 0.5 mg3 mg/3 mL as directed 3 times per day Famotidine 20 mg daily Multivitamin daily Breo Ellipta (fluticasone furoatevilanterol) 38479 micrograms/dose 1 puff inhaled daily. Aspirin 81 mg delayed release daily. Furosemide 40 mg daily Sertraline 150 mg daily. Xarelto 15 mg daily Potassium chloride 40 milliequivalents daily. Acetaminophen 325 mg 2 tablets twice a day Cardizem 60 mg 3 times daily. Special instructions: Hold if systolic blood p ressure less than 110 if heart rate less than 80. Diclofenac 1% topical 2 times daily, apply to neck and left shoulder. Prednisone 10 mg daily. Tylenol 325 mg 2 tablets every 4 hours acetaminophen suppository 650 mg as needed every 4 hours Dulcolax 10 mg 1 suppository per rectum as needed daily. Enema 197 gram/118 mL, 1 unit per rectum as needed 1 time daily. Milk of magnesia suspension 400 mg/5 mL, 10 mL by mouth as needed Albuterol sulfate 2.5 mg/3 mL one nebulizer as needed every 4 hours. Dimethicone tablet, chewable 80 mg as needed 4 times daily Guaifenesin 100 mg/5 mL: 10 mL by mouth every 6 hours. OBJECTIVE: PHYSICAL EXAMINATION: VITAL SIGNS: Please see below. GENERAL: She appears in no acute distress and was alert and cooperative. She was pleasant today and answered medical questions and concerns appropriately today. HEENT: No facial weakness or rhinorrhea or neck masses appreciated. CHEST: bruise on left breast. CARDIOVASCULAR: Irregularly irregular rate and rhythm, rate controlled. No JVD, no murmurs, rubs or gallops. LUNGS: Pt has a wet cough during medical interview, but has quiet and clear respirations ABDOMINAL: Soft, nontender EXTREMITIES: Minimal pitting edema in lower extremities, no rigidity appreciated. There is limited range of motion of left shoulder with abduction, unchanged from last exam. LABORATORY DATA: Please see below. IMAGING: Pulmonary Function Test: DATE OF SERVICE: 11/19/16 SPIROMETRY: Pre and post bronchodilator study of excellent technical quality. The forced vital capacity is severely reduced. The FEV1 is out of proportion. The obstructive index is, therefore, reduced. Significant underlying obstructive ventilatory defect with a significant bronchodilator response. Air trapping is suspected. A full study had been recommended, but the patient was unable to perform the required maneuvers. Riky Massey MD 11/19/16 1573 ASSESSMENT/PLAN: Upper Respiratory Infection: Pt's lung exam elicits improvement in clearance of respiratory tract. Continue current prednisone dosing at 10 mg daily. Uterine Bleeding: Pt is being followed for intermittent uterine bleeding that first presented a few months ago. She has not had uterine bleeding for the past month, but staffing will continue to monitor. Atrial fibrillation, rate well-controlled. Continue Diltiazem to 60mg three times daily due to fluctuations in BP, hold if systolic blood pressure less than 110 if heart rate less than 80. Pt is anticoagulated on Xarelto 15 mg. Okay to administer Xarelto during the day, since nursing staff is overwhelmed during the night. Rate controlled on Cardizem. Dementia with paranoia, stable. Paranoia not evident today. Controlled without psychotropic drug administration. COPD: Pt is no longer coughing. Physical exam shows that her lungs have cleared. Continue prednisone at 10mg, continue DuoNeb treatments three times daily. Continue Breo Ellipta at current dosing. Suspect asthma component after reviewing prior PFTs as listed above. Diastolic Dysfunction: continue furosemide 40 mg daily, reviewed Echocardiogram done by Dr. Em in 2014. Pt's LVEF:70% as of 2014. GERD: Continue Pepcid 20mg daily. Dementia/depression: continue Zoloft 150 mg. Pt's mood is improved during this visit. Osteoarthritis: stable. Anemia: pt's CBC is stable. Will continue to monitor CBC [id number] due to prior intermittent vaginal bleeding. Pt's son, the HCP is aware of possible mold operator malignancy, conservative Rx for now. Osteoporosis risk: Pt does not have prior fractures listed in chart. However, she is now an osteoporosis risk due to chronic prednisone therapy. Prior to reduction in March, her prednisone dose was 10mg. Doses of higher than 7.5mg have been shown to lead to osteoporosis and linked to fractures. Therefore, alendronate, a bisphosphonate will be continued. Dr. Malhotra was physically present during the encounter and was fully available. All aspects of the patient interview, examination, medical decision- making, and medical care plan. The faculty preceptor is aware and concurs with the plan as stated in this note and will attest to such by his cosignature. Allergies Coded Allergies: ciprofloxacin (Verified Allergy, Unknown, UNKNOWN, 06/25/19) haloperidol (Verified Allergy, Unknown, UNKNOWN, 06/25/19) propoxyphene (Verified Allergy, Unknown, UNKNOWN, 06/25/19) Jonathan Nam DO Jul 17, 2020 18:53
== END ==
LOC: SKLAB7 15:08
PROVIDERS: ATTEND Internal Medicine
DX: Z11.52 Encounter for screening for COVID-19 (principal)

== ENCOUNTER → 2020-07-25 | Outpatient (REF) | payer MEDICARE, OTHER, MEDICAID ==
[~2020-07-25] MED LIST changes: +SIME80CH5 PO; -SIME80TA PO
== END ==
LOC: SKLAB7 07:00
PROVIDERS: ATTEND Internal Medicine
DX: Z20.822 Contact with and (suspected) exposure to COVID-19 (principal)

== ENCOUNTER → 2020-08-01 | Outpatient (REF) | payer MEDICARE, OTHER, MEDICAID | LOC: SKLAB7 13:43 | PROVIDERS: ATTEND Internal Medicine | DX: Z20.822 Contact with and (suspected) exposure to COVID-19 (principal) ==

== ENCOUNTER → 2020-08-08 | Outpatient (REF) | payer MEDICARE, OTHER, MEDICAID | LOC: SKLAB7 10:38 | PROVIDERS: ATTEND Internal Medicine | DX: Z20.822 Contact with and (suspected) exposure to COVID-19 (principal) ==

== ENCOUNTER → 2020-08-15 | Outpatient (REF) | payer MEDICARE, OTHER, MEDICAID ==
[~2020-08-15] MED LIST changes: -SIME80CH5 PO; +SIME80TA PO
--- NOTE | 2020-08-15 20:27 | SKHPN ---
[facility] Progress Note Date of Service/Time Date: Aug 16, 2020 Progress Note SUBJECTIVE: Resident seen by international accountant and Dr. Farfan on 08/16/2019. Ms. Moe was seen for continued care today at the [facility]. Pt remains stable with no new complaints. Per nursing staff, she is doing well on the current Prednisone dose of 10mg which we previously had decreased but had to increase after the pneumonia. She has not had any falls. She remains on a diet consisting of regular level 4 for solids, thin liquids or pills and pured assistance as needed. Her intertriginous rash under her breasts has improved and order is continued to apply Gold Hernandez powder, while discouraging the patient from wearing her bra. Pt complains of musculoskeletal pain in her left shoulder that decreases her range of motion, consistent with her examination from last month. Pt has had intermittent uterine bleeding in the recent past, but nursing staff and patient have not reported any uterine bleeding for the past month. Patient is not a candidate for lower-level care due to intermittent breathing p roblems and cognitive dysfxn. Her advanced directives indicate no resuscitation, limited medical interventions, no intubation hospitalization if necessary, and no feeding tubes, but she will accept a trial of IV fluids. MOLST form has been reviewed by Dr. Farfan on 04/20/2020. Medication list was reviewed: DuoNeb 0.5 mg3 mg/3 mL as directed 3 times per day Famotidine 20 mg daily Multivitamin daily Breo Ellipta (fluticasone furoatevilanterol) 34375 micrograms/dose 1 puff inhaled daily. Aspirin 81 mg delayed release daily. Furosemide 40 mg daily Sertraline 150 mg daily. Xarelto 15 mg daily Potassium chloride 40 milliequivalents daily. Acetaminophen 325 mg 2 tablets twice a day Cardizem 60 mg 3 times daily. Special instructions: Hold if systolic blood p ressure less than 110 if heart rate less than 80. Diclofenac 1% topical 2 times daily, apply to neck and left shoulder. Prednisone 10 mg daily. Tylenol 325 mg 2 tablets every 4 hours acetaminophen suppository 650 mg as needed every 4 hours Dulcolax 10 mg 1 suppository per rectum as needed daily. Enema 197 gram/118 mL, 1 unit per rectum as needed 1 time daily. Milk of magnesia suspension 400 mg/5 mL, 10 mL by mouth as needed Albuterol sulfate 2.5 mg/3 mL one nebulizer as needed every 4 hours. Dimethicone tablet, chewable 80 mg as needed 4 times daily Guaifenesin 100 mg/5 mL: 10 mL by mouth every 6 hours. OBJECTIVE: PHYSICAL EXAMINATION: VITAL SIGNS: Please see below. GENERAL: She appears in no acute distress and was alert and cooperative. She was pleasant today and answered medical questions and concerns appropriately today. HEENT: No facial weakness or rhinorrhea or neck masses appreciated. CARDIOVASCULAR: Irregularly irregular rate and rhythm, rate controlled. No JVD, no murmurs, rubs or gallops. LUNGS: Pt no longer has a wet cough during medical interview, and has quiet and clear respirations. ABDOMINAL: Soft, nontender EXTREMITIES: Minimal pitting edema in lower extremities, no rigidity appreciated. There is limited range of motion of left shoulder with abduction, unchanged from last exam. LABORATORY DATA: Please see below. IMAGING: Pulmonary Function Test: DATE OF SERVICE: 11/19/16 SPIROMETRY: Pre and post bronchodilator study of excellent technical quality. The forced vital capacity is severely reduced. The FEV1 is out of proportion. The obstructive index is, therefore, reduced. Significant underlying obstructive ventilatory defect with a significant bronchodilator response. Air trapping is suspected. A full study had been recommended, but the patient was unable to perform the required maneuvers. Riky Massey MD 11/19/16 5441 ASSESSMENT/PLAN: Upper Respiratory Infection: Pt's lung exam elicits improvement in clearance of respiratory tract. Continue current prednisone dosing at 10 mg daily.Steroid and broncodilator responsive obstrictive dis Uterine Bleeding: Pt is being followed for intermittent uterine bleeding that first presented a few months ago. She has not had uterine bleeding for the past two months, but staffing will continue to monitor. Atrial fibrillation, rate well-controlled. Continue Diltiazem to 60mg three times daily . Pt is anticoagulated on Xarelto 15 mg. Okay to administer Xarelto during the day, since nursing staff is overwhelmed during the night. Rate controlled on Cardizem. Dementia with paranoia, stable. Paranoia not evident today. Controlled without psychotropic drug administration. COPD/Asthma Pt is no longer coughing. Physical exam shows that her lungs have cleared. Continue prednisone at 10mg, continue DuoNeb treatments three times daily. Continue Breo Ellipta at current dosing. Suspect asthma component after reviewing prior PFTs as listed above. Diastolic Dysfunction: continue furosemide 40 mg daily, reviewed Echocardiogram done by Dr. Em in 2014. Pt's LVEF:70% as of 2014. GERD: Continue Pepcid 20mg daily. Dementia/depression: continue Zoloft 150 mg. Pt's mood is improved during this visit. Osteoarthritis: stable. Anemia: pt's CBC is stable. Will continue to monitor CBC [id number] due to prior intermittent vaginal bleeding. Pt's son, the HCP is aware of possible obgyn specialist malignancy, conservative Rx for now. Osteoporosis risk: Pt does not have prior fractures listed in chart. However, she is now an osteoporosis risk due to chronic prednisone therapy. Prior to red uction in March, her prednisone dose was 10mg. Doses of higher than 7.5mg have been shown to lead to osteoporosis and linked to fractures. Therefore, alendronate, a bisphosphonate will be continued. Dr. Farfan was physically present during the encounter and was fully available. All aspects of the patient interview, examination, medical decision- making, and medical care plan. The faculty preceptor is aware and concurs with the plan as stated in this note and will attest to such by his cosignature. Allergies Coded Allergies: ciprofloxacin (Verified Allergy, Unknown, UNKNOWN, 06/25/19) haloperidol (Verified Allergy, Unknown, UNKNOWN, 06/25/19) propoxyphene (Verified Allergy, Unknown, UNKNOWN, 06/25/19) VS, I&O, 24H, Fishbone Laboratory Data Microbiology Microbiology 08/15/20 Coronavirus COVID-19 PCR ([facility]), Received Pending Jonathan Nam DO Aug 15, 2020 16:34 Bryanna Farfan DO Aug 16, 2020 12:59
== END ==
LOC: SKLAB7 15:03
PROVIDERS: ATTEND Internal Medicine
DX: Z20.822 Contact with and (suspected) exposure to COVID-19 (principal)

== ENCOUNTER → 2020-08-22 | Outpatient (REF) | payer MEDICARE, OTHER, MEDICAID ==
[~2020-08-22] MED LIST changes: +SIME80CH5 PO; -SIME80TA PO
== END ==
LOC: SKLAB7 11:14
PROVIDERS: ATTEND Internal Medicine
DX: Z20.822 Contact with and (suspected) exposure to COVID-19 (principal)

== ENCOUNTER → 2020-08-27 | Outpatient (REF) | payer MEDICARE, OTHER, MEDICAID ==
[2020-08-27 10:42] LABS: HEMATOCRIT 39.2 % (36.0-47.0); HEMOGLOBIN 12.3 g/dl (12.0-15.5); MEAN CORPUSCULAR HEMOGLOBIN 28.7 pg (27.0-33.0); MEAN CORPUSCULAR HGB CONC 31.4 g/dl (32.0-36.5); MEAN CORPUSCULAR VOLUME 91.6 fl (80.0-96.0); PLATELET COUNT, AUTOMATED 235 10^3/uL (150-450); RED BLOOD COUNT 4.28 10^6/uL (4.00-5.40); WHITE BLOOD COUNT 10.6 10^3/uL (4.0-10.0)
== END ==
LOC: SKLAB7 09:59
DX: N93.9 Abnormal uterine and vaginal bleeding, unspecified (principal)

== ENCOUNTER → 2020-08-28 | Outpatient (REF) | payer MEDICARE, OTHER, MEDICAID ==
[2020-08-28 13:22] LABS: CALCIUM LEVEL 8.6 MG/DL (8.8-10.2); CREATININE FOR GFR 1.18 MG/DL (0.55-1.30); GLOMERULAR FILTRATION RATE 46.3 (>32); POTASSIUM SERUM 4.5 MEQ/L (3.5-5.1)
== END ==
LOC: SKLAB7 11:18
DX: N93.9 Abnormal uterine and vaginal bleeding, unspecified (principal)

== ENCOUNTER → 2020-08-29 | Outpatient (REF) | payer MEDICARE, OTHER, MEDICAID | LOC: SKLAB7 09:58 | PROVIDERS: ATTEND Internal Medicine | DX: Z11.52 Encounter for screening for COVID-19 (principal) ==

== ENCOUNTER → 2020-08-31 | Outpatient (REF) | payer MEDICARE, OTHER, MEDICAID ==
[2020-08-31 11:35] LABS: CALCIUM LEVEL 8.6 MG/DL (8.8-10.2); CREATININE FOR GFR 1.15 MG/DL (0.55-1.30); GLOMERULAR FILTRATION RATE 47.7 (>32); POTASSIUM SERUM 4.1 MEQ/L (3.5-5.1)
== END ==
LOC: SKLAB7 09:37
DX: I50.9 Heart failure, unspecified (principal)

== ENCOUNTER → 2020-09-05 | Outpatient (REF) | payer MEDICARE, OTHER, MEDICAID | LOC: SKLAB7 14:46 | PROVIDERS: ATTEND Internal Medicine | DX: Z20.822 Contact with and (suspected) exposure to COVID-19 (principal) ==

== ENCOUNTER → 2020-09-07 | Outpatient (REF) | payer MEDICARE, OTHER, MEDICAID ==
[2020-09-07 08:08] LABS: HEMATOCRIT 40.8 % (36.0-47.0); HEMOGLOBIN 12.7 g/dl (12.0-15.5); MEAN CORPUSCULAR HEMOGLOBIN 28.6 pg (27.0-33.0); MEAN CORPUSCULAR HGB CONC 31.1 g/dl (32.0-36.5); MEAN CORPUSCULAR VOLUME 91.9 fl (80.0-96.0); PLATELET COUNT, AUTOMATED 218 10^3/uL (150-450); RED BLOOD COUNT 4.44 10^6/uL (4.00-5.40); WHITE BLOOD COUNT 9.5 10^3/uL (4.0-10.0)
== END ==
LOC: SKLAB7 08:00
DX: N93.9 Abnormal uterine and vaginal bleeding, unspecified (principal)

== ENCOUNTER → 2020-09-19 | Outpatient (REF) | payer MEDICARE, OTHER, MEDICAID ==
--- NOTE | 2020-09-19 15:08 | SKHPN ---
[facility] Progress Note Date of Service/Time Date: Sep 20, 2020 Progress Note SUBJECTIVE: Resident seen by internet marketing specialist and Dr. Farfan on 09/21/2019. Ms. Moe was seen for continued care today at the [facility]. Pt remains stable with no new complaints. Per nursing staff, she is doing well on the current Prednisone dose of 10mg (which we previously had decreased but had to increase after the pneumonia.) She has not had any falls. She remains on a diet consisting of regular level 4 for solids, thin liquids or pills and pured assistance as needed. Her intertriginous rash under her breasts has improved and order is continued to apply Gold Hernandez powder, while discouraging the patient from wearing her bra. Pt complains of musculoskeletal pain in her left shoulder that decreases her range of motion, consistent with her examination from last month. Pt has had intermittent uterine bleeding in the recent past, and nursing staff reports another couple episodes in the past week. Again in discussion with HCP we are following with wait and see approach with the expectation this represents uterine cancer.They report no significant blood loss and no changes in vital signs at this time. Patient is not a candidate for lower-level care due to intermittent breathing problems and cognitive dysfxn. Her advanced directives indicate no resuscitation, limited medical interventions, no intubation hospitalization if necessary, and no feeding tubes, but she will accept a trial of IV fluids. MOLST form has been reviewed by Dr. Farfan on 04/20/2020./2 Medication list was reviewed: DuoNeb 0.5 mg3 mg/3 mL as directed 3 times per day Famotidine 20 mg daily Multivitamin daily Breo Ellipta (fluticasone furoatevilanterol) 46908 micrograms/dose 1 puff inhaled daily. Aspirin 81 mg delayed release daily. Furosemide 40 mg daily Sertraline 150 mg daily. Xarelto 15 mg daily Potassium chloride 40 milliequivalents daily. Acetaminophen 325 mg 2 tablets twice a day Cardizem 60 mg 3 times daily. Diclofenac 1% topical 2 times daily, apply to neck and left shoulder. Prednisone 10 mg daily. Tylenol 325 mg 2 tablets every 4 hours acetaminophen suppository 650 mg as needed every 4 hours Dulcolax 10 mg 1 suppository per rectum as needed daily. Enema 197 gram/118 mL, 1 unit per rectum as needed 1 time daily. Milk of magnesia suspension 400 mg/5 mL, 10 mL by mouth as needed Albuterol sulfate 2.5 mg/3 mL one nebulizer as needed every 4 hours. Dimethicone tablet, chewable 80 mg as needed 4 times daily Guaifenesin 100 mg/5 mL: 10 mL by mouth every 6 hours. Alendronate 70mg qweek OBJECTIVE: PHYSICAL EXAMINATION: VITAL SIGNS: Please see below. GENERAL: She appears in no acute distress and was alert and cooperative. She was pleasant today and answered medical questions and concerns appropriately today. HEENT: No facial weakness or rhinorrhea or neck masses appreciated. CARDIOVASCULAR: Irregularly irregular rate and rhythm, rate controlled. No JVD, no murmurs, rubs or gallops. (On examination, borderline tachycardia with pulse at 100.) LUNGS: Pt no longer has a wet cough during medical interview, and has quiet and clear respirations. ABDOMINAL: Soft, nontender EXTREMITIES: Minimal pitting edema in lower extremities, no rigidity appreciated. There is limited range of motion of left shoulder with abduction, unchanged from last exam. Integumentary: mild erythema in intertriginous area under breasts, well-managed with powder and there is no irritation or tenderness at this time. LABORATORY DATA: Please see below. IMAGING: Pulmonary Function Test: DATE OF SERVICE: 11/19/16 SPIROMETRY: Pre and post bronchodilator study of excellent technical quality. The forced vital capacity is severely reduced. The FEV1 is out of proportion. The obstructive index is, therefore, reduced. Significant underlying obstructive ventilatory defect with a significant bronchodilator response. Air trapping is suspected. A full study had been recommended, but the patient was unable to perform the required maneuvers. Riky Massey MD 11/19/16 9040 ASSESSMENT/PLAN: Steroid responsive asthma Pt's lung exam elicits improvement in clearance of respiratory tract. Continue current prednisone dosing at 10 mg daily.Steroid and broncodilator responsive obstrictive dis Uterine Bleeding: Pt is being followed for intermittent uterine bleeding that first presented a few months ago. She had another episode of uterine bleeding over the weekend, staffing will continue to monitor. CBC check is q3 months at this time due to stable vital signs and unchanged physical exam. Atrial fibrillation, rate well-controlled: Continue Diltiazem to 60mg three times daily, sure parameters.(Pt's pulse was high at time of exam, No adjustment made at this time. Pt is anticoagulated on Xarelto 15 mg. Okay to administer Xarelto during the day, since nursing staff is overwhelmed during the night. Rate-controlled on Cardizem. Dementia with paranoia, stable. Paranoia not evident today. Controlled without psychotropic drug administration. COPD/Asthma Pt is no longer coughing. Physical exam shows that her lungs have cleared. Continue prednisone at 10mg, continue DuoNeb treatments three times daily. Continue Breo Ellipta at current dosing. Suspect asthma component after reviewing prior PFTs as listed above. Diastolic Dysfunction: continue furosemide 40 mg daily, reviewed Echocardiogram done by Dr. Em in 2014. Pt's LVEF:70% as of 2014. BMP checks will be [id number], last BMP from 08/31/20 showed no abnormalities to consider. GERD: Continue Pepcid 20mg daily. Dementia/depression: continue Zoloft 150 mg. Pt's mood is improved during this visit. Osteoarthritis: stable. Anemia: pt's CBC is stable. Will continue to monitor CBC [id number] due to prior intermittent vaginal bleeding. Pt's son, the HCP is aware of possible dining room attendant malignancy, conservative Rx for now. Osteoporosis risk: Pt does not have prior fractures listed in chart. However, she is now an osteoporosis risk due to chronic prednisone therapy. Prior to reduction in March, her prednisone dose was 10mg. Doses of higher than 7.5mg have been shown to lead to osteoporosis and linked to fractures. Therefore, a lendronate, a bisphosphonate will be continued. Dr. Farfan was physically present during the encounter and was fully availa ble. All aspects of the patient interview, examination, medical decision-making, and medical care plan. The faculty preceptor is aware and concurs with the plan as stated in this note and will attest to such by his cosignature. Allergies Coded Allergies: ciprofloxacin (Verified Allergy, Unknown, UNKNOWN, 06/25/19) haloperidol (Verified Allergy, Unknown, UNKNOWN, 06/25/19) propoxyphene (Verified Allergy, Unknown, UNKNOWN, 06/25/19) GME ATTESTATION My faculty preceptor for this patient encounter was physically present during the encounter and was fully available. All aspects of the patient interview, examination, medical decision making process, and medical care plan development were reviewed and approved by the faculty preceptor. The faculty preceptor is aware and concurs with the plan as stated in the body of this note and will attest to such by his/her cosignature. VS, I&O, 24H, [place] Laboratory Data Microbiology Microbiology 09/19/20 Coronavirus COVID-19 PCR ([facility]), Received Pending Jonathan Nam DO Sep 19, 2020 15:08 Bryanna Farfan DO Sep 20, 2020 10:45
== END ==
LOC: SKLAB7 10:42
PROVIDERS: ATTEND Internal Medicine
DX: Z20.822 Contact with and (suspected) exposure to COVID-19 (principal)

== ENCOUNTER → 2020-09-26 | Outpatient (REF) | payer MEDICARE, OTHER, MEDICAID | LOC: SKLAB7 12:43 | PROVIDERS: ATTEND Internal Medicine | DX: Z20.822 Contact with and (suspected) exposure to COVID-19 (principal) ==

== ENCOUNTER → 2020-10-12 | Outpatient (REF) | payer MEDICARE, OTHER, MEDICAID | LOC: SKLAB7 20:00 | PROVIDERS: ATTEND Internal Medicine | DX: Z20.822 Contact with and (suspected) exposure to COVID-19 (principal) ==

== ENCOUNTER → 2020-10-23 | Outpatient (REF) | payer MEDICARE, OTHER, MEDICAID ==
[2020-10-23 00:14] LABS: HEMATOCRIT 25.8 % (36.0-47.0); HEMOGLOBIN 7.8 g/dl (12.0-15.5); MEAN CORPUSCULAR HEMOGLOBIN 27.4 pg (27.0-33.0); MEAN CORPUSCULAR HGB CONC 30.2 g/dl (32.0-36.5); MEAN CORPUSCULAR VOLUME 90.5 fl (80.0-96.0); PLATELET COUNT, AUTOMATED 223 10^3/uL (150-450); RED BLOOD COUNT 2.85 10^6/uL (4.00-5.40); WHITE BLOOD COUNT 8.8 10^3/uL (4.0-10.0)
== END ==
LOC: SKLAB7 10-22 23:34
DX: N93.9 Abnormal uterine and vaginal bleeding, unspecified (principal)

== ENCOUNTER → 2020-10-24 | Outpatient (REF) | payer MEDICARE, OTHER, MEDICAID ==
[2020-10-24 11:11] LABS: HEMATOCRIT 27.2 % (36.0-47.0); HEMOGLOBIN 8.1 g/dl (12.0-15.5); MEAN CORPUSCULAR HEMOGLOBIN 27.3 pg (27.0-33.0); MEAN CORPUSCULAR HGB CONC 29.8 g/dl (32.0-36.5); MEAN CORPUSCULAR VOLUME 91.6 fl (80.0-96.0); PLATELET COUNT, AUTOMATED 238 10^3/uL (150-450); RED BLOOD COUNT 2.97 10^6/uL (4.00-5.40); WHITE BLOOD COUNT 10.6 10^3/uL (4.0-10.0)
[2020-10-24 11:41] LABS: CALCIUM LEVEL 8.7 MG/DL (8.8-10.2); CREATININE FOR GFR 1.25 MG/DL (0.55-1.30); GLOMERULAR FILTRATION RATE 43.4 (>32); POTASSIUM SERUM 4.6 MEQ/L (3.5-5.1)
== END ==
LOC: SKLAB7 07:00
DX: N93.9 Abnormal uterine and vaginal bleeding, unspecified (principal)

== ENCOUNTER → 2020-10-25 | Outpatient (CLI) | payer MEDICARE, OTHER, MEDICAID ==
--- NOTE | 2020-10-25 11:29 | REP ---
INDICATION: VAGINAL BLEEDING. COMPARISON: 02/28/2020 TECHNIQUE: Transabdominal only transvaginal exam unobtainable FINDINGS: The uterus measures 5.9 x 2 x 3.8 cm. The endometrial echo complex was not visualized. Neither ovary was visualized. Urinary bladder measures 5.7 x 3.8 x 7.3 cm. A small echogenic focus of uncertain etiology was seen within the urinary bladder. No free fluid was identified. IMPRESSION: Limited exam as described above. Echogenic focus within the urinary bladder of uncertain etiology but representing a change from the prior exam. A cystolith cannot be ruled out. <Electronically signed by Luc Rodriguez > 10/25/20 [id number]
== END ==
LOC: M RAD 10:48
PROVIDERS: ATTEND Student in an Organized Health Care Education/Training Program
DX: R93.5 Abnormal findings on diagnostic imaging of other abdominal regions, including retroperitoneum (principal)

== ENCOUNTER → 2020-10-25 | Outpatient (REF) | payer MEDICARE, OTHER, MEDICAID ==
--- NOTE | 2020-10-24 19:34 | SKHPN ---
[facility] Progress Note Date of Service/Time Date: Oct 25, 2020 Progress Note SUBJECTIVE: Resident seen by wedding planning internship and Dr. Farfan on 10/25/2020. Ms. Moe was seen for continued care today at the [facility]. Pt had profuse vaginal bleeding on 10/23/20 in the brick and block mason around 1am. Her BP remained in the 90s systolic and she had tachycardia with a rate around 120. Dr. Greene, covering resident physician, held Xarelto and ASA due to Hgb being 7.8, a significant decrease from 12.7 in 08/2020. Pt remained in no acute distress through these episodes. Pt's Lasix is also on hold and pt's SBP remains in the high 80s with a high of 90 despite these changes. Pt's vaginal bleeding decreased significantly later in the day on 10/23/20 as per nursing staff. Her pulse rate remained tachycardic, although it was only mild with a HR of 107. CBC was repeated on 10/24/20 with Hgb of 8.1. Pt's HCP was called and informed about this and consent for blood transfusion was verbally done. Also discussed course of treatment with HCP which includes emergency communications operator referral at this time. Pelvic U/S will be done today, 10/25/20 in preparation for gynecology visit: scheduled appt with Dr. Cevallos, bay stocker on 10/26/20. Pt also complained of constipation and did not have bowel movement on 10/23/20, for which Senna 2x 8.6 mg tablets were administered once. Pt reports that she is feeling better and has had a bowel movement. Per nursing staff, she is doing well on the current Prednisone dose of 10mg (which we previously had decreased but had to increase after the pneumonia.) She has not had any falls. She remains on a diet consisting of regular level 4 for solids, thin liquids or pills and pured assistance as needed. Her intertrigin ous rash under her breasts has improved and order is continued to apply Gold Hernandez powder, while discouraging the patient from wearing her bra. Pt complains of musculoskeletal pain in her left shoulder that decreases her range of motion, consistent with her examination from last month. Patient is not a candidate for lower-level care due to intermittent breathing problems and cognitive dysfxn. Her advanced directives indicate no resuscitation, limited medical interventions, no intubation hospitalization if necessary, and no feeding tubes, but she will accept a trial of IV fluids. MOLST form has been reviewed by Dr. Farfan on 04/20/2020. Medication list was reviewed: DuoNeb 0.5 mg3 mg/3 mL as directed 3 times per day Famotidine 20 mg daily Multivitamin daily Breo Ellipta (fluticasone furoatevilanterol) 94928 micrograms/dose 1 puff inhaled daily. Aspirin 81 mg delayed release daily. Furosemide 40 mg daily Sertraline 150 mg daily. Xarelto 15 mg daily Potassium chloride 40 milliequivalents daily. Acetaminophen 325 mg 2 tablets twice a day Cardizem 60 mg 3 times daily. Diclofenac 1% topical 2 times daily, apply to neck and left shoulder. Prednisone 10 mg daily. Tylenol 325 mg 2 tablets every 4 hours acetaminophen suppository 650 mg as needed every 4 hours Dulcolax 10 mg 1 suppository per rectum as needed daily. Enema 197 gram/118 mL, 1 unit per rectum as needed 1 time daily. Milk of magnesia suspension 400 mg/5 mL, 10 mL by mouth as needed Albuterol sulfate 2.5 mg/3 mL one nebulizer as needed every 4 hours. Dimethicone tablet, chewable 80 mg as needed 4 times daily Guaifenesin 100 mg/5 mL: 10 mL by mouth every 6 hours. Alendronate 70mg qweek OBJECTIVE: PHYSICAL EXAMINATION: VITAL SIGNS: Please see below. GENERAL: She appears in no acute distress and was alert and cooperative. She was pleasant today and answered medical questions and concerns appropriately today. HEENT: No facial weakness or rhinorrhea or neck masses appreciated. CARDIOVASCULAR: Irregularly irregular rate and rhythm, rate mildly tachycardic, 107 (this variation is normal for pt as she also had borderline tachycardia at last visit on 09/20/20). No JVD, no murmurs, rubs or gallops. LUNGS: Pt no longer has a wet cough during medical interview, and has quiet and clear respirations. ABDOMINAL: Soft, nontender, BS present EXTREMITIES: Minimal pitting edema in lower extremities, no rigidity appreciated. There is limited range of motion of left shoulder with abduction, unchanged from last exam. Integumentary: mild erythema in intertriginous area under breasts, well-managed with powder and there is no irritation or tenderness at this time. LABORATORY DATA: Please see below. Hemaoccult: fecal occult blood test- positive 10/24/20 IMAGING: Pulmonary Function Test: DATE OF SERVICE: 11/19/16 SPIROMETRY: Pre and post bronchodilator study of excellent technical quality. The forced vital capacity is severely reduced. The FEV1 is out of proportion. The obstructive index is, therefore, reduced. Significant underlying obstructive ventilatory defect with a significant bronchodilator response. Air trapping is suspected. A full study had been recommended, but the patient was unable to perform the required maneuvers. Riky Massey MD 11/19/16 4695 ASSESSMENT/PLAN: Uterine Bleeding: Pt had another episode of uterine bleeding on 10/23/20, staffing will continue to monitor. CBC check done consecutively for the past 2 days with gradual increase in Hgb from 7.8 to 8.1 while Xarelto, ASA, and Lasix is being held. Pt has gynecology appt pending, scheduled for 10/26/20. Pt has VS scheduled for q8h due to sudden decrease in hgb with low SBP consistently in low 90's. Admission to hospital will be low if BP continue to stay low despite holding medications as listed above. Pelvic U/S pending.SEES STAFFING ANALYST Thursday (tom) Hypokalemia 2/2 Diuretic Use: Pt's potassium repletion of 40mEq is being held at this time due to Lasix being held. Steroid responsive asthma: Pt's lung exam elicits improvement in clearance of respiratory tract. Continue current prednisone dosing at 10 mg daily. Steroid and bronchodilator responsive obstructive disease. Atrial fibrillation, rate well-controlled: Continue Diltiazem to 60mg three times daily, with holding parameters, HR <60. (Pt's pulse was high at time of exam, No adjustment made at this time. Pt is anticoagulated on Xarelto 15 mg. Okay to administer Xarelto during the day, since nursing staff is overwhelmed during the night. Rate-controlled on Cardizem. Holding Xarelto and ASA at this time due to active bleeding and low Hgb. Dementia with paranoia, stable. Paranoia not evident today. Controlled without psychotropic drug administration. COPD/Asthma Pt is no longer coughing. Physical exam shows that her lungs have cleared. Continue prednisone at 10mg, continue DuoNeb treatments three times daily. Continue Breo Ellipta at current dosing. Suspect asthma component after reviewing prior PFTs as listed above. Diastolic Dysfunction: holding furosemide 40 mg daily at this time due to active bleeding; reviewed Echocardiogram done by Dr. Em in 2014. Pt's LVEF:70% as of 2014. BMP checks will be [id number], last BMP from 08/31/20 showed no abnormalities to consider. GERD: Continue Pepcid 20mg daily. Dementia/depression: continue Zoloft 150 mg. Pt's mood is improved during this visit. Osteoarthritis: stable. Anemia: pt's CBC is unstable. Will continue to monitor CBC this AM and next few days due to intermittent vaginal bleeding. Pt's son, the HCP is aware of possible emergency communications operator malignancy, gynecology referral placed, HCP aware. Osteoporosis risk: Pt does not have prior fractures listed in chart. However, she is now an osteoporosis risk due to chronic prednisone therapy. Prior to re duction in March, her prednisone dose was 10mg. Doses of higher than 7.5mg have been shown to lead to osteoporosis and linked to fractures. Therefore, alendronate, a bisphosphonate will be continued. Allergies Coded Allergies: ciprofloxacin (Verified Allergy, Unknown, UNKNOWN, 06/25/19) haloperidol (Verified Allergy, Unknown, UNKNOWN, 06/25/19) propoxyphene (Verified Allergy, Unknown, UNKNOWN, 06/25/19) VS, I&O, 24H, Fishbone GME ATTESTATION My faculty preceptor for this patient encounter was physically present during the encounter and was fully available. All aspects of the patient interview, examination, medical decision making process, and medical care plan development were reviewed and approved by the faculty preceptor. The faculty preceptor is aware and concurs with the plan as stated in the body of this note and will attest to such by his/her cosignature. Jonathan Nam DO Oct 24, 2020 19:34 Bryanna Farfan DO Oct 25, 2020 11:56
[2020-10-25 10:45] LABS: HEMATOCRIT 28.7 % (36.0-47.0); HEMOGLOBIN 8.4 g/dl (12.0-15.5); MEAN CORPUSCULAR HEMOGLOBIN 27.7 pg (27.0-33.0); MEAN CORPUSCULAR HGB CONC 29.3 g/dl (32.0-36.5); MEAN CORPUSCULAR VOLUME 94.7 fl (80.0-96.0); PLATELET COUNT, AUTOMATED 238 10^3/uL (150-450); RED BLOOD COUNT 3.03 10^6/uL (4.00-5.40); WHITE BLOOD COUNT 10.5 10^3/uL (4.0-10.0)
[2020-10-25 11:35] LABS: CALCIUM LEVEL 8.7 MG/DL (8.8-10.2); CREATININE FOR GFR 1.13 MG/DL (0.55-1.30); GLOMERULAR FILTRATION RATE 48.7 (>32); POTASSIUM SERUM 4.6 MEQ/L (3.5-5.1)
== END ==
LOC: SKLAB7 07:00
DX: N93.9 Abnormal uterine and vaginal bleeding, unspecified (principal)

== ENCOUNTER → 2020-10-27 | Outpatient (REF) ==
[2020-10-27 16:21] LABS: BACTERIA, URINE AUTO 3+ (NEGATIVE); RBC, URINE AUTO TNTC /HPF (0-3); SQUAMOUS EPITHELIAL CELL UR AU 1 /HPF (0-6); WBC, URINE AUTO TNTC /HPF (0-3)
== END ==
LOC: SKLAB7 15:36
DX: N93.8 Other specified abnormal uterine and vaginal bleeding (principal)

== ENCOUNTER → 2020-10-27 | Outpatient (CLI) | payer MEDICARE, OTHER, MEDICAID ==
[2020-10-27 10:10] LABS: HEMATOCRIT 28.1 % (36.0-47.0); HEMOGLOBIN 8.2 g/dl (12.0-15.5); MEAN CORPUSCULAR HEMOGLOBIN 27.2 pg (27.0-33.0); MEAN CORPUSCULAR HGB CONC 29.2 g/dl (32.0-36.5); PLATELET COUNT, AUTOMATED 208 10^3/uL (150-450); RED BLOOD COUNT 3.02 10^6/uL (4.00-5.40); WHITE BLOOD COUNT 10.7 10^3/uL (4.0-10.0)
[2020-10-27 10:26] LABS: CREATININE FOR GFR 1.03 MG/DL (0.55-1.30); GLOMERULAR FILTRATION RATE 54.2 (>32); POTASSIUM SERUM 3.7 MEQ/L (3.5-5.1)
== END ==
LOC: SKLAB7 02:00
DX: R31.9 Hematuria, unspecified (principal)

== ENCOUNTER → 2020-10-30 | Outpatient (REF) | payer MEDICARE, OTHER, MEDICAID ==
[2020-10-30 09:38] LABS: HEMATOCRIT 29.2 % (36.0-47.0); HEMOGLOBIN 8.4 g/dl (12.0-15.5); MEAN CORPUSCULAR HEMOGLOBIN 26.8 pg (27.0-33.0); MEAN CORPUSCULAR HGB CONC 28.8 g/dl (32.0-36.5); PLATELET COUNT, AUTOMATED 216 10^3/uL (150-450); RED BLOOD COUNT 3.14 10^6/uL (4.00-5.40); WHITE BLOOD COUNT 8.8 10^3/uL (4.0-10.0)
== END ==
LOC: SKLAB7 07:00
DX: N93.9 Abnormal uterine and vaginal bleeding, unspecified (principal)

== ENCOUNTER → 2020-10-31 | Outpatient (REF) | payer MEDICARE, OTHER, MEDICAID ==
[2020-10-31 09:29] LABS: HEMATOCRIT 27.8 % (36.0-47.0); HEMOGLOBIN 8.1 g/dl (12.0-15.5); MEAN CORPUSCULAR HEMOGLOBIN 26.9 pg (27.0-33.0); MEAN CORPUSCULAR HGB CONC 29.1 g/dl (32.0-36.5); MEAN CORPUSCULAR VOLUME 92.4 fl (80.0-96.0); PLATELET COUNT, AUTOMATED 205 10^3/uL (150-450); RED BLOOD COUNT 3.01 10^6/uL (4.00-5.40); WHITE BLOOD COUNT 8.2 10^3/uL (4.0-10.0)
[2020-10-31 09:55] LABS: CALCIUM LEVEL 8.2 MG/DL (8.8-10.2); CREATININE FOR GFR 1.13 MG/DL (0.55-1.30); GLOMERULAR FILTRATION RATE 48.7 (>32); POTASSIUM SERUM 3.9 MEQ/L (3.5-5.1)
== END ==
LOC: SKLAB7 14:22
DX: N93.9 Abnormal uterine and vaginal bleeding, unspecified (principal)

== ENCOUNTER → 2020-11-01 | Outpatient (REF) | payer MEDICARE, OTHER, MEDICAID ==
[2020-11-01 13:12] LABS: HEMATOCRIT 28.5 % (36.0-47.0); HEMOGLOBIN 8.5 g/dl (12.0-15.5); MEAN CORPUSCULAR HEMOGLOBIN 27.2 pg (27.0-33.0); MEAN CORPUSCULAR HGB CONC 29.8 g/dl (32.0-36.5); MEAN CORPUSCULAR VOLUME 91.3 fl (80.0-96.0); PLATELET COUNT, AUTOMATED 223 10^3/uL (150-450); RED BLOOD COUNT 3.12 10^6/uL (4.00-5.40); WHITE BLOOD COUNT 11.4 10^3/uL (4.0-10.0)
[2020-11-01 13:44] LABS: CALCIUM LEVEL 8.6 MG/DL (8.8-10.2); CREATININE FOR GFR 1.11 MG/DL (0.55-1.30); GLOMERULAR FILTRATION RATE 49.7 (>32); POTASSIUM SERUM 4.3 MEQ/L (3.5-5.1)
== END ==
LOC: SKLAB7 08:00
DX: D64.9 Anemia, unspecified (principal); I50.9 Heart failure, unspecified

== ENCOUNTER → 2020-11-02 | Outpatient (REF) | payer MEDICARE, OTHER, MEDICAID ==
[2020-11-02 15:21] LABS: HEMATOCRIT 28.3 % (36.0-47.0); HEMOGLOBIN 8.4 g/dl (12.0-15.5); MEAN CORPUSCULAR HEMOGLOBIN 26.8 pg (27.0-33.0); MEAN CORPUSCULAR HGB CONC 29.7 g/dl (32.0-36.5); MEAN CORPUSCULAR VOLUME 90.4 fl (80.0-96.0); PLATELET COUNT, AUTOMATED 208 10^3/uL (150-450); RED BLOOD COUNT 3.13 10^6/uL (4.00-5.40); WHITE BLOOD COUNT 11.7 10^3/uL (4.0-10.0)
[2020-11-02 15:48] LABS: CALCIUM LEVEL 8.3 MG/DL (8.8-10.2); CREATININE FOR GFR 1.1 MG/DL (0.55-1.30); GLOMERULAR FILTRATION RATE 50.3 (>32); POTASSIUM SERUM 4.6 MEQ/L (3.5-5.1)
== END ==
LOC: SKLAB7 11:37
DX: N93.9 Abnormal uterine and vaginal bleeding, unspecified (principal)

== ENCOUNTER → 2020-11-04 | Outpatient (REF) | payer MEDICARE, OTHER, MEDICAID ==
[2020-11-04 12:19] LABS: HEMATOCRIT 26.6 % (36.0-47.0); HEMOGLOBIN 8.2 g/dl (12.0-15.5); MEAN CORPUSCULAR HEMOGLOBIN 27.2 pg (27.0-33.0); MEAN CORPUSCULAR HGB CONC 30.8 g/dl (32.0-36.5); MEAN CORPUSCULAR VOLUME 88.1 fl (80.0-96.0); PLATELET COUNT, AUTOMATED 209 10^3/uL (150-450); RED BLOOD COUNT 3.02 10^6/uL (4.00-5.40)
[2020-11-04 12:49] LABS: CALCIUM LEVEL 8.5 MG/DL (8.8-10.2); CREATININE FOR GFR 1.04 MG/DL (0.55-1.30); GLOMERULAR FILTRATION RATE 53.6 (>32); POTASSIUM SERUM 4.1 MEQ/L (3.5-5.1)
== END ==
LOC: SKLAB7 11:47
PROVIDERS: ATTEND Internal Medicine Nephrology
DX: I50.9 Heart failure, unspecified (principal); D64.9 Anemia, unspecified

== ENCOUNTER → 2020-11-09 | Outpatient (REF) | payer MEDICARE, OTHER, MEDICAID ==
[2020-11-09 10:23] LABS: HEMATOCRIT 29.3 % (36.0-47.0); HEMOGLOBIN 8.6 g/dl (12.0-15.5); MEAN CORPUSCULAR HEMOGLOBIN 26.4 pg (27.0-33.0); MEAN CORPUSCULAR HGB CONC 29.4 g/dl (32.0-36.5); MEAN CORPUSCULAR VOLUME 89.9 fl (80.0-96.0); PLATELET COUNT, AUTOMATED 223 10^3/uL (150-450); RED BLOOD COUNT 3.26 10^6/uL (4.00-5.40); WHITE BLOOD COUNT 7.9 10^3/uL (4.0-10.0)
[2020-11-09 10:59] LABS: CALCIUM LEVEL 8.6 MG/DL (8.8-10.2); CREATININE FOR GFR 1.17 MG/DL (0.55-1.30); GLOMERULAR FILTRATION RATE 46.8 (>32); POTASSIUM SERUM 4.4 MEQ/L (3.5-5.1); THYROID STIMULATING HORMONE 2.39 uIU/ML (0.358-3.740)
== END ==
LOC: SKLAB7 07:00
DX: D64.9 Anemia, unspecified (principal); R60.9 Edema, unspecified

== ENCOUNTER → 2020-11-15 | Outpatient (REF) | payer MEDICARE, OTHER, MEDICAID ==
[2020-11-15 09:18] LABS: HEMATOCRIT 35.4 % (36.0-47.0); HEMOGLOBIN 10.1 g/dl (12.0-15.5); MEAN CORPUSCULAR HEMOGLOBIN 25.6 pg (27.0-33.0); MEAN CORPUSCULAR HGB CONC 28.5 g/dl (32.0-36.5); MEAN CORPUSCULAR VOLUME 89.8 fl (80.0-96.0); PLATELET COUNT, AUTOMATED 262 10^3/uL (150-450); RED BLOOD COUNT 3.94 10^6/uL (4.00-5.40); WHITE BLOOD COUNT 9.5 10^3/uL (4.0-10.0)
[2020-11-15 09:44] LABS: CREATININE FOR GFR 1.25 MG/DL (0.55-1.30); GLOMERULAR FILTRATION RATE 43.4 (>32); PERCENT SATURATION 13.3 % (13.2-45.0); POTASSIUM SERUM 3.8 MEQ/L (3.5-5.1)
== END ==
LOC: SKLAB7 07:00
DX: N93.9 Abnormal uterine and vaginal bleeding, unspecified (principal); I50.9 Heart failure, unspecified; D64.9 Anemia, unspecified

== ENCOUNTER → 2020-11-22 | Outpatient (REF) | payer MEDICARE, OTHER, MEDICAID ==
[2020-11-22 11:30] LABS: HEMATOCRIT 36.1 % (36.0-47.0); HEMOGLOBIN 10.5 g/dl (12.0-15.5); MEAN CORPUSCULAR HEMOGLOBIN 26.6 pg (27.0-33.0); MEAN CORPUSCULAR HGB CONC 29.1 g/dl (32.0-36.5); MEAN CORPUSCULAR VOLUME 91.6 fl (80.0-96.0); PLATELET COUNT, AUTOMATED 259 10^3/uL (150-450); RED BLOOD COUNT 3.94 10^6/uL (4.00-5.40)
== END ==
LOC: SKLAB7 10:49
DX: K92.2 Gastrointestinal hemorrhage, unspecified (principal)

== ENCOUNTER → 2020-11-29 | Outpatient (REF) | payer MEDICARE, OTHER, MEDICAID ==
[2020-11-29 09:38] LABS: HEMATOCRIT 36.8 % (36.0-47.0); HEMOGLOBIN 11.1 g/dl (12.0-15.5); MEAN CORPUSCULAR HEMOGLOBIN 27.3 pg (27.0-33.0); MEAN CORPUSCULAR HGB CONC 30.2 g/dl (32.0-36.5); MEAN CORPUSCULAR VOLUME 90.6 fl (80.0-96.0); PLATELET COUNT, AUTOMATED 235 10^3/uL (150-450); RED BLOOD COUNT 4.06 10^6/uL (4.00-5.40); WHITE BLOOD COUNT 9.2 10^3/uL (4.0-10.0)
[2020-11-29 10:08] LABS: CALCIUM LEVEL 8.8 MG/DL (8.8-10.2); CREATININE FOR GFR 1.28 MG/DL (0.55-1.30); GLOMERULAR FILTRATION RATE 42.2 (>32); POTASSIUM SERUM 4.7 MEQ/L (3.5-5.1)
== END ==
LOC: SKLAB7 07:00
DX: I50.9 Heart failure, unspecified (principal); D64.9 Anemia, unspecified

== ENCOUNTER → 2020-12-06 | Outpatient (REF) | payer MEDICARE, OTHER, MEDICAID ==
[2020-12-06 10:04] LABS: HEMATOCRIT 40.7 % (36.0-47.0); MEAN CORPUSCULAR HEMOGLOBIN 26.8 pg (27.0-33.0); MEAN CORPUSCULAR HGB CONC 29.5 g/dl (32.0-36.5); MEAN CORPUSCULAR VOLUME 91.1 fl (80.0-96.0); PLATELET COUNT, AUTOMATED 224 10^3/uL (150-450); RED BLOOD COUNT 4.47 10^6/uL (4.00-5.40); WHITE BLOOD COUNT 8.4 10^3/uL (4.0-10.0)
[2020-12-06 10:28] LABS: CALCIUM LEVEL 8.9 MG/DL (8.8-10.2); CREATININE FOR GFR 1.25 MG/DL (0.55-1.30); GLOMERULAR FILTRATION RATE 43.4 (>32); POTASSIUM SERUM 4.2 MEQ/L (3.5-5.1)
== END ==
LOC: SKLAB7 07:00
DX: D64.9 Anemia, unspecified (principal)

== ENCOUNTER → 2020-12-13 | Outpatient (REF) | payer MEDICARE, OTHER, MEDICAID ==
[2020-12-13 09:29] LABS: HEMATOCRIT 42.2 % (36.0-47.0); HEMOGLOBIN 12.4 g/dl (12.0-15.5); MEAN CORPUSCULAR HEMOGLOBIN 26.8 pg (27.0-33.0); MEAN CORPUSCULAR HGB CONC 29.4 g/dl (32.0-36.5); MEAN CORPUSCULAR VOLUME 91.1 fl (80.0-96.0); PLATELET COUNT, AUTOMATED 242 10^3/uL (150-450); RED BLOOD COUNT 4.63 10^6/uL (4.00-5.40); WHITE BLOOD COUNT 9.6 10^3/uL (4.0-10.0)
[2020-12-13 09:58] LABS: CALCIUM LEVEL 8.7 MG/DL (8.8-10.2); CREATININE FOR GFR 1.32 MG/DL (0.55-1.30); GLOMERULAR FILTRATION RATE 40.7 (>32)
== END ==
LOC: SKLAB7 07:00
DX: I50.9 Heart failure, unspecified (principal); D64.9 Anemia, unspecified

== ENCOUNTER → 2020-12-20 | Outpatient (REF) | payer MEDICARE, OTHER, MEDICAID ==
[2020-12-20 11:03] LABS: HEMATOCRIT 43.3 % (36.0-47.0); HEMOGLOBIN 12.8 g/dl (12.0-15.5); MEAN CORPUSCULAR HEMOGLOBIN 26.8 pg (27.0-33.0); MEAN CORPUSCULAR HGB CONC 29.6 g/dl (32.0-36.5); MEAN CORPUSCULAR VOLUME 90.6 fl (80.0-96.0); PLATELET COUNT, AUTOMATED 218 10^3/uL (150-450); RED BLOOD COUNT 4.78 10^6/uL (4.00-5.40); WHITE BLOOD COUNT 9.6 10^3/uL (4.0-10.0)
[2020-12-20 11:38] LABS: CALCIUM LEVEL 8.6 MG/DL (8.8-10.2); CREATININE FOR GFR 1.35 MG/DL (0.55-1.30); GLOMERULAR FILTRATION RATE 39.7 (>32)
== END ==
LOC: SKLAB7 07:00
DX: D64.9 Anemia, unspecified (principal); I50.9 Heart failure, unspecified

== ENCOUNTER → 2020-12-27 | Outpatient (REF) | payer MEDICARE, OTHER, MEDICAID ==
[2020-12-27 10:11] LABS: INR 1.08; PROTHROMBIN TIME 14.2 SECONDS (12.5-14.3)
== END ==
LOC: SKLAB7 07:00
DX: I50.9 Heart failure, unspecified (principal); D64.9 Anemia, unspecified

== ENCOUNTER → 2021-01-03 | Outpatient (REF) | payer MEDICARE, OTHER, MEDICAID ==
[2021-01-03 09:47] LABS: HEMATOCRIT 43.8 % (36.0-47.0); HEMOGLOBIN 13.1 g/dl (12.0-15.5); MEAN CORPUSCULAR HEMOGLOBIN 27.2 pg (27.0-33.0); MEAN CORPUSCULAR HGB CONC 29.9 g/dl (32.0-36.5); MEAN CORPUSCULAR VOLUME 91.1 fl (80.0-96.0); PLATELET COUNT, AUTOMATED 234 10^3/uL (150-450); RED BLOOD COUNT 4.81 10^6/uL (4.00-5.40); WHITE BLOOD COUNT 9.1 10^3/uL (4.0-10.0)
[2021-01-03 10:02] LABS: CREATININE FOR GFR 1.26 MG/DL (0.55-1.30); POTASSIUM SERUM 4.1 MEQ/L (3.5-5.1)
== END ==
LOC: SKLAB7 07:00
DX: D64.9 Anemia, unspecified (principal); I50.9 Heart failure, unspecified

== ENCOUNTER → 2021-01-10 | Outpatient (REF) | payer MEDICARE, OTHER, MEDICAID ==
[2021-01-10 09:47] LABS: HEMATOCRIT 44.2 % (36.0-47.0); HEMOGLOBIN 13.3 g/dl (12.0-15.5); MEAN CORPUSCULAR HEMOGLOBIN 27.4 pg (27.0-33.0); MEAN CORPUSCULAR HGB CONC 30.1 g/dl (32.0-36.5); MEAN CORPUSCULAR VOLUME 91.1 fl (80.0-96.0); PLATELET COUNT, AUTOMATED 226 10^3/uL (150-450); RED BLOOD COUNT 4.85 10^6/uL (4.00-5.40); WHITE BLOOD COUNT 8.2 10^3/uL (4.0-10.0)
[2021-01-10 10:17] LABS: CALCIUM LEVEL 8.7 MG/DL (8.8-10.2); CREATININE FOR GFR 1.18 MG/DL (0.55-1.30); GLOMERULAR FILTRATION RATE 46.3 (>32); POTASSIUM SERUM 3.9 MEQ/L (3.5-5.1)
== END ==
LOC: SKLAB7 07:00
DX: D64.9 Anemia, unspecified (principal); I50.9 Heart failure, unspecified

== ENCOUNTER → 2021-01-17 | Outpatient (REF) | payer MEDICARE, OTHER, MEDICAID ==
[2021-01-17 11:28] LABS: HEMATOCRIT 42.5 % (36.0-47.0); HEMOGLOBIN 12.7 g/dl (12.0-15.5); MEAN CORPUSCULAR HEMOGLOBIN 27.1 pg (27.0-33.0); MEAN CORPUSCULAR HGB CONC 29.9 g/dl (32.0-36.5); MEAN CORPUSCULAR VOLUME 90.8 fl (80.0-96.0); PLATELET COUNT, AUTOMATED 221 10^3/uL (150-450); RED BLOOD COUNT 4.68 10^6/uL (4.00-5.40)
[2021-01-17 12:09] LABS: CREATININE FOR GFR 1.28 MG/DL (0.55-1.30); GLOMERULAR FILTRATION RATE 42.2 (>32); POTASSIUM SERUM 3.9 MEQ/L (3.5-5.1)
== END ==
LOC: SKLAB7 07:00
DX: I50.9 Heart failure, unspecified (principal); D64.9 Anemia, unspecified

== ENCOUNTER → 2021-01-24 | Outpatient (REF) | payer MEDICARE, OTHER, MEDICAID ==
[2021-01-24 09:50] LABS: HEMATOCRIT 40.9 % (36.0-47.0); HEMOGLOBIN 12.5 g/dl (12.0-15.5); MEAN CORPUSCULAR HEMOGLOBIN 27.8 pg (27.0-33.0); MEAN CORPUSCULAR HGB CONC 30.6 g/dl (32.0-36.5); MEAN CORPUSCULAR VOLUME 90.9 fl (80.0-96.0); PLATELET COUNT, AUTOMATED 213 10^3/uL (150-450)
[2021-01-24 10:15] LABS: CREATININE FOR GFR 1.26 MG/DL (0.55-1.30); POTASSIUM SERUM 4.3 MEQ/L (3.5-5.1)
== END ==
LOC: SKLAB7 10:18
DX: I50.9 Heart failure, unspecified (principal); D64.9 Anemia, unspecified

== ENCOUNTER → 2021-01-31 | Outpatient (REF) | payer MEDICARE, OTHER, MEDICAID ==
[2021-01-31 11:07] LABS: HEMATOCRIT 41.7 % (36.0-47.0); HEMOGLOBIN 12.9 g/dl (12.0-15.5); MEAN CORPUSCULAR HGB CONC 30.9 g/dl (32.0-36.5); MEAN CORPUSCULAR VOLUME 90.7 fl (80.0-96.0); PLATELET COUNT, AUTOMATED 206 10^3/uL (150-450); WHITE BLOOD COUNT 11.5 10^3/uL (4.0-10.0)
[2021-01-31 11:34] LABS: CREATININE FOR GFR 1.26 MG/DL (0.55-1.30); POTASSIUM SERUM 4.1 MEQ/L (3.5-5.1)
[2021-01-31 11:35] LABS: CALCIUM LEVEL 8.8 MG/DL (8.8-10.2)
== END ==
LOC: SKLAB7 13:53
DX: D64.9 Anemia, unspecified (principal); I50.9 Heart failure, unspecified

== ENCOUNTER → 2021-02-01 | Outpatient (REF) | payer MEDICARE, OTHER, MEDICAID ==
[~2021-02-01] MED LIST changes: +ALEN70TA82 PO; +APAP325T4 PO; +CARD180C4 PO; +ELIQ2.5T PO; +POTA-149 PO; +POTA-151 PO; -POTA10TA16 PO; +SENN-23 PO
[2021-02-01 09:49] LABS: HEMATOCRIT 42.8 % (36.0-47.0); HEMOGLOBIN 13.3 g/dl (12.0-15.5); MEAN CORPUSCULAR HEMOGLOBIN 28.2 pg (27.0-33.0); MEAN CORPUSCULAR HGB CONC 31.1 g/dl (32.0-36.5); MEAN CORPUSCULAR VOLUME 90.9 fl (80.0-96.0); PLATELET COUNT, AUTOMATED 215 10^3/uL (150-450); RED BLOOD COUNT 4.71 10^6/uL (4.00-5.40); WHITE BLOOD COUNT 8.1 10^3/uL (4.0-10.0)
== END ==
LOC: SKLAB7 07:00
DX: D72.829 Elevated white blood cell count, unspecified (principal)

== ENCOUNTER → 2021-02-21 | Outpatient (REF) | payer MEDICARE, OTHER, MEDICAID ==
[~2021-02-21] MED LIST changes: -ALEN70TA82 PO; -APAP325T4 PO; -CARD180C4 PO; -ELIQ2.5T PO; -POTA-149 PO; -POTA-151 PO; +POTA10TA16 PO; -SENN-23 PO
[2021-02-21 11:09] LABS: ALBUMIN 3.2 GM/DL (3.2-5.2); BILIRUBIN,TOTAL 0.5 MG/DL (0.2-1.0); CREATININE FOR GFR 1.26 MG/DL (0.55-1.30); POTASSIUM SERUM 4.4 MEQ/L (3.5-5.1); TOTAL PROTEIN 6.5 GM/DL (6.4-8.2)
== END ==
LOC: SKLAB7 07:00
PROVIDERS: ATTEND Internal Medicine
DX: D64.9 Anemia, unspecified (principal); G89.29 Other chronic pain; F03.90 Unspecified dementia, unspecified severity, without behavioral disturbance, psychotic disturbance, mood disturbance, and anxiety

== ENCOUNTER → 2021-02-28 | Outpatient (REF) | payer MEDICARE, OTHER, MEDICAID ==
--- NOTE | 2021-02-28 12:02 | REP ---
INDICATION: ABD PAIN. COMPARISON: None. TECHNIQUE: AP view abdomen and pelvis. FINDINGS: There is no radiographic evidence of bowel obstruction. There is a large amount of fecal material in the rectum. Multiple phleboliths there are degenerative changes of the spine. Are seen in the pelvis. IMPRESSION: No evidence of bowel obstruction. Large amount of fecal material in the rectum. <Electronically signed by Francois Cardenas > 02/28/21 [id number]
[2021-02-28 12:12] LABS: HEMATOCRIT 40.1 % (36.0-47.0); HEMOGLOBIN 12.5 g/dl (12.0-15.5); MEAN CORPUSCULAR HEMOGLOBIN 28.9 pg (27.0-33.0); MEAN CORPUSCULAR HGB CONC 31.2 g/dl (32.0-36.5); MEAN CORPUSCULAR VOLUME 92.8 fl (80.0-96.0); PLATELET COUNT, AUTOMATED 176 10^3/uL (150-450); RED BLOOD COUNT 4.32 10^6/uL (4.00-5.40); WHITE BLOOD COUNT 10.2 10^3/uL (4.0-10.0)
[2021-02-28 12:19] LABS: APPEARANCE, URINE TURBID (CLEAR); BACTERIA, URINE AUTO 2+ (NEGATIVE); BILIRUBIN, URINE AUTO NEGATIVE (NEGATIVE); BLOOD, URINE BLOOD 3+ (NEGATIVE); COLOR, URINE RED (YELLOW); GLUCOSE, URINE (UA) AUTO NEGATIVE (NEGATIVE); KETONE, URINE AUTO NEGATIVE (NEGATIVE); LEUKOCYTE ESTERASE, URINE AUTO 3+ (NEGATIVE); NITRITE, URINE AUTO POSITIVE (NEGATIVE); PROTEIN, URINE AUTO 2+ mg/dL (NEGATIVE); RBC, URINE AUTO TNTC /HPF (0-3); SPECIFIC GRAVITY URINE AUTO 1.012 (1.002-1.035); SQUAMOUS EPITHELIAL CELL UR AU 2 /HPF (0-6); UROBILINOGEN, URINE AUTO 0.2 mg/dL (0.0-2.0); WBC, URINE AUTO TNTC /HPF (0-3)
[2021-02-28 12:36] LABS: ALBUMIN 2.8 GM/DL (3.2-5.2); BILIRUBIN,TOTAL 0.8 MG/DL (0.2-1.0); CALCIUM LEVEL 8.4 MG/DL (8.8-10.2); CREATININE FOR GFR 1.8 MG/DL (0.55-1.30); GLOMERULAR FILTRATION RATE 28.5 (>32); POTASSIUM SERUM 4.7 MEQ/L (3.5-5.1); TOTAL PROTEIN 6.4 GM/DL (6.4-8.2)
[2021-02-28 14:13] LABS: APPEARANCE, URINE CLOUDY (CLEAR); BACTERIA, URINE AUTO 3+ (NEGATIVE); BILIRUBIN, URINE AUTO NEGATIVE (NEGATIVE); BLOOD, URINE BLOOD 3+ (NEGATIVE); COLOR, URINE AMBER (YELLOW); GLUCOSE, URINE (UA) AUTO NEGATIVE (NEGATIVE); KETONE, URINE AUTO NEGATIVE (NEGATIVE); LEUKOCYTE ESTERASE, URINE AUTO 3+ (NEGATIVE); MUCUS, URINE SMALL (NEGATIVE); NITRITE, URINE AUTO NEGATIVE (NEGATIVE); PROTEIN, URINE AUTO 2+ mg/dL (NEGATIVE); RBC, URINE AUTO TNTC /HPF (0-3); SPECIFIC GRAVITY URINE AUTO 1.012 (1.002-1.035); SQUAMOUS EPITHELIAL CELL UR AU 2 /HPF (0-6); UROBILINOGEN, URINE AUTO 0.2 mg/dL (0.0-2.0); WBC, URINE AUTO TNTC /HPF (0-3)
== END ==
LOC: SKLAB7 11:11
PROVIDERS: ATTEND Internal Medicine
DX: R50.9 Fever, unspecified (principal); R10.9 Unspecified abdominal pain

== ENCOUNTER → 2021-03-04 | Outpatient (REF) | payer MEDICARE, OTHER, MEDICAID ==
[2021-03-04 10:36] LABS: HEMATOCRIT 35.9 % (36.0-47.0); HEMOGLOBIN 11.3 g/dl (12.0-15.5); MEAN CORPUSCULAR HGB CONC 31.5 g/dl (32.0-36.5); MEAN CORPUSCULAR VOLUME 92.1 fl (80.0-96.0); PLATELET COUNT, AUTOMATED 150 10^3/uL (150-450)
[2021-03-04 11:09] LABS: ALBUMIN 2.2 GM/DL (3.2-5.2); BILIRUBIN,TOTAL 0.4 MG/DL (0.2-1.0); CALCIUM LEVEL 8.6 MG/DL (8.8-10.2); CREATININE FOR GFR 1.75 MG/DL (0.55-1.30); GLOMERULAR FILTRATION RATE 29.4 (>32); POTASSIUM SERUM 5.2 MEQ/L (3.5-5.1); TOTAL PROTEIN 5.6 GM/DL (6.4-8.2)
== END ==
LOC: SKLAB7 07:21
PROVIDERS: ATTEND Internal Medicine
DX: R50.9 Fever, unspecified (principal); Z79.2 Long term (current) use of antibiotics

== ENCOUNTER → 2021-03-07 | Outpatient (REF) | payer MEDICARE, OTHER, MEDICAID ==
[2021-03-07 13:37] LABS: HEMOGLOBIN 12.5 g/dl (12.0-15.5); MEAN CORPUSCULAR HGB CONC 31.3 g/dl (32.0-36.5); MEAN CORPUSCULAR VOLUME 92.8 fl (80.0-96.0); PLATELET COUNT, AUTOMATED 231 10^3/uL (150-450); RED BLOOD COUNT 4.31 10^6/uL (4.00-5.40); WHITE BLOOD COUNT 10.6 10^3/uL (4.0-10.0)
[2021-03-07 14:03] LABS: CALCIUM LEVEL 8.4 MG/DL (8.8-10.2); CREATININE FOR GFR 1.31 MG/DL (0.55-1.30); GLOMERULAR FILTRATION RATE 41.1 (>32); POTASSIUM SERUM 4.8 MEQ/L (3.5-5.1)
== END ==
LOC: SKLAB7 09:11
PROVIDERS: ATTEND Internal Medicine
DX: D64.9 Anemia, unspecified (principal); I50.9 Heart failure, unspecified

== ENCOUNTER → 2021-04-30 | Outpatient (REF) | payer MEDICARE, OTHER, MEDICAID | LOC: SKLAB7 10:36 | PROVIDERS: ATTEND Internal Medicine | DX: Z20.822 Contact with and (suspected) exposure to COVID-19 (principal) ==

== ENCOUNTER → 2021-05-01 | Outpatient (REF) | payer MEDICARE, OTHER, MEDICAID ==
[2021-05-01 13:38] LABS: HEMATOCRIT 41.8 % (36.0-47.0); HEMOGLOBIN 13.6 g/dl (12.0-15.5); MEAN CORPUSCULAR HEMOGLOBIN 29.4 pg (27.0-33.0); MEAN CORPUSCULAR HGB CONC 32.5 g/dl (32.0-36.5); MEAN CORPUSCULAR VOLUME 90.5 fl (80.0-96.0); PLATELET COUNT, AUTOMATED 188 10^3/uL (150-450); RED BLOOD COUNT 4.62 10^6/uL (4.00-5.40); WHITE BLOOD COUNT 7.9 10^3/uL (4.0-10.0)
[2021-05-01 14:22] LABS: CALCIUM LEVEL 8.6 MG/DL (8.8-10.2); CREATININE FOR GFR 1.33 MG/DL (0.55-1.30); GLOMERULAR FILTRATION RATE 40.4 (>32); POTASSIUM SERUM 4.2 MEQ/L (3.5-5.1)
[2021-05-01 14:23] LABS: ALBUMIN 3.1 GM/DL (3.2-5.2); BILIRUBIN,TOTAL 0.5 MG/DL (0.2-1.0); TOTAL PROTEIN 6.4 GM/DL (6.4-8.2)
== END ==
LOC: SKLAB2 12:07
PROVIDERS: ATTEND Internal Medicine
DX: U07.1 COVID-19 (principal); Z79.899 Other long term (current) drug therapy

== ENCOUNTER → 2021-05-03 | Outpatient (REF) | payer MEDICARE, OTHER, MEDICAID ==
[2021-05-03 13:49] LABS: HEMATOCRIT 41.5 % (36.0-47.0); HEMOGLOBIN 13.5 g/dl (12.0-15.5); MEAN CORPUSCULAR HEMOGLOBIN 29.4 pg (27.0-33.0); MEAN CORPUSCULAR HGB CONC 32.5 g/dl (32.0-36.5); MEAN CORPUSCULAR VOLUME 90.4 fl (80.0-96.0); PLATELET COUNT, AUTOMATED 163 10^3/uL (150-450); RED BLOOD COUNT 4.59 10^6/uL (4.00-5.40)
[2021-05-03 14:18] LABS: CALCIUM LEVEL 8.6 MG/DL (8.8-10.2); CREATININE FOR GFR 1.28 MG/DL (0.55-1.30); GLOMERULAR FILTRATION RATE 42.2 (>32); POTASSIUM SERUM 4.2 MEQ/L (3.5-5.1)
== END ==
LOC: SKLAB2 07:18
PROVIDERS: ATTEND Internal Medicine
DX: U07.1 COVID-19 (principal); Z79.899 Other long term (current) drug therapy

== ENCOUNTER → 2021-05-06 | Outpatient (REF) | payer MEDICARE, OTHER, MEDICAID ==
[~2021-05-06] MED LIST changes: +ACETAMINOPHEN TAB 650MG DOSE (2X325MG) PO ONE; +ALBUTEROL 90 MCG/ACT 8GM HFA INHALER INH PRN; +ALBUTEROL SULFATE 2.5 MG/0.5 ML INH NEB SOLN INH PRN; +ALEN70TA82 PO; +APAP325T4 PO; +BAMLANIVIMAB 700 MG, ETESEVIMAB 1,400 MG in NS 250 ML IV ONE; +CARD180C4 PO; +ELIQ2.5T PO; +EPINEPHrine INJ 1 MG/ML 1ML AMP IM PRN; +NS 1,000 ML IV SCH; +POTA20TA6 PO; +SENN-23 PO; +diphenhydrAMINE 25MG CAP PO ONE; +diphenhydrAMINE 50MG/ML VIAL (J1200) IV PRN; +methylPREDNISolone 125MG 2ML VIAL IV PRN
[2021-05-06 11:15] LABS: HEMOGLOBIN 13.9 g/dl (12.0-15.5); MEAN CORPUSCULAR HEMOGLOBIN 29.4 pg (27.0-33.0); MEAN CORPUSCULAR HGB CONC 32.3 g/dl (32.0-36.5); MEAN CORPUSCULAR VOLUME 91.1 fl (80.0-96.0); PLATELET COUNT, AUTOMATED 164 10^3/uL (150-450); RED BLOOD COUNT 4.72 10^6/uL (4.00-5.40); WHITE BLOOD COUNT 7.2 10^3/uL (4.0-10.0)
[2021-05-06 11:37] LABS: CALCIUM LEVEL 8.3 MG/DL (8.8-10.2); CREATININE FOR GFR 1.34 MG/DL (0.55-1.30); POTASSIUM SERUM 4.4 MEQ/L (3.5-5.1)
== END ==
LOC: SKLAB2 09:02
PROVIDERS: ATTEND Internal Medicine
DX: U07.1 COVID-19 (principal)

== ENCOUNTER 2021-05-08 08:38 | Inpatient (IN) | payer MEDICARE, OTHER, MEDICAID ==
[~2021-05-08] VITALS: Ht 172.7 cm; Wt 109.1 kg
[~2021-05-08 08:38] MED LIST changes: -ALEN70TA82 PO; -APAP325T4 PO; -CARD180C4 PO; -ELIQ2.5T PO; -POTA20TA6 PO; -SENN-23 PO
[2021-05-08] MEDS ORDERED: dexameTHASONE 4 MG/ML 1ML VIAL (J1100 PER 1MG) IV ONE (08:50)
--- OUTSIDE RECORDS SUMMARY | 2021-05-08 09:07 | CCD ---
Author Author [facility] Organization [facility] Address Unknown Phone Unavailable Support Name Relationship Address Phone ETHAN GARETT Next Of Kin [address] [address] CORI LONG Next Of Kin [address] [place] [address] RE Next Of Kin Unknown Unavailable JENNIFER GARETT Next Of Kin [address] [place] [address] LATOYA LONG Next Of Kin [address] [place] [address] [facility] Next Of Kin [address] [facility] [address] [place] [address] [facility] Next Of Kin [address] [place] [address] RAYRAY LONG Next Of Kin [address] [place] [address] [facility] Next Of Kin [address] [place] [address] JAN LONG Next Of [address] [address] [address] LONG [address] [id number] Re-disclosure Warning The records that you are about to access may contain information from federally-assisted alcohol or drug abuse programs. If such information is present, then the following federally mandated warning applies: This information has been disclosed to you from records protected by federal confidentiality rules (42 CFR part 2). The federal rules prohibit you from making any further disclosure of this information unless further disclosure is expressly permitted by the written consent of the person to whom it pertains or as otherwise permitted by 42 CFR part 2. A general authorization for the release of medical or other information is NOT sufficient for this purpose. The Federal rules restrict any use of the information to criminally investigate or prosecute any alcohol or drug abuse patient.The records that you are about to access may contain highly sensitive health information, the redisclosure of which is protected by Article 27-F of the [facility] Public Health law. If you continue you may have access to information: Regarding HIV / AIDS; Provided by facilities licensed or operated by the [facility] Office of Mental Health; or Provided by the [facility] Office for People With Developmental Disabilities. If such information is present, then the following [facility] mandated warning applies: This information has been disclosed to you from confidential records which are protected by state law. State law prohibits you from making any further disclosure of this information without the specific written consent of the person to whom it pertains, or as otherwise permitted by law. Any unauthorized further disclosure in violation of state law may result in a fine or group home sentence or both. A general authorization for the release of medical or other information is NOT sufficient authorization for further disc losure. Family History Family Member Name Family Member Gender Family Member Status Date o f Status Description Data Source(s) Unknown Male Problem [facility] ([facility]) Encounters Encounter Providers Location Date Indications Data Source(s ) (Cyst[facility]) Urology [address] [place] [address] 11/02/2020 12:00:00 AM EDT eCW1 ([facility]) Outpatient [address] [facility] [address] 11/01/2020 12:00:00 AM EDT eCW1 ([facility]) Unknown [address] [facility] [place] [address] 11/01/2020 12:00:00 AM EDT eCW1 ([facility]) Outpatient [address] [facility] [place] [address] 10/26/2020 12:00:00 AM EDT eCW1 ([facility]) Immunizations Vaccine Date Status Description Data Source(s) COVID-19 VACCINE Pfizer 08/07/2020 12:00:00 AM EST completed [facility] Vaccine Series Complete: YESThis Data wa s Submitted to [facility]. COVID-19 VACCINE Pfizer 07/17/2020 12:00:00 AM EST completed [facility] Vaccine Series Complete: NOThis Data was Submitted to [facility]. Medications Medication Brand Name Start Date Product Form Dose Route Admi nistrative Instructions Pharmacy Instructions Status Indications Reaction Description Data Source(s) 70 mg 10/16/2020 12:00:00 AM EDT tablet 4 TAKE 1 TABLET BY MOUTH ONCE A WEEK TAKE 1 TABLET BY MOUTH ONCE A WEEK SOLD: 10/16/2020 [facility] 20 mg 06/06/2020 12:00:00 AM EST tablet 10 TAKE TWO TABLETS BY MOUTH EVERY DAY FOR 5 DAYS TAKE TWO TABLETS BY MOUTH EVERY DAY FOR 5 DAYS SOLD: 020 [facility] 300 mg 06/06/2020 12:00:00 AM EST capsule 4 TAKE ONE CAPSULE BY MOUTH TWICE A DAY FOR 2 DAYS TAKE ONE CAPSULE BY MOUTH TWICE A DAY FOR 2 DAYS SOLD: 06/06/2020 [facility] 100 mg 06/06/2020 12:00:00 AM EST capsule 4 TAKE ONE CAPSULE BY MOUTH TWICE A DAY FOR 2 DAYS TAKE ONE CAPSULE BY MOUTH TWICE A DAY FOR 2 DAYS SOLD: 06/06/2020 [facility] Insurance Providers Payer name Policy type / Coverage type Policy ID Covered republican ID Covered republican's relationship to [place]le[place] Policy [place] Plan Information [employer] [id number] MEDICARE [id number] SP [id number] A MEDICARE [id number] SP [id number] A [place] Primary [id number] Self [id number] Ghi/Emblem HLTH (pr) Medigap Part B [id number] Self [id number] Ghi/Emblem HLTH (pr) Medigap Part B [id number] Self [id number] Medicare [place] Medicare Primary [id number] Self [id number] Medicare [place] Primary [id number] Self [id number] Ghi/Emblem HLTH (pr) Medigap Part B [id number] Self [id number] Medicare [place] Medicare Primary [id number] Self [id number] Ghi/Emblem HLTH (pr) Medigap Part B [id number] Self [id number] [place] (pr) Medigap Part B [id number] Self [id number] [place] (pr) Medigap Part B [id number] Self [id number] [place] (pr) Medigap Part B [id number] Self [id number] [place] (pr) Medigap Part B [id number] Self [id number] R [facility] [id number] SP [id number] NGS MEDICARE NEW HAMPHIR O [id number] S [id number] MEDICAID M [id number] S [id number] MEDICARE - [place] MCR [id number] S [id number] MEDICARE C [id number] S [id number] UMR O [id number] S [id number] [facility] [id number] SP [id number] [place] [id number] SP [id number] [place]OM[place] PPO O [id number] S [id number] MEDICARE C [id number] S [id number] A [place] [id number] SP [id number] [place] [id number] SP [id number] MEDICARE [id number] SP [id number] A [place] [id number] SP [id number] SELF PAY Umr (pr) Medigap Part B [id number] Self [id number] MEDICARE [id number] SP [id number] [id number] MEDICAID [id number] SP [id number] Problems, Conditions, and Diagnoses Code Display Name Description Problem Type Effective Dates Data Source(s) N32.9 576879097 Lesion of bladder Problem 11/01/2020 12:00:0 0 AM EDT eCW1 ([facility]) Surgeries/Procedures Procedure Description Date Indications Data Source(s) Medication: Lidocaine HCl 2% Jelly 5mL Intravesically 11/02/2020 12:00:00 AM EDT eCW1 ([facility]) Results ID Date Data Source [id number] 04/30/2021 11:00:00 AM EDT [facility] Name Value Range Interpretation Code Description Data Vilma rce(s) Supporting Document(s) SARS coronavirus 2 RNA [Presence] in Res piratory specimen by STEVE with probe detection POSITIVE [facility] This lab was ordered by [facility] a nd reported by [facility]. ID Date Data Source 33 04/29/2021 12:00:00 AM EDT [facility] Name Value Range Interpretation Code Description Data Vilma rce(s) Supporting Document(s) SARS coronavirus 2 Ag NEGATIVE [facility] This lab was ordered by [facility] and reported by [facility]. ID Date Data Source 28 04/15/2021 12:00:00 AM EDT [facility] Name Value Range Interpretation Code Description Data Vilma rce(s) Supporting Document(s) SARS coronavirus 2 Ag NEGATIVE [facility] This lab was ordered by [facility] and reported by [facility]. ID Date Data Source 32 04/03/2021 12:00:00 AM EDT [facility] Name Value Range Interpretation Code Description Data Vilma rce(s) Supporting Document(s) SARS coronavirus 2 Ag NEGATIVE [facility] This lab was ordered by [facility] and reported by [facility]. ID Date Data Source 30 12/13/2020 12:00:00 AM EDT [facility] Name Value Range Interpretation Code Description Data Vilma rce(s) Supporting Document(s) SARS coronavirus 2 Ag NEGATIVE [facility] This lab was ordered by [facility] and reported by [facility]. ID Date Data Source 29 11/26/2020 12:00:00 AM EDT [facility] Name Value Range Interpretation Code Description Data Vilma rce(s) Supporting Document(s) SARS coronavirus 2 Ag NEGATIVE [facility] This lab was ordered by [facility] and reported by [facility]. ID Date Data Source 27 11/19/2020 12:00:00 AM EDT [facility] Name Value Range Interpretation Code Description Data Vilma rce(s) Supporting Document(s) SARS coronavirus 2 Ag NEGATIVE [facility] This lab was ordered by [facility] and reported by [facility]. ID Date Data Source 26 11/06/2020 12:00:00 AM EDT [facility] Name Value Range Interpretation Code Description Data Vilma rce(s) Supporting Document(s) SARS coronavirus 2 Ag NEGATIVE [facility] This lab was ordered by [facility] and reported by [facility]. ID Date Data Source [id number] 09/26/2020 11:50:00 AM EDT [facility] Name Value Range Interpretation Code Description Data Vilma rce(s) Supporting Document(s) SARS coronavirus 2 RNA Not Detected [facility] This lab was ordered by [facility] and reported by [facility]. ID Date Data Source [id number] 09/19/2020 07:00:00 AM EST [facility] Name Value Range Interpretation Code Description Data Vilma rce(s) Supporting Document(s) SARS coronavirus 2 RNA Not Detected [facility] This lab was ordered by [facility] and reported by [facility]. ID Date Data Source [id number] 09/05/2020 10:10:00 AM EST [facility] Name Value Range Interpretation Code Description Data Vilma rce(s) Supporting Document(s) SARS coronavirus 2 RNA Not Detected [facility] This lab was ordered by [facility] and reported by [facility]. ID Date Data Source [id number] 08/29/2020 10:15:00 AM EST [facility] Name Value Range Interpretation Code Description Data Vilma rce(s) Supporting Document(s) SARS coronavirus 2 RNA Not Detected [facility] This lab was ordered by [facility] and reported by [facility]. ID Date Data Source [id number] 08/22/2020 10:00:00 AM EST [facility] Name Value Range Interpretation Code Description Data Vilma rce(s) Supporting Document(s) SARS coronavirus 2 RNA Not Detected [facility] [place] This lab was ordered by [facility] and reported by [facility]. ID Date Data Source [id number] 08/15/2020 10:00:00 AM EST [facility] Name Value Range Interpretation Code Description Data Vilma rce(s) Supporting Document(s) SARS coronavirus 2 RNA Not Detected [facility] [place] This lab was ordered by [facility] and reported by [facility]. ID Date Data Source [id number] 08/08/2020 09:50:00 AM EST [facility] Name Value Range Interpretation Code Description Data Vilma rce(s) Supporting Document(s) SARS coronavirus 2 RNA Not Detected [facility] [place] This lab was ordered by [facility] and reported by [facility]. ID Date Data Source [id number] 08/01/2020 08:00:00 AM EST [facility] Name Value Range Interpretation Code Description Data Vilma rce(s) Supporting Document(s) SARS coronavirus 2 RNA Not Detected [facility] [place] This lab was ordered by [facility] and reported by [facility]. ID Date Data Source [id number] 07/25/2020 11:00:00 AM EST [facility] Name Value Range Interpretation Code Description Data Vilma rce(s) Supporting Document(s) SARS coronavirus 2 RNA Not Detected [facility] [place] This lab was ordered by [facility] and reported by [facility]. ID Date Data Source [id number] 07/18/2020 11:00:00 AM EST [facility] Name Value Range Interpretation Code Description Data Vilma rce(s) Supporting Document(s) SARS coronavirus 2 RNA Not Detected [facility] [place] This lab was ordered by [facility] and reported by [facility]. ID Date Data Source [id number] 07/11/2020 08:41:00 AM EST [facility] Name Value Range Interpretation Code Description Data Vilma rce(s) Supporting Document(s) SARS coronavirus 2 RNA [facility] This lab was ordered by [facility] and reported by [facility]. ID Date Data Source [id number] 07/04/2020 05:10:00 AM EST [facility] Name Value Range Interpretation Code Description Data Vilma rce(s) Supporting Document(s) SARS coronavirus 2 RNA [facility] This lab was ordered by [facility] and reported by [facility]. ID Date Data Source [id number] 06/27/2020 10:35:00 AM EST [facility] Name Value Range Interpretation Code Description Data Vilma rce(s) Supporting Document(s) SARS coronavirus 2 RNA [facility] This lab was ordered by [facility] and reported by [facility]. ID Date Data Source [id number] 06/20/2020 12:00:00 PM EST [facility] Name Value Range Interpretation Code Description Data Vilma rce(s) Supporting Document(s) SARS coronavirus 2 RNA [facility] This lab was ordered by [facility] and reported by [facility]. ID Date Data Source [id number] 06/16/2020 08:30:00 AM EST [facility] Name Value Range Interpretation Code Description Data Vilma rce(s) Supporting Document(s) SARS coronavirus 2 RNA [facility] This lab was ordered by [facility] and reported by [facility]. ID Date Data Source [id number] 06/13/2020 10:30:00 AM EST [facility] Name Value Range Interpretation Code Description Data Vilma rce(s) Supporting Document(s) SARS coronavirus 2 RNA [facility] This lab was ordered by [facility] and reported by [facility]. ID Date Data Source [id number] 06/06/2020 11:00:00 AM EST [facility] Name Value Range Interpretation Code Description Data Vilma rce(s) Supporting Document(s) SARS coronavirus 2 RNA [facility] This lab was ordered by [facility] and reported by [facility]. ID Date Data Source [id number] 05/30/2020 10:25:00 AM EST [facility] Name Value Range Interpretation Code Description Data Vilma rce(s) Supporting Document(s) SARS coronavirus 2 RNA [facility] This lab was ordered by [facility] and reported by [facility]. ID Date Data Source [id number] 05/24/2020 02:49:00 PM EST [facility] Name Value Range Interpretation Code Description Data Vilma rce(s) Supporting Document(s) SARS coronavirus 2 RNA [facility] This lab was ordered by [facility] and reported by [facility]. Procedure Social History No Information Vital Signs ID Date Data Source UNK Name Value Range Interpretation Code Description Data Source(s) Body weight 160 [lb_av] 160 [lb_av] eCW1 ([facility]) Body height 61 [in_i] 61 [in_i] eCW1 ([facility]) Body mass index (BMI) [Ratio] 30.23 kg/m2 30.23 kg/m2 W1 ([facility]) Heart rate 139 /min 139 /min eCW1 ([facility]) Respiratory rate 18 /min 18 /min [facility]CW1 [facility] Body temperature 98.3 [degF] 98.3 [degF] eCW1 ( [facility]) Systolic blood pressure 134 mm[Hg] 134 mm[Hg] e CW1 ([facility]) Diastolic blood pressure 93 mm[Hg] 93 mm[Hg] eCW1 ([facility]) Body weight 160 [lb_av] 160 [lb_av] eCW1 ([facility]) Body height 61 [in_i] 61 [in_i] eCW1 ([facility]) Body mass index (BMI) [Ratio] 30.23 kg/m2 30.23 kg/m2 W1 ([facility]) Heart rate 117 /min 117 /min eCW1 ([facility]) Respiratory rate 18 /min 18 /min eCW1 ([facility] Body temperature 96.8 [degF] 96.8 [degF] eCW1 ( [facility]) Systolic blood pressure 118 mm[Hg] 118 mm[Hg] e CW1 ([facility]) Diastolic blood pressure 68 mm[Hg] 68 mm[Hg] eCW1 ([facility]) Body height 61 [in_i] 61 [in_i] eCW1 ([facility]) Body weight 160 [lb_av] 160 [lb_av] eCW1 ([facility]) Body mass index (BMI) [Ratio] 30.23 kg/m2 30.23 kg/m2 W1 ([facility]) Systolic blood pressure 108 mm[Hg] 108 mm[Hg] e CW1 ([facility]) Diastolic blood pressure 66 mm[Hg] 66 mm[Hg] eCW1 ([facility])
[2021-05-08] MEDS: COMBIVENT RESPIMAT 100-20MCG INHALER 4GM INH SCH ×3 (09:10→10:32)
[2021-05-08] MEDS ORDERED: cefTRIAXone SOD 2 GM in D5W MINI-BAG PLUS 50 ML IV ONE (09:15)
[2021-05-08 09:33] LABS: HEMATOCRIT 52.6 % (36.0-47.0); MEAN CORPUSCULAR HEMOGLOBIN 29.4 pg (27.0-33.0); MEAN CORPUSCULAR HGB CONC 31.4 g/dl (32.0-36.5); MEAN CORPUSCULAR VOLUME 93.8 fl (80.0-96.0); PLATELET COUNT, AUTOMATED 228 10^3/uL (150-450); RED BLOOD COUNT 5.61 10^6/uL (4.00-5.40); WHITE BLOOD COUNT 26.2 10^3/uL (4.0-10.0)
[2021-05-08 09:38] LABS: HEMOGLOBIN 16.5 g/dl (12.0-15.5)
--- NOTE | 2021-05-08 09:41 | REP ---
INDICATION: Coronavirus workup. COMPARISON: 06/11/2020. TECHNIQUE: Single portable AP view of the chest was performed. FINDINGS: There is bibasilar infiltrate, right greater than left. The heart and mediastinum appear unchanged. The visualized osseous structures appear intact. IMPRESSION: Bibasilar infiltrate right greater than left. <Electronically signed by Francois Cardenas > 05/08/21 0937
[2021-05-08 09:43] LABS: INR 1.36; PROTHROMBIN TIME 17.2 SECONDS (12.7-14.5)
[2021-05-08 09:44] LABS: PARTIAL THROMBOPLASTIN TIME 33.2 SECONDS (25.9-37.0)
[2021-05-08 09:46] LABS: D-DIMER QUANT 1573.42 ng/ml (<500)
[2021-05-08 10:01] LABS: ATYPICAL LYMPH 1 % (0-5); LYMPHOCYTES 1 % (16-44); MONOCYTES 3 % (0-5); NEUTROPHILS 55 % (28-66)
[2021-05-08 10:02] LABS: HYPOCHROMASIA 1+; PLATELET ESTIMATE NORMAL (NORMAL)
[2021-05-08 10:21] LABS: ALT/SGPT 32 U/L (12-78); BILIRUBIN,TOTAL 0.7 MG/DL (0.2-1.0); BLOOD UREA NITROGEN 53 MG/DL (7-18); CALCIUM LEVEL 8.4 MG/DL (8.8-10.2); CARBON DIOXIDE LEVEL 24 MEQ/L (21-32); CHLORIDE LEVEL 108 MEQ/L (98-107); CK-MB VALUE MASS < 1.0 NG/ML (<3.6); CPK CREATINE PHOSPHOKINASE 43 U/L (26-192); CREATININE FOR GFR 2.29 MG/DL (0.55-1.30); FERRITIN 401 NG/ML (8-252); GLOMERULAR FILTRATION RATE 21.6 (>32); GLUCOSE, FASTING 126 MG/DL (70-100); LDH LACTATE DEHYDROGENASE 306 U/L (84-246); MAGNESIUM LEVEL 2.2 MG/DL (1.8-2.4); MB/CK RELATIVE INDEX 2.33 (< OR =4); POTASSIUM SERUM 6.4 MEQ/L (3.5-5.1); SODIUM LEVEL 137 MEQ/L (136-145); TOTAL PROTEIN 7.2 GM/DL (6.4-8.2); TROPONIN I < 0.02 NG/ML (< 0.10)
[2021-05-08] MEDS: IPRATROPIUM 0.5MG/ALBUTEROL 2.5MG INH SOL UD 3ML (DUONEB) NEB SCH ×5 (10:32→11:30)
[2021-05-08] MEDS ORDERED: NS 1,000 ML IV SCH ×2 (10:35→14:50)
[2021-05-08] MEDS ORDERED: SODIUM BICARBONATE 8.4% INJ 50 ML SYRINGE IV STA (10:44)
[2021-05-08] MEDS ORDERED: HumuLIN R (REGULAR) INSULIN (NovoLIN R) **100U/ML** PER UNIT IV ONE (10:45)
[2021-05-08] MEDS ORDERED: DEXTROSE 50% 50 ML SYRINGE IV STA ×2 (10:45→14:47)
[2021-05-08] MEDS ORDERED: AZITHROMYCIN INJ 500 MG, VIAL MATE ADAPTER 1 EACH in NS 250 ML IV ONE (11:00)
[2021-05-08] MEDS ORDERED: CALCIUM CHLORIDE 10% 1 GM in D5W 100 ML IV ONE (11:00)
[2021-05-08] MEDS ORDERED: SOD POLYSTYRENE SULFONATE SUSP 15 GM/60 ML UD PO ONE ×2 (11:15→15:15)
[2021-05-08] MEDS ORDERED: APAP325T4 PO (11:19)
[2021-05-08] MEDS ORDERED: CARD180C4 PO (11:19)
[2021-05-08] MEDS ORDERED: POTA20TA6 PO (11:19)
[2021-05-08] MEDS ORDERED: SENN-23 PO (11:19)
[2021-05-08] MEDS ORDERED: ELIQ2.5T PO (11:19)
[2021-05-08] MEDS ORDERED: FURO40TA2 PO (11:19)
[2021-05-08] MEDS ORDERED: ALEN70TA82 PO (11:19)
[2021-05-08] MEDS ORDERED: HOME MED LIST COMPLETE! XX SCH (11:20)
--- OUTSIDE RECORDS SUMMARY | 2021-05-08 11:49 | CCD ---
Author Author [facility] Organization [facility] Address Unknown Phone Unavailable Support Name Relationship Address Phone ETHAN GARETT Next Of Kin [address] [address] CORI LONG Next Of Kin [address] [place] [address] RE Next Of Kin Unknown Unavailable JENNIFER GARETT Next Of Kin [address] [place] [address] LATOYA LONG Next [place] Kin [address] [place] [address] [facility] [address] [facility] [address] [place] [address] [facility] Next Of Kin [address] [place] [address] RAYRAY LONG Next [place] [address] [place] [address] [facility] Next Of Kin [address] [place] [address] JAN LONG Next Of Kin [address] [address] [address] LONG [address] [id number] Re-disclosure Warning The records that you are [...] is protected by Article 27-F of the [facility] Public Health law. If you continue you may have access to information: Regarding HIV / AIDS; Provided by facilities licensed or operated by the [facility] Office of Mental Health; or Provided by the [facility] Office for People With Developmental Disabilities. If such information is present, then the following [facility] mandated warning applies: This information has [...] law may result in a fine or usp sentence or both. A general authorization for the release of medical or other information is NOT sufficient authorization for further disc losure. Family History Family Member Name Family Member Gender Family Member Status Date o f Status Description Data Source(s) Unknown Male Problem MEDENT ([facility]) Encounters Encounter Providers Location Date Indications Data Source(s ) (Cyst[facility]) Urology [address] [place] [address] 11/02/2020 12:00:00 AM EDT eCW1 ([facility]) Outpatient [address] [facility] [address] 11/01/2020 12:00:00 AM EDT eCW1 ([facility]) Unknown [address] [facility] [place] [address] 11/01/2020 12:00:00 AM EDT eCW1 ([facility]) Outpatient [address] [facility] [place] [address] 10/26/2020 12:00:00 AM EDT eCW1 ([facility]) Immunizations Vaccine Date Status Description Data Source(s) COVID-19 VACCINE Pfizer 08/07/2020 12:00:00 AM EST completed [facility] Vaccine Series Complete: YESThis Data wa s Submitted to [facility] Via [facility]. COVID-19 VACCINE Pfizer 07/17/2020 12:00:00 AM EST completed [facility] Vaccine Series Complete: NOThis Data was Submitted to [facility] Via [facility]. Medications Medication Brand Name Start Date Product [...] type / Coverage type Policy ID Covered democrat ID Covered democrat's relationship to [place] Policy [place] Plan Information [employer] [id number] MEDICARE [id number] SP [id number] A MEDICARE [id number] SP [id number] [id number] A Medicare [place] Medicare Primary [id number] Self [id number] Ghi/Emblem HLTH (pr) Medigap Part B [id number] Self [id number] Ghi/Emblem HLTH (pr) Medigap Part B [id number] Self [id number] Medicare [place] Medicare Primary [id number] Self [id number] Medicare [place] Medicare Primary [id number] Self [id number] Ghi/Emblem HLTH (pr) Medigap Part B [id number] Self [id number] Medicare [place] Medicare Primary [id number] Self [id number] Ghi/Emblem HLTH (pr) Medigap Part B [id number] Self [id number] Pomco (pr) Medigap Part B [id number] Self [id number] Pomco (pr) Medigap Part B [id number] Self [id number] Pomco (pr) Medigap Part B [id number] Self [id number] Pomco (pr) Medigap Part B [id number] Self [id number] R [facility] [id number] SP [id number] NGS MEDICARE NEW HAMPHIR O [id number] S [id number] MEDICAID M [id number] S [id number] MEDICARE - [place] MCR [id number] S [id number] MEDICARE C [id number] S [id number] UMR O [id number] S [id number] [facility] [id number] SP [id number] [place] [id number] SP [id number] POMCO PPO O [id number] S [id number] MEDICARE C [id number] S [id number] A POMCO [id number] SP [id number] [place] [id number] SP [id number] A MEDICARE [id number] SP [id number] A POMCO [id number] SP [id number] SELF PAY Umr (pr) Medigap Part B [id number] Self [id number] MEDICARE [id number] SP [id number] MEDICAID [id number] SP [id number] Problems, Conditions, and Diagnoses Code Display Name Description Problem Type Effective Dates Data Source(s) N32.9 [id number] Lesion of bladder Problem 11/01/2020 12:00:0 0 AM EDT eCW1 ([facility]) Surgeries/Procedures Procedure Description Date Indications Data Source(s) Medication: Lidocaine HCl 2% Jelly 5mL Intravesically 11/02/2020 12:00:00 AM EDT eCW1 ([facility]) Results ID Date Data Source [id number] 04/30/2021 11:00:00 AM EDT [facility] Name Value Range Interpretation Code Description Data Vilma rce(s) Supporting Document(s) SARS coronavirus 2 RNA [Presence] in Res piratory specimen by STEVE with probe detection POSITIVE [facility] This lab was ordered by [facility] a nd reported by [facility]. ID Date Data Source 33 04/29/2021 12:00:00 AM EDT [facility] Name Value Range Interpretation Code Description Data Vilma rce(s) Supporting Document(s) SARS coronavirus 2 Ag NEGATIVE [facility] This lab was ordered by [facility] and reported by [facility]. ID Date Data Source 28 04/15/2021 12:00:00 AM EDT [facility] Name Value Range Interpretation Code Description Data Vilma rce(s) Supporting Document(s) SARS coronavirus 2 Ag NEGATIVE [facility] This lab was ordered by [facility] and reported by [facility]. ID Date Data Source 32 04/03/2021 12:00:00 AM EDT [facility] Name Value Range Interpretation Code Description Data Vilma rce(s) Supporting Document(s) SARS coronavirus 2 Ag NEGATIVE [facility] This lab was ordered by [facility] and reported by [facility]. ID Date Data Source 30 12/13/2020 12:00:00 AM EDT [facility] Name Value Range Interpretation Code Description Data Vilma rce(s) Supporting Document(s) SARS coronavirus 2 Ag NEGATIVE [facility] This lab was ordered by [facility] and reported by [facility]. ID Date Data Source 29 11/26/2020 12:00:00 AM EDT [facility] Name Value Range Interpretation Code Description Data Vilma rce(s) Supporting Document(s) SARS coronavirus 2 Ag NEGATIVE [facility] This lab was ordered by [facility] and reported by [facility]. ID Date Data Source 27 11/19/2020 12:00:00 AM EDT [facility] Name Value Range Interpretation Code Description Data Vilma rce(s) Supporting Document(s) SARS coronavirus 2 Ag NEGATIVE [facility] This lab was ordered by [facility] and reported by [facility]. ID Date Data Source 26 11/06/2020 12:00:00 AM EDT [facility] Name Value Range Interpretation Code Description Data Vilma rce(s) Supporting Document(s) SARS coronavirus 2 Ag NEGATIVE [facility] This lab was ordered by [facility] and reported by [facility]. ID Date Data Source [id number] 09/26/2020 11:50:00 AM EDT [facility] Name Value Range Interpretation Code Description Data Vilma rce(s) Supporting Document(s) SARS coronavirus 2 RNA Not Detected [facility] This lab was ordered by [facility] and reported by [facility]. ID Date Data Source [id number] 09/19/2020 07:00:00 AM EST [facility] Name Value Range Interpretation Code Description Data Vilma rce(s) Supporting Document(s) SARS coronavirus 2 RNA Not Detected [facility] [place] This lab was ordered by [facility] and reported by [facility]. ID Date Data Source [id number] 09/05/2020 10:10:00 AM EST [facility] Name Value Range Interpretation Code Description Data Vilma rce(s) Supporting Document(s) SARS coronavirus 2 RNA Not Detected [facility] [place] This lab was ordered by [facility] and reported by [facility]. ID Date Data Source [id number] 08/29/2020 10:15:00 AM EST [facility] Name Value Range Interpretation Code Description Data Vilma rce(s) Supporting Document(s) SARS coronavirus 2 RNA Not Detected [facility] [place] This lab was ordered by [facility] and reported by [facility]. ID Date Data Source [id number] 08/22/2020 10:00:00 AM EST [facility] Name Value Range Interpretation Code Description Data Vilma rce(s) Supporting Document(s) SARS coronavirus 2 RNA Not Detected [facility] [place] This lab was ordered by [facility] and reported by [facility]. ID Date Data Source [id number] 08/15/2020 10:00:00 AM EST [facility] Name Value Range Interpretation Code Description Data Vilma rce(s) Supporting Document(s) SARS coronavirus 2 RNA Not Detected [facility] [place] This lab was ordered by [facility] and reported by [facility]. ID Date Data Source [id number] 08/08/2020 09:50:00 AM EST [facility] Name Value Range Interpretation Code Description Data Vilma rce(s) Supporting Document(s) SARS coronavirus 2 RNA Not Detected [facility] [place] This lab was ordered by [facility] and reported by [facility]. ID Date Data Source [id number] 08/01/2020 08:00:00 AM EST [facility] Name Value Range Interpretation Code Description Data Vilma rce(s) Supporting Document(s) SARS coronavirus 2 RNA Not Detected [facility] This lab was ordered by [facility] and reported by [facility]. ID Date Data Source [id number] 07/25/2020 11:00:00 AM EST [facility] Name Value Range Interpretation Code Description Data Vilma rce(s) Supporting Document(s) SARS coronavirus 2 RNA Not Detected [facility] [place] This lab was ordered by [facility] and reported by [facility]. ID Date Data Source [id number] 07/18/2020 11:00:00 AM EST [facility] Name Value Range Interpretation Code Description Data Vilma rce(s) Supporting Document(s) SARS coronavirus 2 RNA Not Detected [facility] This lab was ordered by [facility] and reported by [facility]. ID Date Data Source [id number] 07/11/2020 08:41:00 AM EST [facility] Name Value Range Interpretation Code Description Data Vilma rce(s) Supporting Document(s) SARS coronavirus 2 RNA [facility] This lab was ordered by [facility] and reported by [facility]. ID Date Data Source [id number] 07/04/2020 05:10:00 AM EST [facility] Name Value Range Interpretation Code Description Data Vilma rce(s) Supporting Document(s) SARS coronavirus 2 RNA [facility] This lab was ordered by [facility] and reported by [facility]. ID Date Data Source [id number] 06/27/2020 10:35:00 AM EST [facility] Name Value Range Interpretation Code Description Data Vilma rce(s) Supporting Document(s) SARS coronavirus 2 RNA [facility] This lab was ordered by [facility] and reported by [facility]. ID Date Data Source [id number] 06/20/2020 12:00:00 PM EST [facility] Name Value Range Interpretation Code Description Data Vilma rce(s) Supporting Document(s) SARS coronavirus 2 RNA [facility] This lab was ordered by [facility] and reported by [facility]. ID Date Data Source [id number] 06/16/2020 08:30:00 AM EST [facility] Name Value Range Interpretation Code Description Data Vilma rce(s) Supporting Document(s) SARS coronavirus 2 RNA [facility] This lab was ordered by [facility] and reported by [facility]. ID Date Data Source [id number] 06/13/2020 10:30:00 AM EST [facility] Name Value Range Interpretation Code Description Data Vilma rce(s) Supporting Document(s) SARS coronavirus 2 RNA [facility] This lab was ordered by [facility] and reported by [facility]. ID Date Data Source [id number] 06/06/2020 11:00:00 AM EST [facility] Name Value Range Interpretation Code Description Data Vilma rce(s) Supporting Document(s) SARS coronavirus 2 RNA [facility] This lab was ordered by [facility] and reported by [facility]. ID Date Data Source [id number] 05/30/2020 10:25:00 AM EST [facility] Name Value Range Interpretation Code Description Data Vilma rce(s) Supporting Document(s) SARS coronavirus 2 RNA [facility] This lab was ordered by [facility] and reported by [facility]. ID Date Data Source [id number] 05/24/2020 02:49:00 PM EST [facility] Name Value Range Interpretation Code Description Data Vilma rce(s) Supporting Document(s) SARS coronavirus 2 RNA [facility] This lab was ordered by [facility] and reported by [facility]. Procedure Social History No Information Vital Signs ID Date Data Source UNK Name Value Range Interpretation Code Description Data Source(s) Body weight 160 [lb_av] 160 [lb_av] eCW1 ([facility]) Body height 61 [in_i] 61 [in_i] eCW1 ([facility]) Body mass index (BMI) [Ratio] 30.23 kg/m2 30.23 kg/m2 W1 ([facility]) Heart rate 139 /min 139 /min eCW1 ([facility]) Respiratory rate 18 /min 18 /min eCW1 ([facility]) Body temperature 98.3 [degF] 98.3 [degF] eCW1 ( [facility]) Systolic blood pressure 134 mm[Hg] 134 mm[Hg] e CW1 ([facility]) Diastolic blood pressure 93 mm[Hg] 93 mm[Hg] eCW1 ([facility]) Body weight 160 [lb_av] 160 [lb_av] eCW1 ([facility]) Body height 61 [in_i] 61 [in_i] eCW1 ([facility]) Body mass index (BMI) [Ratio] 30.23 kg/m2 30.23 kg/m2 W1 ([facility]) Heart rate 117 /min 117 /min eCW1 ([facility]) Respiratory rate 18 /min 18 /min eCW1 ([facility]) Body temperature 96.8 [degF] 96.8 [degF] eCW1 ( [facility]) Systolic blood pressure 118 mm[Hg] 118 mm[Hg] e CW1 ([facility]) Diastolic blood pressure 68 mm[Hg] 68 mm[Hg] eCW1 ([facility]) Body mass index (BMI) [Ratio] 30.23 kg/m2 30.23 kg/m2 eCW1 ([facility]) Body weight 160 [lb_av] 160 [lb_av] eCW1 ([facility]) Body height 61 [in_i] 61 [in_i] eCW1 ([facility]) Systolic blood pressure 108 mm[Hg] 108 mm[Hg] e CW1 ([facility]) Diastolic blood pressure 66 mm[Hg] 66 mm[Hg] eCW1 ([facility])
[2021-05-08] MEDS ORDERED: LIDOCAINE 2% 5ML JELLY UROJET TOP ONE (11:55)
[2021-05-08] MEDS ORDERED: DOXYCYCLINE HYCLATE 100 MG in D5W MINI-BAG PLUS 100 ML IV SCH (12:00)
[2021-05-08] MEDS ORDERED: LR 1,000 ML IV SCH (12:00)
[2021-05-08] MEDS ORDERED: dexameTHASONE 20MG/5ML VIAL (J1100 PER 1MG) IV SCH (12:00)
[2021-05-08 12:26] LABS: DIGOXIN LEVEL 0.3 NG/ML (0.5-2.0)
[2021-05-08 14:28] LABS: ABG HCO3 22.2 MEQ/L (22.0-26.0); ABG PARTIAL PRESSURE O2 125.7 mmHg (75.0-100.0); ABG STANDARD HCO3 17.4 MEQ/L (22.0-26.0); ABG TOTAL CO2 24.4 MEQ/L (23.0-31.0)
[2021-05-08 14:29] LABS: ABG pH (ARTERIAL) 7.105 UNITS (7.350-7.450)
[2021-05-08 14:30] LABS: ABG PARTIAL PRESSURE CO2 72.2 mmHg (35.0-45.0)
[2021-05-08 14:43] LABS: CALCIUM LEVEL 8.9 MG/DL (8.8-10.2); CREATININE FOR GFR 2.57 MG/DL (0.55-1.30); GLOMERULAR FILTRATION RATE 18.9 (>32); POTASSIUM SERUM 6.3 MEQ/L (3.5-5.1)
[2021-05-08] MEDS ORDERED: HumuLIN R (REGULAR) INSULIN (NovoLIN R) **100U/ML** PER UNIT IV STA (14:47)
[2021-05-08] MEDS ORDERED: REMDESIVIR 200 MG in NS 250 ML IV ONE (15:00)
[2021-05-08] MEDS ORDERED: SODIUM CHLORIDE 0.9% INJ 10 ML SYR IV ONE (15:00)
[2021-05-08] MEDS ORDERED: CALCIUM GLUCONATE 1,000 MG in D5W MINI-BAG PLUS 100 ML IV ONE (15:10)
[2021-05-08] MEDS ORDERED: FUROSEMIDE 40MG/4ML VIAL (J1940) IV ONE (15:15)
[2021-05-08] MEDS ORDERED: SCOPOLAMINE 1MG TRANSDERMAL PATCH TOP PRN (16:55)
[2021-05-08 17:00] VITALS: BP 110/74
[2021-05-08] MEDS: LORazepam 2 MG/ML VIAL IV PRN ×2 (17:59→20:48)
[2021-05-08] MEDS: MORPHINE 2 MG/ML 1ML VIAL (J2270) IV PRN ×2 (18:00→20:48)
--- NOTE | 2021-05-08 18:25 | HPEPDOC ---
[facility] Medical History & Physical Date of Admission May 08, 2021 Date of Service: May 08, 2021 Attending Physician: LIZA ARREOLA MD History and Physical CHIEF COMPLAINT: SOB, cough HISTORY OF PRESENT ILLNESS: Sheree is an 85-year-old female past medical history COPD, CHF, A. fib on Xarelto, Alzheimer's dementia, CKD 3 who presented to [facility] ED via EMS with worsening shortness of breath. As per EMS, patient is Covid positive and had SPO2 70s% RA, SPO2 88-90% on 4L O2, following 10 mg of Decadron giving en route to hospital. According to ED nurse, upon initial presentation, patient was noted to be alert, oriented, and at her baseline. She was able to provide the ED nurse with a limited history and cooperate in physical examination. ED labs significant for K+ 6.4, BUN 53, Cr 2.29, elevated inflammatory markers. Upon evaluation for admission to the hospitalist team, patient was found to be unresponsive, unable to follow commands, and unable to provide a history. When talking to the ED nurse, patient was noted to have decompensated significantly with regards to respiratory status and oxygen requirement, and was no longer at her baseline with regards to mentation. Difficult to obtain complete history and perform comprehensive physical evaluation due to patient's current status. PAST MEDICAL HISTORY: 1. COPD 2. CHF 3. A. fib on Xarelto 4. Alzheimer's dementia 5. CAD 6. CKD3 7. HTN 8. Depression/anxiety 9. GERD PAST SURGICAL HISTORY: Unknown SOCIAL HISTORY: Resides in: [facility] Tobacco use: Former ETOH: Unknown Illicit drug use: Unknown FAMILY HISTORY: Unknown ALLERGIES: Please see below. REVIEW OF SYSTEMS: As per [facility] HOME MEDICATIONS: Please see below. PHYSICAL EXAMINATION: VITAL SIGNS: Temperature 96.8, pulse 142, respiratory rate 26, blood pressure 114/69, pulse oximetry 94% on 4L NC. GENERAL APPEARANCE: Laying in stretcher, uncomfortable, gurgling on her secretions HEENT: NC/AT, no EOMI, nasal cannula in place, dry mucous membranes, poor dentition CARDIOVASCULAR: Tachycardic, regular rhythm LUNGS: Coarse breath sounds bilateral lungs, wheezing bilateral lower lungs, no rales/rhonchi ABDOMEN: Soft, nontender, nondistended EXTREMITIES: No edema, thready pulses bilateral lower extremities NEUROLOGICAL: Not alert, responsive to verbal and physical stimuli occasionally, unable to follow commands, nonpurposeful movements of extremities LABORATORY DATA: See below. IMAGING: (05/08) CXR Bibasilar infiltrate right greater than left. MICROBIOLOGY: Please see below. ASSESSMENT/PLAN: Sheree is an 85-year-old female history of COPD, CHF, A. fib on Xarelto, Alzheimer's dementia, CKD 3 who presented with worsening shortness of breath and was found to be Covid19+ with SpO2 94% 4L NC, K+ 6.4, BUN 53 and Cr 2.29, concerning for acute hypoxic respiratory failure 2/2 COVID-19, SHERRY on CKD 3, hyperkalemia. #Acute hypoxic respiratory failure, most likely 2/2 COVID-19 WBC 26.2, LA 2.1, pro-Carlos Eduardo 8.01, CRP 17.4, LDH 306 SpO2 94% 4 L NC Start baricitinib, Decadron Start ceftriaxone, doxycycline Obtain U/A with reflex culture Obtain sputum culture Monitor labs daily We will discuss with pulmonology for further recommendations #SHERRY on CKD3 Patient's baseline Cr 1.3 BUN 53, Cr 2.29, GFR 21.6 Start IVF Monitor I's and O's Continue to monitor labs daily #Hyperkalemia, acute Patient's K+ 6.4 upon initial ED evaluation. She received CaCl2, insulin Start Kayexalate 1 g Recheck BMP #Altered mental status, acute Will check ABG Order head CT #A. fib, chronic- stable HR 142. Patient was found to have regular rhythm on physical examination today Continue home Eliquis #COPD, chronic Continue home Breo Ellipta, prednisone #HTN, chronicstable BP 114/69 Continue home diltiazem #CHF, chronic Patient does not appear to be fluid overloaded on physical examination today Continue home Lasix #Alzheimer's dementia, chronic Difficult to assess patient's baseline given current status physical examination. Will reach out to [facility] keep home with regards to patient's HPI and baseline mentation and function. #GERD, chronicstable Continue home famotidine #Depression/anxiety, chronicstable Continue home sertraline #DVT prophylaxis Continue home Eliquis DIET: NPO ACTIVITY: Bedrest, fall precautions DISPO: Pending clinical improvement CODE STATUS: DNR/DNI, limited medical intervention Of note, patient was found to desaturate on 4 L NC and was placed on nonrebreather, as per respiratory therapy. Due to her current COVID19+ status, worsening mentation from baseline and initial ED presentation, and MOLST form, patient was considered for comfort measures only. After speaking with patient's son, who is her healthcare proxy, he requested continuation of full intervention and aggressive medical therapy up to the point of resuscitation and intubation. Upon seeing his mother and discussing with the provider goals of care, he did decide to make her comfort measures only. 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 In line with comfort measures, patient received morphine, scopolamine, Ativan. She will also receive regular diet and suctioning as needed. Attending Attestation: I performed a history and physical examination of the patient and discussed her management with the resident. I reviewed the resident's note and agree with the documented findings and plan of care. Vital Signs Vital Signs Date Time Temp Pulse Resp B/P (MAP) Pulse Ox O2 Delivery O2 Flow Rate FiO2 05/08/21 11:00 137 24 05/08/21 10:21 Nasal Cannula 4.0 05/08/21 10:13 96.8 05/08/21 09:53 94 05/08/21 09:46 114/69 (84) Laboratory Data Labs 24H Laboratory Tests 2 05/08/21 08:52: Prothrombin Time 17.2H, Prothromb Time International Ratio 1.36, Activated Partial Thromboplast Time 33.2, Fibrinogen 656H, D-Dimer, Quantitative 1573.42H, Anion Gap 5L, Glomerular Filtration Rate 21.6L, Calcium Level 8.4L, Magnesium Level 2.2, Ferritin 401H, Total Bilirubin 0.7, Aspartate Amino Transf (AST/SGOT) 21, Alanine Aminotransferase (ALT/SGPT) 32, Alkaline Phosphatase 72, Lactate Dehydrogenase 306H, Total Creatine Kinase 43, Creatine Kinase MB < 1.0, Creatine Kinase MB Relative Index 2.33, Troponin I < 0.02, C-Reactive Protein, Quantitative 17.40H, Total Protein 7.2, Albumin 3.0L, Albumin/Globulin Ratio 0.7L, Digoxin Level 0.3L 05/08/21 08:54: Neutrophils (%) (Auto) , Nucleated Red Blood Cells % (auto) 0.0, Neutrophils 55, Band Neutrophils 40H, Lymphocytes (Manual) 1L, Monocytes (Manual) 3, Atypical Lymphocytes 1, Hypochromasia 1+, Platelet Estimate NORMAL, Lactic Acid Level 2.1*H, Procalcitonin 8.01 05/08/21 11:52: Blood Gas Bicarbonate Standard 17.4L, Arterial Blood pH 7.105*L, Arterial Blood Partial Pressure CO2 72.2*H, Arterial Blood Partial Pressure O2 125.7H, Arterial Blood Total CO2 24.4, Arterial Blood HCO3 22.2, Arterial Blood Base Excess - 9.0L, Arterial Blood Oxygen Saturation 98.0 05/08/21 13:43: Anion Gap 7L, Glomerular Filtration Rate 18.9L, Calcium Level 8.9, Lactic Acid Level 2.5*H, Lactic Acid Followup at 4 Hours 2.5*H CBC/BMP Laboratory Tests 05/08/21 08:52 05/08/21 08:54 05/08/21 13:43 Microbiology Microbiology 05/08/21 Respiratory Virus Panel (PCR) ([facility]) - Final, Complete SARS-CoV-2 (COVID 19) 05/08/21 Blood Culture, Received Pending 05/08/21 Blood Culture, Received Pending Home Medications Scheduled Acetaminophen (Acetaminophen) 325 Mg Tablet, 650 MG PO BID Alendronate Sodium (Alendronate Sodium) 70 Mg Tablet, 70 MG PO QWEEK THURSDAY AT 0600 Apixaban (Eliquis) 2.5 Mg Tablet, 2.5 MG PO BID Diltiazem Hcl (Cardizem Cd) 180 Mg Cap.er.24h, 180 MG PO BID Famotidine (Famotidine) 20 Mg Tab, 20 MG PO DAILY Fluticasone/Vilanterol (Breo Ellipta 100-25 Mcg INH) 1 Each Blst.w.dev, 1 PUFF INH DAILY Furosemide (Furosemide) 40 Mg Tablet, 40 MG PO BID 0830/1330 Ipratropium/Albuterol Sulfate (Iprat-Albut 0.5-3(2.5) mg/3 ml) 1 Shayna Shayna, 1 VIAL NEB TID Potassium Chloride (Potassium Chloride) 20 Meq Tab.er.prt, 20 MEQ PO TID Prednisone (Prednisone) 10 Mg Tablet, 10 MG PO DAILY Sennosides/Docusate Sodium (Senna-S Tablet) 1 Each Tablet, 1 TAB PO BID Sertraline Hcl (Zoloft) 100 Mg Tab, 150 MG PO DAILY Scheduled PRN Acetaminophen (Acetaminophen) 325 Mg Tablet, 650 MG PO Q4H PRN for PAIN LEVEL 1- 4 Bisacodyl (Dulcolax) 10 Mg Sup, 10 MG IN DAILY PRN for CONSTIPATION Magnesium Hydroxide (Milk of Magnesia) 400 Mg/5 Ml Oral.susp, 2,400 MG PO DAILY PRN for CONSTIPATION Sodium Phosphate,[place]-Dibasic (Enema) 133 Ml Enema, 1 DEBBIE IN DAILY PRN for CONSTIPATION Allergies Coded Allergies: ciprofloxacin (Verified Allergy, Unknown, UNKNOWN, 06/25/19) haloperidol (Verified Allergy, Unknown, UNKNOWN, 06/25/19) propoxyphene (Verified Allergy, Unknown, UNKNOWN, 06/25/19) A-FIB/CHADSVASC A-FIB History Current/History of A-Fib/PAF?: Yes Current PO Anticoag Therapy: Yes Destiny Pollard DO May 08, 2021 18:25 LIZA ARREOLA MD May 09, 2021 06:28
[2021-05-08] MEDS ORDERED: BUDESONIDE 0.5 MG/2 ML INHALATION SUSPENSION INH SCH (20:00)
[2021-05-09] MEDS: LORazepam 2 MG/ML VIAL IV PRN (00:22)
[2021-05-09] MEDS: MORPHINE 2 MG/ML 1ML VIAL (J2270) IV PRN (00:22)
--- NOTE | 2021-05-09 07:59 | DS.PDOC ---
Discharge Summary General Date of Admission May 08, 2021 at 11:33 Date of Discharge 05/08/21 Attending Physician: LIZA ARREOLA MD Discharge Summary PROCEDURES PERFORMED DURING STAY: None ADMITTING DIAGNOSES: 1. Acute hypoxic respiratory failure, most likely 2/2 COVID-19 PNA 2. SHERRY on CKD 3 3. Hyperkalemia 4. Altered mental status 5. Hx CHF 6. Hx Afib on Eliquis DISCHARGE DIAGNOSES: 1. Sepsis, 2/2 Covid 19 PNA vs bacterial PNA 2. Metabolic encephalopathy 2/2 Covid 19 3. Hx unspecified CHF, EF 70% with diastolic dysfunction 4. Hx Afib on Eliquis COMPLICATIONS/CHIEF COMPLAINT: Covid-19, Pneumonia. HISTORY OF PRESENT ILLNESS: Sheree is an 85-year-old female past medical history COPD, CHF, A. fib on Eliquis, Alzheimer's dementia, CKD 3 who presented to [facility] ED via EMS with worsening shortness of breath. As per EMS, patient is Covid positive and had SPO2 70s% RA, SPO2 88-90% on 4L O2, following 10 mg of Decadron giving en route to hospital. According to ED nurse, upon initial presentation, patient was noted to be alert, oriented, and at her baseline. She was able to provide the ED nurse with a limited history and cooperate in physical examination. ED labs significant for K+ 6.4, BUN 53, Cr 2.29, elevated inflammatory markers. HOSPITAL COURSE: Upon evaluation for admission to the hospitalist team, patient was found to be unresponsive, unable to follow commands, and unable to provide a history. When talking to the ED nurse, patient was noted to have decompensated significantly with regards to respiratory status and oxygen requirement, and was no longer at her baseline with regards to mentation. Difficult to obtain complete history and perform comprehensive physical evaluation due to patient's current status. Patient was found to desaturate on 4L NC and was placed on nonrebreather, as per respiratory therapy. Respiratory therapy, there was difficulty clearing patient's creations with external suctioning. Patient was unresponsive and found to be metabolic encephalopathy with [place] Coma Scale 4. Patient was determined to be septic with WBC 26.2 with 40% bands, pulse 130, respiratory rate 26, elevated pro-Carlos Eduardo. Due to her current COVID19+ status, worsening mentation from baseline and initial ED presentation, and MOLST form, patient was considered for comfort measures only. After speaking with patient's son, who is her healthcare proxy, he requested continuation of full intervention and aggressive medical therapy up to the point of resuscitation and intubation. Upon seeing his mother and discussing with the provider goals of care, he did decide to make her comfort measures only. Patient will be transitioned [employer]. In line with comfort measures, patient received morphine, scopolamine, Ativan. She will also receive regular diet and suctioning as needed. Patient that evening. DISCHARGE MEDICATIONS: Please see below. ALLERGIES: Please see below. PHYSICAL EXAMINATION ON DISCHARGE: NOT PRESENT ON EXPIRATION LABORATORY DATA: Please see below. IMAGING: PROGNOSIS: ACTIVITY: DIET: DISCHARGE PLAN: DISPOSITION: 20 . DISCHARGE INSTRUCTIONS: ITEMS TO FOLLOWUP ON ON OUTPATIENT: DISCHARGE CONDITION: TIME SPENT ON DISCHARGE: 35 minutes Attending Attestation: I agree with the findings as documented in the residents note. Vital Signs/I&Os Vital Signs Date Time Temp Pulse Resp B/P (MAP) Pulse Ox O2 Delivery O2 Flow Rate FiO2 05/08/21 20:48 4.0 05/08/21 20:48 28 05/08/21 17:08 121 99 05/08/21 17:00 110/74 (86) 05/08/21 10:21 Nasal Cannula 05/08/21 10:13 96.8 I&O- Last 24 Hours up to 6 AM 05/09/21 06:00 Intake Total 1315 ml Balance 1315 ml Laboratory Data Labs 24H Laboratory Tests 2 05/08/21 08:52: Prothrombin Time 17.2H, Prothromb Time International Ratio 1.36, Activated Partial Thromboplast Time 33.2, Fibrinogen 656H, D-Dimer, Quantitative 1573.42H, Anion Gap 5L, Glomerular Filtration Rate 21.6L, Calcium Level 8.4L, Magnesium Level 2.2, Ferritin 401H, Total Bilirubin 0.7, Aspartate Amino Transf (AST/SGOT) 21, Alanine Aminotransferase (ALT/SGPT) 32, Alkaline Phosphatase 72, Lactate Dehydrogenase 306H, Total Creatine Kinase 43, Creatine Kinase MB < 1.0, Creatine Kinase MB Relative Index 2.33, Troponin I < 0.02, C-Reactive Protein, Quantitative 17.40H, Total Protein 7.2, Albumin 3.0L, Albumin/Globulin Ratio 0.7L, Digoxin Level 0.3L 05/08/21 08:54: Neutrophils (%) (Auto) , Nucleated Red Blood Cells % (auto) 0.0, Neutrophils 55, Band Neutrophils 40H, Lymphocytes (Manual) 1L, Monocytes (Manual) 3, Atypical Lymphocytes 1, Hypochromasia 1+, Platelet Estimate NORMAL, Lactic Acid Level 2.1*H, Procalcitonin 8.01 05/08/21 11:52: Blood Gas Bicarbonate Standard 17.4L, Arterial Blood pH 7.105*L, Arterial Blood Partial Pressure CO2 72.2*H, Arterial Blood Partial Pressure O2 125.7H, Arterial Blood Total CO2 24.4, Arterial Blood HCO3 22.2, Arterial Blood Base Excess - 9.0L, Arterial Blood Oxygen Saturation 98.0 05/08/21 13:43: Anion Gap 7L, Glomerular Filtration Rate 18.9L, Calcium Level 8.9, Lactic Acid Level 2.5*H, Lactic Acid Followup at 4 Hours 2.5*H CBC/BMP Laboratory Tests 05/08/21 08:52 05/08/21 08:54 05/08/21 13:43 Microbiology Microbiology 05/08/21 Respiratory Virus Panel (PCR) ([facility]) - Final, Complete SARS-CoV-2 (COVID 19) 05/08/21 Blood Culture, Received Pending 05/08/21 Blood Culture - Preliminary, Resulted Discharge Medications Scheduled Acetaminophen (Acetaminophen) 325 Mg Tablet, 650 MG PO BID, (Reported) Alendronate Sodium (Alendronate Sodium) 70 Mg Tablet, 70 MG PO QWEEK, (Reported) THURSDAY AT 0600 Apixaban (Eliquis) 2.5 Mg Tablet, 2.5 MG PO BID, (Reported) Diltiazem Hcl (Cardizem Cd) 180 Mg Cap.er.24h, 180 MG PO BID, (Reported) Famotidine (Famotidine) 20 Mg Tab, 20 MG PO DAILY, (Reported) Fluticasone/Vilanterol (Breo Ellipta 100-25 Mcg INH) 1 Each Blst.w.dev, 1 PUFF INH DAILY, (Reported) Furosemide (Furosemide) 40 Mg Tablet, 40 MG PO BID, (Reported) 0830/1330 Ipratropium/Albuterol Sulfate (Iprat-Albut 0.5-3(2.5) mg/3 ml) 1 Shayna Shayna, 1 VIAL NEB TID, (Reported) Potassium Chloride (Potassium Chloride) 20 Meq Tab.er.prt, 20 MEQ PO TID, (Reported) Prednisone (Prednisone) 10 Mg Tablet, 10 MG PO DAILY, (Reported) Sennosides/Docusate Sodium (Senna-S Tablet) 1 Each Tablet, 1 TAB PO BID, (Reported) Sertraline Hcl (Zoloft) 100 Mg Tab, 150 MG PO DAILY, (Reported) Scheduled PRN Acetaminophen (Acetaminophen) 325 Mg Tablet, 650 MG PO Q4H PRN for PAIN LEVEL 1- 4, (Reported) Bisacodyl (Dulcolax) 10 Mg Sup, 10 MG IA DAILY PRN for CONSTIPATION, (Reported) Magnesium Hydroxide (Milk of Magnesia) 400 Mg/5 Ml Oral.susp, 2,400 MG PO DAILY PRN for CONSTIPATION, (Reported) Sodium Phosphate,[place]-Dibasic (Enema) 133 Ml Enema, 1 DEBBIE IA DAILY PRN for CONSTIPATION, (Reported) Allergies Coded Allergies: ciprofloxacin (Verified Allergy, Unknown, UNKNOWN, 06/25/19) haloperidol (Verified Allergy, Unknown, UNKNOWN, 06/25/19) propoxyphene (Verified Allergy, Unknown, UNKNOWN, 06/25/19) Destiny Pollard DO May 09, 2021 07:59 LIZA ARREOLA MD May 10, 2021 06:34
[2021-05-09] MEDS ORDERED: cefTRIAXone SOD 1 GM in D5W MINI-BAG PLUS 50 ML IV SCH (10:00)
[2021-05-09] MEDS ORDERED: REMDESIVIR 100 MG in NS 250 ML IV SCH (15:00)
[2021-05-09] MEDS ORDERED: SODIUM CHLORIDE 0.9% INJ 10 ML SYR IV SCH (15:00)
--- NOTE | 2021-05-09 20:04 | ECGEPIP ---
[facility] - ED Test Date: 2021-05-08 Pat Name: CORI LONG Department: Room: - Gender: Female Palliative Senior Np: Hermilo NGUYEN : 1935 Requested By: Rosalie King Order Number: [id number] Reading MD: Rosalie King Measurements Intervals [place] Rate: 136 P: MS: QRS: 10 QRSD: 68 T: 60 QT: 300 QTc: 451 Interpretive Statements Atrial flutter with variable AV block Low voltage QRS Cannot rule out Anterior infarct , age undetermined NSTTW abnormalities PRWP low voltage increased rate 06/30/19 Electronically Signed on 05-09-2021 20:03:55 EDT by Rosalie King
== END 2021-05-09 00:30 | disposition expired | DRG 871 ==
LOC: EDBD 08:38 → M ED 08:38 → M ED INP 11:33 → ENRESERV 12:19 → M 4MAIN 17:35
PROVIDERS: ADMIT Internal Medicine; ATTEND Internal Medicine
DX: A41.9 Sepsis, unspecified organism (principal); J96.01 Acute respiratory failure with hypoxia; J12.82 Pneumonia due to coronavirus disease 2019; U07.1 COVID-19; J15.9 Unspecified bacterial pneumonia; G93.41 Metabolic encephalopathy; N17.9 Acute kidney failure, unspecified; I48.20 Chronic atrial fibrillation, unspecified; I13.0 Hypertensive heart and chronic kidney disease with heart failure and stage 1 through stage 4 chronic kidney disease, or unspecified chronic kidney disease; I50.32 Chronic diastolic (congestive) heart failure; N18.30 Chronic kidney disease, stage 3 unspecified; E87.5 Hyperkalemia; Z51.5 Encounter for palliative care; Z66 Do not resuscitate; J44.9 Chronic obstructive pulmonary disease, unspecified; G30.9 Alzheimer's disease, unspecified; F02.80 Dementia in other diseases classified elsewhere, unspecified severity, without behavioral disturbance, psychotic disturbance, mood disturbance, and anxiety; K21.9 Gastro-esophageal reflux disease without esophagitis; I25.10 Atherosclerotic heart disease of native coronary artery without angina pectoris; F32.A Depression, unspecified; F41.9 Anxiety disorder, unspecified; Z79.01 Long term (current) use of anticoagulants; Z79.899 Other long term (current) drug therapy; Z88.1 Allergy status to other antibiotic agents; Z88.8 Allergy status to other drugs, medicaments and biological substances

== ENCOUNTER → 2021-05-08 | Outpatient (REF) | payer MEDICARE, OTHER, MEDICAID ==
[~2021-05-08] MED LIST changes: -ACETAMINOPHEN TAB 650MG DOSE (2X325MG) PO ONE; -ALBUTEROL 90 MCG/ACT 8GM HFA INHALER INH PRN; -ALBUTEROL SULFATE 2.5 MG/0.5 ML INH NEB SOLN INH PRN; -BAMLANIVIMAB 700 MG, ETESEVIMAB 1,400 MG in NS 250 ML IV ONE; -EPINEPHrine INJ 1 MG/ML 1ML AMP IM PRN; -NS 1,000 ML IV SCH; -diphenhydrAMINE 25MG CAP PO ONE; -diphenhydrAMINE 50MG/ML VIAL (J1200) IV PRN; -methylPREDNISolone 125MG 2ML VIAL IV PRN
== END ==
LOC: SKLAB2 07:00
PROVIDERS: ATTEND Internal Medicine
DX: U07.1 COVID-19 (principal); Z53.9 Procedure and treatment not carried out, unspecified reason